=== PATIENT | female | born 1950 | race Caucasian/White ===

== ENCOUNTER 2020-12-05 13:55 | Emergency (ER) | payer OTHER, SELFPAY ==
[2020-12-05 13:57] VITALS: BP 182/101; PULSE 78; RESP 18; TEMP 36.9; O2SAT 98; BMI 28.3
[2020-12-05 15:01] VITALS: BP 141/66; PULSE 82; O2SAT 96
--- NOTE | 2020-12-05 15:17 | XR_ITS ---
PROCEDURE: XR CHEST PORTABLE CLINICAL HISTORY: SOB COMPARISON: No exams were available for comparison FINDINGS: The cardiomediastinal silhouette and pulmonary vascularity are within normal limits. The lungs are clear without infiltrates, suspicious nodules, or pleural effusions. No acute bony abnormalities. IMPRESSION: No acute findings. Dictated by: Umang Cates MD 12/05/2020 15:46 Umang Cates MD in [place] 12/05/2020 15:46
[2020-12-05 15:30] VITALS: BP 165/95; PULSE 81; O2SAT 98
[2020-12-05 16:00] VITALS: BP 170/84; PULSE 81; O2SAT 98
[2020-12-05 16:30] VITALS: BP 155/81; PULSE 75; O2SAT 97
[2020-12-05 17:05] VITALS: BP 155/81; PULSE 75; RESP 20; TEMP 36.9; O2SAT 98
--- NOTE | 2020-12-05 17:07 | PC.NURSE ---
Pt needs to leave due to her ride leaving her, requesting that she get the paper work to sign out. MD epstein
--- NOTE | 2020-12-05 17:10 | HMH.EDGENADL ---
ED Disposition Clinical Impression: Shortness of breath Disposition: Left Against Medical Advice Condition on Discharge: Good Referrals: Provider,Referral, [Primary Care Provider] - - Critical Care Critical Care Time: No Attestation: On 12/05/20, the high probability of a clinically significant, sudden or life threatening deterioration of the following system(s) required my full and direct attention, intervention and personal management. The time I documented below is in addition to time spent performing reported procedures but includes the following listed in this critical care notation. Medical Decision Making - Medical Records Medical records reviewed: Yes: I reviewed the patient's medical records. - Roque Inquiry Pt receiving controlled substance: No Vital Signs: 12/05/20 13:57 12/05/20 15:01 12/05/20 15:30 Temperature 98.5 F Temperature Source Oral Pulse Rate 82 81 Pulse Rate [Left Radial] 78 Respiratory Rate 18 Blood Pressure 141/66 H 165/95 H Blood Pressure [Right Arm] 182/101 H Blood Pressure Mean 105 118 Blood Pressure Mean [Right Arm] 128 Blood Pressure Source [Right Arm] Automatic Cuff Blood Pressure Position [Right Arm] Sitting 02 Sat by Pulse Oximetry 98 96 98 Oxygen Delivery Method Room Air 12/05/20 16:00 12/05/20 16:30 12/05/20 17:05 Temperature 98.5 F Temperature Source Oral Pulse Rate 81 75 75 Pulse Rate [Left Radial] Respiratory Rate 20 Blood Pressure 170/84 H 155/81 H 155/81 H Blood Pressure [Right Arm] Blood Pressure Mean 112 110 Blood Pressure Mean [Right Arm] Blood Pressure Source [Right Arm] Blood Pressure Position [Right Arm] 02 Sat by Pulse Oximetry 98 97 Oxygen Delivery Method Room Air - Lab Data Lab Results 12/05/20 17:05: WBC 10.5, RBC 4.39, Hgb 13.3, Hct 40.9, MCV 93.3, MCH 30.4, MCHC 32.5, RDW 13.5, Plt Count 247, MPV 8.9, Neut % (Auto) 67.5, Lymph % (Auto) 23.4, [place] % (Auto) 6.9, Eos % (Auto) 1.5, Baso % (Auto) 0.7, Neut # (Auto) 7.1, Lymph # (Auto) 2.5, [place] # (Auto) 0.7, Eos # (Auto) 0.2, Baso # (Auto) 0.1 12/05/20 17:05: Sodium 140, Potassium 4.3, Chloride 102, Carbon Dioxide 26, Anion Gap 16.3 H, BUN 16, Creatinine 1.10 H, Estimated Creat Clear 58, Estimated GFR 49 L, Est GFR ( Amer) 59, Glucose 100, Calcium 9.9, Total Bilirubin 0.3, AST 34, ALT 29, Alkaline Phosphatase 74, Troponin I < 0.01, NT-Pro-B Natriuret Pep 215 H, Total Protein 7.5, Albumin 4.4, Globulin 3.1, Albumin/Globulin Ratio 1.4 12/05/20 17:05: D-Dimer 0.61 H Result diagrams: 12/05/20 17:05 12/05/20 17:05 Orders (Tests/Meds): ORDERS Category Date Time Status ECG Request by /Bina Stat Y 12/05/20 15:18 Ordered Medical Decision Narrative: Pt to the ED as a 70 year old female who comes in for chronic shortness of breath and wanting a cardiac stress test. DDx includes ACS, PE, PTX, or pneumonia. Pt will have CBC, CMP, troponin, CXr and D-Dimer for this. CXR with no evidence of pleural effusion, prior to getting labs back pt stated that her ride was here and that she needed to go, pt was informed that I am unable to intervene on her symptoms or diagnose these without more workup and she has stated that she understands this and she will come back if her symptoms get worse. I discussed that pt could be having a life threatening problem that we could miss and she is able to verbalise these risks and understands them. After pt left I did view her labs which did not show an initial elevated troponin, no anemia, or significant BNP elevation. D dimer elevated at 0.6 but would be below her cutoff for age adjusted score and the years criteria. Pt was encouraged prior to leaving to followup with her PCP for possible cardiology followup evaluation. General Adult HPI - General Chief complaint: Shortness of Breath/Dyspnea Stated complaint: soa, congestion, cough Time Seen by Provider: 12/05/20 14:00 Mode of Arrival: Wheelchair Limitati
[2020-12-05 17:29] LABS: Chloride 102 mmol/L (98-107); Potassium 4.3 mmoL/L (3.5-5.1); Sodium 140 mmol/L (136-145)
[2020-12-05 17:32] LABS: Alanine Aminotransferase 29 U/L (12-78); Albumin Level 4.4 g/dl (3.5-5.0); Albumin/Globulin Ratio 1.4 (1.1-1.8); Alkaline Phosphatase 74 U/L (38-126); Anion Gap 16.3 mEq/L (5-15); Aspartate Amino Transferase 34 U/L (14-36); Bilirubin,Total 0.3 mg/dl (0.2-1.3); Blood Urea Nitrogen 16 mg/dl (7-17); Carbon Dioxide 26 mmol/L (22.0-30.0); Creatinine Clearance Estimated 58 mL/min (50-200); Estimated Glomerular Filt Rate 49 ml/min (>60); GFR (African American) 59 ML/MIN (>60); Globulin 3.1 g/dL (1.3-3.2); Total Protein,Serum 7.5 g/dl (6.3-8.2)
[2020-12-05 17:33] LABS: Calcium 9.9 mg/dl (8.4-10.2); Glucose 100 mg/dl (74-100)
[2020-12-05 17:38] LABS: Basophils # 0.1 K/mm3 (0-0.2); Basophils % 0.7 % (0.1-2.0); Eosinophils # 0.2 K/mm3 (0.0-0.4); Eosinophils % 1.5 % (0.1-12.0); Hematocrit 40.9 % (37.0-47.0); Hemoglobin 13.3 g/dL (12.2-16.2); Lymphocytes # 2.5 K/mm3 (0.7-4.5); Lymphocytes % 23.4 % (10-50); Mean Corpuscular HGB Conc 32.5 g/dL (31.8-35.4); Mean Corpuscular Hemoglobin 30.4 pg (27.0-31.2); Mean Corpuscular Volume 93.3 fl (81-99); Mean Platelet Volume 8.9 fl (7.4-10.4); Monocytes # 0.7 K/mm3 (0.1-1.0); Monocytes % 6.9 % (1.7-9.3); Neutrophils # 7.1 K/mm3 (1.8-7.8); Neutrophils % 67.5 % (37.0-80.0); Platelet Count 247 K/mm3 (142-424); Red Blood Count 4.39 M/mm3 (4.20-5.40); Red Cell Distribution Width 13.5 % (11.5-17.5); White Blood Count 10.5 K/mm3 (4.8-10.8)
[2020-12-05 17:42] LABS: NT Pro Brain Natriuretic Pep. 215 pg/mL (0-125)
[2020-12-05 17:47] LABS: Troponin I < 0.01 ng/ml (0.00-0.034)
[2020-12-05 18:54] LABS: D-Dimer 0.61 ug/mL (0.0-0.5)
== END 2020-12-05 17:06 | disposition left against medical advice (07) ==
PROVIDERS: Emergency Provider Student in an Organized Health Care Education/Training Program
DX: R06.02 Shortness of breath (principal); R20.0 Anesthesia of skin; R05 Cough
CPT/HCPCS: 36415; 71045; 80053; 83880; 84484; 85025; 85378; 99282

== ENCOUNTER → 2023-01-05 15:40 | Outpatient (CLI) | payer OTHER, SELFPAY ==
[2023-01-05 17:07] LABS: Chloride 103 mmol/L (98-107); Potassium 5.4 mmoL/L (3.5-5.1); Sodium 138 mmol/L (136-145)
[2023-01-05 17:09] LABS: Alanine Aminotransferase 23 U/L (12-78); Alkaline Phosphatase 103 U/L (38-126); Anion Gap 14.4 mEq/L (5-15); Aspartate Amino Transferase 22 U/L (14-36); Bilirubin,Direct 0.3 mg/dl (0.0-0.4); Bilirubin,Indirect 0.2 mg/dL (0.0-0.9); Bilirubin,Total 0.5 mg/dl (0.2-1.3); Bilirubin,Unconjugated 0.2 mg/dL (0.0-1.1); Blood Urea Nitrogen 28 mg/dl (7-17); Calcium 9.2 mg/dl (8.4-10.2); Carbon Dioxide 26 mmol/L (22.0-30.0); Cholesterol 191 mg/dl (140-200); Estimated Glomerular Filt Rate 44 ml/min (>60); GFR (African American) 53 ML/MIN (>60); Glucose 99 mg/dl (74-100); Iron 78 ug/dL (37-170); Triglycerides 261 mg/dl (30-150); VLDL Cholesterol 52 mg/dL (0-40)
[2023-01-05 17:10] LABS: Albumin Level 4.1 g/dl (3.5-5.0); Chol/HDL Ratio 5.2 (1-3.5); HDL Cholesterol 37 mg/dl (40-60); Total Protein,Serum 7.1 g/dl (6.3-8.2)
[2023-01-05 17:19] LABS: Total Iron Binding Capacity 331 ug/dL (265-497)
[2023-01-05 17:21] LABS: Direct LDL Cholesterol 83.36 mg/dL (100-129)
[2023-01-05 17:26] LABS: Free T4 (Free Thyroxine) 1.16 ng/dl (0.78-2.19)
[2023-01-05 17:27] LABS: 25-OH Vitamin D, Total 72.4 ng/mL (30-100)
[2023-01-05 17:41] LABS: Thyroid Stimulating Hormone 1.27 uIU/mL (0.465-4.68)
[2023-01-05 17:52] LABS: Magnesium 1.6 mg/dl (1.6-2.3)
[2023-01-05 18:22] LABS: Basophils # 0.1 K/mm3 (0-0.2); Basophils % 0.4 % (0.1-2.0); Eosinophils # 0.3 K/mm3 (0.0-0.4); Eosinophils % 2.8 % (0.1-12.0); Hematocrit 38.6 % (37.0-47.0); Hemoglobin 12.7 g/dL (12.2-16.2); Lymphocytes # 2.8 K/mm3 (0.7-4.5); Lymphocytes % 25.7 % (10-50); Mean Corpuscular HGB Conc 32.8 g/dL (31.8-35.4); Mean Corpuscular Hemoglobin 30.6 pg (27.0-31.2); Mean Corpuscular Volume 93.5 fl (81-99); Mean Platelet Volume 9.9 fl (7.4-10.4); Monocytes # 0.7 K/mm3 (0.1-1.0); Monocytes % 6.4 % (1.7-9.3); Neutrophils % 64.7 % (37.0-80.0); Platelet Count 241 K/mm3 (142-424); Red Blood Count 4.13 M/mm3 (4.20-5.40); Red Cell Distribution Width 14.7 % (11.5-17.5); White Blood Count 10.9 K/mm3 (4.8-10.8)
== END ==
PROVIDERS: PCP Nurse Practitioner Family; Visit Provider Internal Medicine
DX: R06.00 Dyspnea, unspecified (principal); R00.2 Palpitations; R53.83 Other fatigue; R60.0 Localized edema; R94.30 Abnormal result of cardiovascular function study, unspecified; R94.31 Abnormal electrocardiogram [ECG] [EKG]; E66.9 Obesity, unspecified; Z68.39 Body mass index [BMI] 39.0-39.9, adult
CPT/HCPCS: 36415; 80048; 80061; 80076; 82306; 83540; 83550; 83735; 84439; 84443; 85025

== ENCOUNTER → 2023-01-15 14:07 | Outpatient (CLI) | payer OTHER, SELFPAY ==
[2023-01-15 15:49] LABS: Anion Gap 15.8 mEq/L (5-15); Blood Urea Nitrogen 24 mg/dl (7-17); Calcium 9.4 mg/dl (8.4-10.2); Carbon Dioxide 25 mmol/L (22.0-30.0); Chloride 102 mmol/L (98-107); Estimated Glomerular Filt Rate 49 ml/min (>60); GFR (African American) 59 ML/MIN (>60); Glucose 106 mg/dl (74-100); Potassium 4.8 mmoL/L (3.5-5.1); Sodium 138 mmol/L (136-145)
== END ==
PROVIDERS: Nurse Practitioner; PCP Nurse Practitioner Family; Visit Provider Internal Medicine
DX: R06.09 Other forms of dyspnea (principal); R94.30 Abnormal result of cardiovascular function study, unspecified; R94.31 Abnormal electrocardiogram [ECG] [EKG]
CPT/HCPCS: 36415; 80048

== ENCOUNTER 2023-01-22 07:27 | Day surgery (SDC) | payer MEDICARE, SELFPAY ==
[2023-01-22] VITALS (11 sets, daily range): BP systolic 109–168; BP diastolic 50–81; PULSE 69–93; RESP 17–20; O2SAT 95–100; BMI 39.4
--- NOTE | 2023-01-22 07:08 | IR_ITS ---
APPROVED REPORT Patient Location: [facility]: YAMILKA Mirza RT (R) PROCEDURES Right heart catheterization Left heart catheterization Left ventriculogram Selective coronary angiogram INDICATION Pulmonary hypertension, Angina pectoris, Abnormal Myoview Informed consent was obtained prior to the procedure. COMPLICATIONS None Estimated Blood Loss: Less than 10 ml TECHNIQUE One percent lidocaine used to anesthetize the right anterior aspect of the wrist. The right radial artery was accessed via the Seldinger technique. A 6 Polish sheath was placed in the right radial artery. 2.5 mg of Verapamil, 800 mcg of nitroglycerin, 1mg Lidocaine and 5000 U Heparin were given through the arterial sheath. The papa catheter was also used to perform left heart catheterization, left ventriculogram and selective coronary angiogram. At the end of the procedure the sheath was removed good hemostasis was achieved using Traclet band, patient was transferred to the postop holding area in stable condition. One percent lidocaine was used to anesthetize the right anterior aspect of the neck. A scaffold setter needle was used to identify the right internal jugular vein. Following this a larger cannulation needle was used to cannulate the right internal jugular vein and a wire was passed into the vein. Prior to the 7 Polish sheath being inserted the wire was confirmed under fluoroscopic guidance to be in the inferior vena cava. A 7 Polish sheath was introduced and a Henriette-Shireen catheter was floated using hemodynamic waveforms in the pulmonary artery, right ventricle , and right atrium. Saturations were obtained in the pulmonary artery and the right atrium. At the end of the procedure the patient was transferred to the postop holding area in stable condition for sheath removal. ANGIOGRAPHIC RESULTS The left main artery Normal The left anterior descending artery Mild diffuse 10% luminal irregularities The circumflex artery Dominant mild diffuse 10% luminal irregularities The right coronary artery Nondominant mild diffuse 10% luminal irregularities The GARCIA ventriculogram reveals Normal 65% The left ventricular end-diastolic pressure 20 mmHg Right atrial pressure 15 mmHg Pulmonary pressure 35/20 mmHg Pulmonary artery occlusion pressure 18 mmHg Right atrial saturation and pulmonary artery saturation both 74% Hemoglobin 12.4 Aortic saturation 99% Cardiac output 6.5 L/min Cardiac index 3.0 IMPRESSION Mild nonflow limiting coronary artery disease Normal ejection fraction Mild pulmonary hypertension Evidence of diastolic dysfunction PLAN 1. Medical management Electronically signed by : Ulysses Durham MD 01/22/2023 10:28:26
--- NOTE | 2023-01-22 08:02 | CA_ITS ---
APPROVED REPORT EXAM: Comprehensive 2D, Doppler, and color-flow Echocardiogram Belly Packer: Jackelin Krishnamurthy, CHAI, RVS Ht: 5 ft 5 in Wt: 237lbs BSA: 2.13 BP: 145/68 mmHg Indications: Pre cardiac Cath, HTN, Fatigue, Palpitations, PHTN, Asthma Echo Enhancing Agent Comments: Large body habitus 2D Dimensions IVSd 0.97 cm LVEF (Visual) 61.70 % PWd 0.99 cm LA Volume 37.50 mL LVDd 5.04 cm LA Volume Index 17.20 mL/m2 (M/F) 16-34 LVDs 3.36 cm Aortic Root 2.97 cm Left Atrium 3.32 cm LVOT 2.07 cm (M/F) 1.5-2.5 M-Mode Dimensions LA Diam 4.47 cm (1.9-4.0) LVDd 5.88 cm (3.5-5.7) Ao Diam 3.37 cm (2.0-3.7) LVDs 4.05 cm (3.5-5.7) EF (Teich) 58.10% EPSs 0.64 cm FS 31.10% EDV (Teich) 171.90 mL TAPSE 2.78 (<1.7) ESV (Teich) 72.10 mL LV Diastology E Decel Time 193.00 (160-240 msec) E/A Ratio 0.74 MED E' 4.10 (< 7 cm/sec) MED A' 10.00 cm/s E'/MED E' Ratio 17.76 (>14) LAT E' 7.30 (<10 cm/sec) LAT A' 11.00 cm/s E/LAT E' Ratio 9.97 (>14) Aortic Valve LVOT Max 130.00 (70-110 cm/s) LVOT VTI 25.59 cm AoV Peak Tyree. 185.00 (50-130 cm/s) AO Peak GR. 13.70 mmHg AO Mean GR. 6.80 (<5 mmHg) AO VTI 34.95 (18-25 cm) MARGUERITE (VTI) 2.46 (2.5-4.5 cm2) Mitral Valve MV A Velocity 98.00 (40-130 cm/s) E/A Ratio 0.74 MV Decel. Time 193.00 (160-240 ms) Pulmonary Valve PV Peak Velocity 102.00 (50-150 cm/s) Left Ventricle The left ventricle is normal size. The left ventricular systolic function is normal. The left ventricular ejection fraction is within the normal range. There is increased LV wall thickness. There is normal LV segmental wall motion. Transmitral Doppler flow pattern suggests impaired LV relaxation. LVEF is 55%. Right Ventricle The right ventricle is normal size. The right ventricular systolic function is normal. There is increased RV wall thickness. Atria The left atrium size is mildly dilated. The right atrium size is normal. The interatrial septum is not well visualized. Aortic Valve The aortic valve opens well. There is no aortic valvular stenosis. No aortic regurgitation is present. Mitral Valve The mitral valve is normal in structure. No evidence of mitral valve stenosis. Trace mitral regurgitation. Tricuspid Valve The tricuspid valve leaflets are thin and pliable. Trace tricuspid regurgitation. RVSP is normal. Pulmonic Valve The pulmonary valve is normal in structure. Trace pulmonic regurgitation. Great Vessels The aortic root is normal in size. The ascending aorta is normal in size. IVC is normal in size and collapses >50% with inspiration. Pericardium Trivial pericardial effusion is present. Other Information Study Quality: Fair Conclusion Normal biventricular systolic function. Mild RV dilatation. Trivial pericardial effusion. Electronically signed by : Saundra Kaiser MD 01/24/2023 21:45:08
[2023-01-22 08:49] LABS: Basophils # 0.1 K/mm3 (0-0.2); Basophils % 0.4 % (0.1-2.0); Eosinophils # 0.3 K/mm3 (0.0-0.4); Eosinophils % 2.2 % (0.1-12.0); Hematocrit 36.4 % (37.0-47.0); Hemoglobin 12.4 g/dL (12.2-16.2); Lymphocytes # 2.7 K/mm3 (0.7-4.5); Lymphocytes % 21.6 % (10-50); Mean Corpuscular HGB Conc 34.1 g/dL (31.8-35.4); Mean Corpuscular Hemoglobin 32.2 pg (27.0-31.2); Mean Corpuscular Volume 94.3 fl (81-99); Mean Platelet Volume 8.6 fl (7.4-10.4); Monocytes # 0.9 K/mm3 (0.1-1.0); Monocytes % 6.9 % (1.7-9.3); Neutrophils # 8.7 K/mm3 (1.8-7.8); Neutrophils % 68.9 % (37.0-80.0); Platelet Count 247 K/mm3 (142-424); Red Blood Count 3.86 M/mm3 (4.20-5.40); Red Cell Distribution Width 14.6 % (11.5-17.5); White Blood Count 12.5 K/mm3 (4.8-10.8)
[2023-01-22 08:52] LABS: Chloride 105 mmol/L (98-107); Potassium 4.8 mmoL/L (3.5-5.1); Sodium 137 mmol/L (136-145)
[2023-01-22 08:55] LABS: Anion Gap 13.8 mEq/L (5-15); Blood Urea Nitrogen 29 mg/dl (7-17); Calcium 9.2 mg/dl (8.4-10.2); Carbon Dioxide 23 mmol/L (22.0-30.0); Creatinine Clearance Estimated 66 mL/min (50-200); Estimated Glomerular Filt Rate 40 ml/min (>60); GFR (African American) 49 ML/MIN (>60); Glucose 106 mg/dl (74-100)
[2023-01-22 11:01] LABS: CATHL Arterial O2 SAT 74.6 % (90-100); CATHL Venous O2 SAT 74.6 % (75-80)
== END 2023-01-22 13:13 | disposition home or self-care (01) ==
PROVIDERS: PCP Nurse Practitioner Family; Visit Provider Internal Medicine
DX: R00.2 Palpitations (principal); R06.00 Dyspnea, unspecified; R53.83 Other fatigue; R60.0 Localized edema; R94.30 Abnormal result of cardiovascular function study, unspecified; R94.31 Abnormal electrocardiogram [ECG] [EKG]; I27.20 Pulmonary hypertension, unspecified; Z79.899 Other long term (current) drug therapy
CPT/HCPCS: 80048; 82810; 85025; 93306; 93460; 99152; C1760; C1769; C1894; J1644; Q9967

== ENCOUNTER → 2023-02-10 13:32 | Outpatient (CLI) | payer MEDICARE, SELFPAY ==
[2023-02-10 14:09] LABS: Chloride 102 mmol/L (98-107); Potassium 5.7 mmoL/L (3.5-5.1); Sodium 134 mmol/L (136-145)
[2023-02-10 14:12] LABS: Anion Gap 14.7 mEq/L (5-15); Blood Urea Nitrogen 41 mg/dl (7-17); Calcium 9.2 mg/dl (8.4-10.2); Carbon Dioxide 23 mmol/L (22.0-30.0); Estimated Glomerular Filt Rate 32 ml/min (>60); GFR (African American) 38 ML/MIN (>60); Glucose 104 mg/dl (74-100)
== END ==
PROVIDERS: PCP Nurse Practitioner Family; Visit Provider Internal Medicine
DX: I27.20 Pulmonary hypertension, unspecified (principal); I51.89 Other ill-defined heart diseases; R06.00 Dyspnea, unspecified; R60.0 Localized edema; R94.31 Abnormal electrocardiogram [ECG] [EKG]
CPT/HCPCS: 36415; 80048

== ENCOUNTER → 2023-03-05 13:53 | Outpatient (CLI) | payer MEDICARE, SELFPAY ==
[2023-03-05 15:13] LABS: Anion Gap 18.6 mEq/L (5-15); Blood Urea Nitrogen 25 mg/dl (7-17); Carbon Dioxide 19 mmol/L (22.0-30.0); Chloride 100 mmol/L (98-107); Estimated Glomerular Filt Rate 40 ml/min (>60); GFR (African American) 49 ML/MIN (>60); Glucose 146 mg/dl (74-100); Potassium 4.6 mmoL/L (3.5-5.1); Sodium 133 mmol/L (136-145)
== END ==
PROVIDERS: PCP Nurse Practitioner Family; Visit Provider Internal Medicine
DX: I25.10 Atherosclerotic heart disease of native coronary artery without angina pectoris (principal); I27.20 Pulmonary hypertension, unspecified; I51.89 Other ill-defined heart diseases; R00.2 Palpitations; R06.00 Dyspnea, unspecified; R53.83 Other fatigue; R60.0 Localized edema; R94.30 Abnormal result of cardiovascular function study, unspecified; R94.31 Abnormal electrocardiogram [ECG] [EKG]; Z87.891 Personal history of nicotine dependence
CPT/HCPCS: 36415; 80048

== ENCOUNTER 2023-04-28 14:22 | Outpatient (CLI) | payer MEDICARE, SELFPAY ==
[2023-04-28 15:08] LABS: Basophils # 0.1 K/mm3 (0-0.2); Basophils % 0.7 % (0.1-2.0); Eosinophils # 0.4 K/mm3 (0.0-0.4); Eosinophils % 3.6 % (0.1-12.0); Hematocrit 39.1 % (37.0-47.0); Hemoglobin 12.9 g/dL (12.2-16.2); Lymphocytes # 2.8 K/mm3 (0.7-4.5); Lymphocytes % 27.4 % (10-50); Mean Corpuscular HGB Conc 32.9 g/dL (31.8-35.4); Mean Corpuscular Hemoglobin 30.5 pg (27.0-31.2); Mean Corpuscular Volume 92.8 fl (81-99); Mean Platelet Volume 8.5 fl (7.4-10.4); Monocytes # 0.7 K/mm3 (0.1-1.0); Monocytes % 6.5 % (1.7-9.3); Neutrophils # 6.3 K/mm3 (1.8-7.8); Neutrophils % 61.8 % (37.0-80.0); Platelet Count 258 K/mm3 (142-424); Red Blood Count 4.21 M/mm3 (4.20-5.40); White Blood Count 10.2 K/mm3 (4.8-10.8)
[2023-04-28 15:29] LABS: Chloride 104 mmol/L (98-107)
[2023-04-28 15:30] LABS: Potassium 5.5 mmoL/L (3.5-5.1); Sodium 138 mmol/L (136-145)
[2023-04-28 15:32] LABS: Alanine Aminotransferase 22 U/L (12-78); Alkaline Phosphatase 104 U/L (38-126); Anion Gap 13.5 mEq/L (5-15); Aspartate Amino Transferase 24 U/L (14-36); Bilirubin,Direct 0.4 mg/dl (0.0-0.4); Bilirubin,Total 0.4 mg/dl (0.2-1.3); Blood Urea Nitrogen 28 mg/dl (7-17); Calcium 9.3 mg/dl (8.4-10.2); Carbon Dioxide 26 mmol/L (22.0-30.0); Cholesterol 193 mg/dl (140-200); Estimated Glomerular Filt Rate 34 ml/min (>60); GFR (African American) 41 ML/MIN (>60); Glucose 84 mg/dl (74-100)
[2023-04-28 15:33] LABS: Triglycerides 418 mg/dl (30-150)
[2023-04-28 15:42] LABS: NT Pro Brain Natriuretic Pep. 195 pg/mL (0-125)
[2023-04-28 15:52] LABS: Direct LDL Cholesterol 87.94 mg/dL (100-129)
[2023-04-28 15:54] LABS: Free T4 (Free Thyroxine) 1.12 ng/dl (0.78-2.19)
[2023-04-28 16:28] LABS: Albumin Level 4.1 g/dl (3.5-5.0); Chol/HDL Ratio 5.8 (1-3.5); HDL Cholesterol 33 mg/dl (40-60); Magnesium 1.7 mg/dl (1.6-2.3)
== END 2023-04-28 23:59 ==
LOC: LAB 14:24
PROVIDERS: PCP Nurse Practitioner Family; Visit Provider Physician Assistant
DX: I25.10 Atherosclerotic heart disease of native coronary artery without angina pectoris (principal); I27.20 Pulmonary hypertension, unspecified; R06.00 Dyspnea, unspecified; R53.83 Other fatigue; R60.0 Localized edema; R94.31 Abnormal electrocardiogram [ECG] [EKG]; I50.30 Unspecified diastolic (congestive) heart failure
CPT/HCPCS: 36415; 80048; 80061; 80076; 83735; 83880; 84439; 84443; 85025

== ENCOUNTER 2023-07-30 12:52 | Outpatient (CLI) | payer MEDICARE, SELFPAY ==
[2023-07-30 13:35] LABS: Chloride 108 mmol/L (98-107)
[2023-07-30 13:36] LABS: Sodium 141 mmol/L (136-145)
[2023-07-30 13:38] LABS: Blood Urea Nitrogen 36 mg/dl (7-17); Estimated Glomerular Filt Rate 30 ml/min (>60); GFR (African American) 36 ML/MIN (>60)
[2023-07-30 13:39] LABS: Calcium 9.3 mg/dl (8.4-10.2); Carbon Dioxide 25 mmol/L (22.0-30.0); Glucose 115 mg/dl (74-100)
[2023-07-30 13:48] LABS: NT Pro Brain Natriuretic Pep. 62.5 pg/mL (0-125)
== END 2023-07-30 23:59 | disposition home or self-care (01) ==
LOC: LAB 12:53
PROVIDERS: PCP Nurse Practitioner Family; Visit Provider Physician Assistant
DX: I25.10 Atherosclerotic heart disease of native coronary artery without angina pectoris (principal); R06.02 Shortness of breath; Z79.899 Other long term (current) drug therapy
CPT/HCPCS: 36415; 80048; 83880

== ENCOUNTER 2023-08-13 12:56 | Outpatient (CLI) | payer MEDICARE, SELFPAY ==
[2023-08-13 14:50] LABS: Anion Gap 14.9 mEq/L (5-15); Blood Urea Nitrogen 24 mg/dl (7-17); Calcium 9.6 mg/dl (8.4-10.2); Carbon Dioxide 27 mmol/L (22.0-30.0); Chloride 99 mmol/L (98-107); Estimated Glomerular Filt Rate 40 ml/min (>60); GFR (African American) 49 ML/MIN (>60); Glucose 103 mg/dl (74-100); Potassium 4.9 mmoL/L (3.5-5.1); Sodium 136 mmol/L (136-145)
[2023-08-13 14:57] LABS: NT Pro Brain Natriuretic Pep. 152 pg/mL (0-125)
== END 2023-08-13 23:59 | disposition home or self-care (01) ==
PROVIDERS: PCP Nurse Practitioner Family; Visit Provider Physician Assistant
DX: R06.09 Other forms of dyspnea (principal); N18.4 Chronic kidney disease, stage 4 (severe); R60.0 Localized edema
CPT/HCPCS: 36415; 80048; 83880

== ENCOUNTER 2023-10-15 13:11 | Outpatient (CLI) | payer MEDICARE, SELFPAY ==
[2023-10-15 13:59] LABS: Basophils # 0.1 K/mm3 (0-0.2); Basophils % 0.8 % (0.1-2.0); Eosinophils # 0.2 K/mm3 (0.0-0.4); Eosinophils % 2.2 % (0.1-12.0); Hematocrit 39.4 % (37.0-47.0); Hemoglobin 13.1 g/dL (12.2-16.2); Lymphocytes # 3.1 K/mm3 (0.7-4.5); Lymphocytes % 28.1 % (10-50); Mean Corpuscular HGB Conc 33.3 g/dL (31.8-35.4); Mean Corpuscular Volume 93.3 fl (81-99); Mean Platelet Volume 9.1 fl (7.4-10.4); Monocytes # 0.6 K/mm3 (0.1-1.0); Monocytes % 5.4 % (1.7-9.3); Neutrophils % 63.5 % (37.0-80.0); Platelet Count 209 K/mm3 (142-424); Red Blood Count 4.23 M/mm3 (4.20-5.40)
[2023-10-15 14:04] LABS: Alanine Aminotransferase 21 U/L (12-78); Albumin Level 4.2 g/dl (3.5-5.0); Alkaline Phosphatase 69 U/L (38-126); Anion Gap 11.9 mEq/L (5-15); Aspartate Amino Transferase 23 U/L (14-36); Bilirubin,Indirect 0.5 mg/dL (0.0-0.9); Bilirubin,Total 0.5 mg/dl (0.2-1.3); Bilirubin,Unconjugated 0.6 mg/dL (0.0-1.1); Blood Urea Nitrogen 31 mg/dl (7-17); Calcium 9.7 mg/dl (8.4-10.2); Carbon Dioxide 25 mmol/L (22.0-30.0); Chloride 102 mmol/L (98-107); Chol/HDL Ratio 3.6 (1-3.5); Cholesterol 142 mg/dl (140-200); Estimated Glomerular Filt Rate 29 ml/min (>60); GFR (African American) 36 ML/MIN (>60); Glucose 95 mg/dl (74-100); HDL Cholesterol 40 mg/dl (40-60); Magnesium 1.7 mg/dl (1.6-2.3); Potassium 4.9 mmoL/L (3.5-5.1); Sodium 134 mmol/L (136-145); Total Protein,Serum 6.8 g/dl (6.3-8.2); Triglycerides 209 mg/dl (30-150); VLDL Cholesterol 42 mg/dL (0-40)
[2023-10-15 14:15] LABS: Direct LDL Cholesterol 63.18 mg/dL (100-129)
== END 2023-10-15 23:59 | disposition home or self-care (01) ==
LOC: LAB 13:12
PROVIDERS: PCP Nurse Practitioner Family; Visit Provider Physician Assistant
DX: I25.10 Atherosclerotic heart disease of native coronary artery without angina pectoris (principal); I51.89 Other ill-defined heart diseases; I27.20 Pulmonary hypertension, unspecified; R94.31 Abnormal electrocardiogram [ECG] [EKG]; R00.2 Palpitations; R53.83 Other fatigue; R60.0 Localized edema; R06.09 Other forms of dyspnea; N18.4 Chronic kidney disease, stage 4 (severe); E66.9 Obesity, unspecified; Z87.891 Personal history of nicotine dependence
CPT/HCPCS: 36415; 80048; 80061; 80076; 83735; 85025

== ENCOUNTER 2023-12-23 14:33 | Outpatient (CLI) | payer MEDICARE, SELFPAY | END 2023-12-23 23:59 | disposition home or self-care (01) | LOC: LAB 14:35 | PROVIDERS: PCP Nurse Practitioner Family; Visit Provider Physician Assistant | DX: R00.2 Palpitations (principal); I27.20 Pulmonary hypertension, unspecified | CPT/HCPCS: 93225; 93227 ==

== ENCOUNTER 2023-12-25 14:57 | Outpatient (CLI) | payer MEDICARE, SELFPAY | END 2023-12-25 23:59 | disposition home or self-care (01) | LOC: RT 14:59 | PROVIDERS: PCP Nurse Practitioner Family; Visit Provider Physician Assistant | DX: R00.2 Palpitations (principal) | CPT/HCPCS: 93270 ==

== ENCOUNTER 2024-01-25 13:34 | Outpatient (CLI) | payer MEDICARE, SELFPAY ==
[2024-01-25 14:24] LABS: Basophils # 0.1 K/mm3 (0-0.2); Basophils % 0.9 % (0.1-2.0); Eosinophils # 0.2 K/mm3 (0.0-0.4); Eosinophils % 1.7 % (0.1-12.0); Hematocrit 40.6 % (37.0-47.0); Hemoglobin 13.3 g/dL (12.2-16.2); Lymphocytes # 2.7 K/mm3 (0.7-4.5); Lymphocytes % 25.5 % (10-50); Mean Corpuscular HGB Conc 32.8 g/dL (31.8-35.4); Mean Corpuscular Hemoglobin 29.8 pg (27.0-31.2); Mean Corpuscular Volume 90.9 fl (81-99); Mean Platelet Volume 8.4 fl (7.4-10.4); Monocytes # 0.6 K/mm3 (0.1-1.0); Monocytes % 5.3 % (1.7-9.3); Neutrophils # 7.2 K/mm3 (1.8-7.8); Neutrophils % 66.6 % (37.0-80.0); Platelet Count 228 K/mm3 (142-424); Red Blood Count 4.47 M/mm3 (4.20-5.40); White Blood Count 10.7 K/mm3 (4.8-10.8)
[2024-01-25 14:32] LABS: Alanine Aminotransferase 19 U/L (12-78); Albumin Level 3.9 g/dl (3.5-5.0); Alkaline Phosphatase 63 U/L (38-126); Aspartate Amino Transferase 22 U/L (14-36); Bilirubin,Direct 0.4 mg/dl (0.0-0.4); Bilirubin,Indirect 0.2 mg/dL (0.0-0.9); Bilirubin,Total 0.6 mg/dl (0.2-1.3); Bilirubin,Unconjugated 0.2 mg/dL (0.0-1.1); Blood Urea Nitrogen 24 mg/dl (7-17); Calcium 9.3 mg/dl (8.4-10.2); Carbon Dioxide 23 mmol/L (22.0-30.0); Chloride 106 mmol/L (98-107); Cholesterol 162 mg/dl (140-200); Estimated Glomerular Filt Rate 44 ml/min (>60); GFR (African American) 53 ML/MIN (>60); Glucose 89 mg/dl (74-100); HDL Cholesterol 41 mg/dl (40-60); Sodium 135 mmol/L (136-145); Total Protein,Serum 6.5 g/dl (6.3-8.2); Triglycerides 162 mg/dl (30-150); VLDL Cholesterol 32 mg/dL (0-40)
[2024-01-25 14:42] LABS: Direct LDL Cholesterol 73.08 mg/dL (100-129)
[2024-01-25 14:47] LABS: Free T4 (Free Thyroxine) 1.24 ng/dl (0.78-2.19)
[2024-01-25 15:02] LABS: Thyroid Stimulating Hormone 1.01 uIU/mL (0.465-4.68)
[2024-01-25 19:30] LABS: Anion Gap 10.5 mEq/L (5-15); Potassium 4.5 mmoL/L (3.5-5.1)
== END 2024-01-25 23:59 | disposition home or self-care (01) ==
LOC: LAB 13:36
PROVIDERS: PCP Nurse Practitioner Family; Visit Provider Physician Assistant
DX: E66.9 Obesity, unspecified (principal); N18.4 Chronic kidney disease, stage 4 (severe); I25.10 Atherosclerotic heart disease of native coronary artery without angina pectoris; I27.20 Pulmonary hypertension, unspecified; R94.31 Abnormal electrocardiogram [ECG] [EKG]; R00.2 Palpitations; I11.9 Hypertensive heart disease without heart failure; R06.00 Dyspnea, unspecified
CPT/HCPCS: 36415; 80048; 80061; 80076; 84439; 84443; 85025

== ENCOUNTER 2024-10-27 13:42 | Outpatient (CLI) | payer MEDICARE, SELFPAY ==
--- OUTSIDE RECORDS SUMMARY | 2024-10-27 13:48 | XMS_ITS | Clinical Summary ---
Author Organization [facility] Address [address] [place] [address] Care Team Providers Care Director Of Enterprise Strategy Name Role Phone Anna Kaur SHAVONNE Primary Care Provider Medications furosemide (LASIX) 20 MG tablet Take 1 tablet by mouth Daily. Active potassium chloride (K-DUR,KLOR-CON) 20 MEQ CR tablet Take 1 tablet by mouth Daily. Active Social History Tobacco Use Types Packs/Day Years Used Date Smoking Tobacco: Never Assessed Abuse Screen Answer Date Recorded Unsafe at Home or Work/School Not on file Feels Threatened by Someone? Not on file 12/2022 Does Anyone Keep You from Co ntacting Others or Doint Things Outside the Home? Not on file 01/12/2023 Physical Sign of Abuse Present Not on file 1 Housing Stability Answer Date Recorded Current Living Arrangements Not on file 12/2022 Potentially Unsafe Housing Conditions Not on yeni e 01/12/2023 Family and Community Support Answer Jase e Recorded Help with Day-to-Day Activities Not on file 01/12/2023 Lonely or Isolated Not on file 01/12/2023 Employment Answer Date Recorded Do you want help finding or keeping work or a kiley b? Not on file 01/12/2023 Disabilities Answer Date Recorded Concentrating, Remembering, or Making Decisions Difficulty Not on file 01/12/2023 Doing Errands Independently Difficulty Not on fi le 01/12/2023 Education Answer Date Recorded Help with school or training? Not on file Preferred Language Not on file 01/12/2023 Comments Unknown Sex and Gender Information Value Date Recorded Sex Assigned at Not on file Legal Sex Female 1:25 PM EDT Gender Identity Not on file Sexual Orientation Not on file Plan of Treatment Health Maintenance Due Date Last Done Comments DXA SCAN 1950 TDAP/TD VACCINES (1 - Tdap) 1969 MAMMOGRAM 1990 COLOGUARD 09/27/1995 COLON CANCER SCREENING 5 YEAR SIGMOIDOSCOPY 09/27/1995 COLONOSCOPY 09/27/1995 COLORECTAL CANCER SCREENING 09/27/1995 CT COLONOGRAPHY 09/27/1995 FECAL OCCULT BLOOD TEST 09/27/1995 FIT Testing (1 year) 09/27/1995 Pneumococcal Vaccine 50+ (1 of 1 - PCV) 2000 ZOSTER VACCINE (1 of 2) 2000 ANNUAL PHYSICAL 12/19/2022 HEPATITIS C SCREENING 12/19/2022 COVID-19 Vaccine ( - 2023- season) 2023 INFLUENZA VACCINE 01/04/2025 Care Teams Director Of Enterprise Strategy Relationship Specialty Start Date End Date Anna Kaur APRN PCP - General Nurse Practitioner 01/02/23
--- OUTSIDE RECORDS SUMMARY | 2024-10-27 13:48 | XMS_ITS | Data Portability ---
Author Organization [facility] AL KahnS JENNER CLOSED Address [address] [place] [address] Care Team Providers Care Certified Bench Jeweler Technician Name Role Phone BEN MCNULTY Home School Liaison Officer OZZY JOLLY Primary Care Provider Assessment No assessment recorded. Plan of Treatment Reminders Order Date Submit Date Provider Last Modified By Organization Details Last Modified Time Details Appointments None record ed. Lab None record ed. Referral None record ed. Procedures None record ed. Surgeries None record ed. Imaging None record ed. Medication Orders None record ed. Patient TargetsNo targets recorded. Patient InstructionsNo instructions recorded. Reason for Referral None Reported. Results Created Date Observation Date Name Description Value Unit Range Abnormal Flag Note LastModifiedBy Organization Detail LastModifiedTime 02/02/20 24 02/01/2024 intra ocula r lens biome try No observ ation record ed. [email or web address] Not Available 2023 14:06:46 06/11/19 25 06/10/2024 optic al coher ence tomog bob, retin a No observ ation record ed. [email or web address] Not Available 2024 14:07:44 Result Notes None recorded. Problems Name Problem SNOMED Code Status Onset Date Resolution Date Notes Provider Name and Address Organization Details Recorded Time Hypertens yoni disorder 39721804 Active 2014 From Automated Load;Prov ider: Camelia Marques tatus: Active Not Available [facility] 6 04:41:44 Chronic obstructi ve pulmonary disease 78992635 Active 2014 From Automated Load;Prov ider: Bobbi Marques;S tatus: Active Not Available [facility] 6 04:41:44 Clinical finding Active 2014 From Automated Load;Prov ider: Abhijeet Marqueschenjerod;S tatus: Active Not Available [facility] 6 04:41:44 Dyspnea 502224126 Active 2014 From Automated Load;Prov ider: Abhijeet Marqueschenjerod;S tatus: Active Not Available [facility] 6 04:41:44 Eczema 30323315 Active 2014 From Automated Load;Prov ider: Abhijeet Marqueschenjerod;S tatus: Active Not Available [facility] 6 04:41:44 Hyperlipi demia 45846006 Active 2014 From Automated Load;Prov ider: Bobbi Marques;S tatus: Active Not Available [facility] 6 04:41:44 Excess skin of eyelid 734825349 Active 2015 From Automated Load;Prov ider: Elise Gtz;Stat us: Active Not Available [facility] 6 04:41:44 Age-relat ed nuclear cataract of right eye 61754259587 9109 Active 2015 From Automated Load;Prov ider: Elise Gtz;Stat us: Active Not Available [facility] 6 04:41:44 Asthma 913725196 Active 2015 From Automated Load;Prov ider: Bobbi Marques;S tatus: Active Not Available [facility] 04:41:44 Problem Notes None recorded. Procedures Surgical History Date Name Laterality Status Provider Name and Address Organization Details Recorded Time 04/20/19 25 Cataract Extraction, Complex - Regis completed BEN MCNULTY MD [address] [place] [address], [phone], [facility] 04/20/2024 11:44:01 04/20/19 25 Cataract (right) removal with iol completed Edna Beltran [facility] 04/21/2024 09:52:00 02/01/20 24 Axial Length, IOL Master completed BEN MCNULTY MD [address] [place] [address], [phone], [facility] 02/01/2024 15:37:39 03/09/20 23 Spirometry completed GILMER WHITMAN PA-C [address] [place] [address], [address] [place] [address], [facility] 03/18/2023 16:50:58 12/14/19 21 Stress Test - Nuclear Lexiscan completed TEJAL OLVERA MD [address] [place] [address], [address] [place] [address], [facility] 12/13/2020 16:03:58 12/10/19 17 Spirometry completed GILMER WHITMAN PA-C [address] [place] [address], [address] [place] [address], [facility] 12/09/2016 17:31:54 07/31/19 17 Spirometry completed GILMER WHITMAN PA-C [address] [place] [address], [address] [place] [address], [facility] 07/30/2016 13:46:23 Appendectomy completed Aminah Ortega [facility] 07/30/2016 10:57:32 cataract surgery completed RANDY DIALLO MD [address] [place] [address], [address] [place] [address], [facility] 07/13/2020 14:51:24 cardiac catheterization completed Kathe Henry [facility] 03/09/2023 09:59:01 Imaging Results None recorded. Procedure Notes None recorded. Medical Equipment None Reported. Allergies Allergen ID Allergen Name Allergen Category Reaction Reaction Severity Criticality Documentation Date Start Date Code Code System Note Provider Name and Address Organization Details Recorded Time 502298 tetracycl ine hydrochlo ride medicatio n rash moderate Not available 02/29/20162014 85529 6 RxNorm React ion: RASH; Sever ity: Moder ate; Comme nt: Creat ed By: Gaviota garcia Date: 2014 10:11 :37 AM; Not Available [facility] 6 09:56:45 125983 albuterol medicatio n rash Not available Not available 11/30/2017 435 [facility] 15:12:44 551542 allopurin ol medicatio n rash moderate Not available 11/30/2017 519 RxNorm Alice ReyesRaulito waldrop [facility] 8 15:13:07 Medications Name Sig Start Date Stop Date Status Note LastModified by Organization Details LastModified Time atorvasta tin 40 mg tablet Take 1 tablet every day by oral route. active Not Available Not Available No t Available Augmentin 875 mg-125 mg tablet Take 1 tablet every 12 hours by oral route for 10 days. 10/16 completed Not Available Not Available Not Available prednison e 10 mg tablet Take 4 tablets every day by oral route for 5 days. 08/12 completed Not Available Not Available Not Available torsemide 20 mg tablet Take 1 tablet every day by oral route. active Not Available Not Available No t Available albuterol sulfate 2.5 mg/3 mL (0.083 %) solution for nebulizat ion Inhale 3 mL 4 times a day by nebuliza tion route as needed for 30 days. 03/09 completed Not Available Not Available Not Available lisinopri l 20 mg tablet TAKE ONE TABLET BY MOUTH DAILY 11/27 completed Not Available Not Available Not Available prednison e 20 mg tablet Take 2 tablets every day by oral route for 5 days. 09/22 completed Not Available Not Available Not Available Zithromax Z-Bar 250 mg tablet TAKE 2 TABLETS (500 MG) BY ORAL ROUTE ONCE DAILY FOR 1 DAY THEN 1 TABLET (250 MG) BY ORAL ROUTE ONCE DAILY FOR 4 DAYS 08/12 completed Not Available Not Available Not Available Advair Diskus 100 mcg-50 mcg/dose powder for inhalatio n Two times a day 07/30 completed Instruct ions: USE 1 PUFF BY MOUTH TWICE A DAY;Freq uency: bid;Medi cation Descript ion: fluticas one-salm eterol; Dosage:a s directed ; Route:in halation ; refills: 3; Quantity :1 powder Not Available Not Available Not Available potassium chloride ER 10 mEq tablet,ex tended release TAKE 1 TABLET BY MOUTH EVERY DAY 2020 active Not Available Not Available Not Avai lable amlodipin e 5 mg tablet Take 1 tablet every day by oral route. active Not Available Not Available No t Available allopurin ol 100 mg tablet Take 1 tablet every day by oral route. 11/30 completed Not Available Not Available Not Available Depo-Medr ol 80 mg/mL suspensio n for injection Take 1 mL by injectio n route. 10/16 completed Not Available Not Available Not Available pramipexo le 0.5 mg tablet TAKE 1 TABLET BY MOUTH EVERY NIGHT AT BEDTIME 2020 active Not Available Not Available Not Avai lable prednisol one acetate 1 % eye drops,ashanti pension INSTILL 1 DROP INTO RIGHT EYE BY OPHTHALM IC ROUTE 4 TIMES PER DAY FOR 1 WEEK THEN FOLLOW INSTRUCT ION SHEET PROVIDED 2024 active Not Available Not Available Not Avai lable simvastat in 20 mg tablet TAKE ONE TABLET BY MOUTH EVERY NIGHT AT BEDTIME 03/09 completed Not Available Not Available Not Available lisinopri l 10 mg tablet TAKE 1 TABLET BY MOUTH EVERY DAY 07/24 completed Not Available Not Available Not Available Aldara 5 % topical cream packet Three times a week 10/16 completed Instruct ions: Quantity 15g;Freq uency: 3x /week;Me dication Descript ion: imiquimo d topical; Dosage:a s directed ; Route:to pical; refills: 2; Quantity :1 cream Not Available Not Available Not Available Calcium-6 00 600 mg (as calcium carbonate 1,500 mg) tablet Two times a day active Duration : 30 days;David quency: bid;Medi cation Descript ion: calcium carbonat e; Dosage:1 ; Route:or al; refills: 0; Quantity :60 tablet Not Available Not Available Not Available lansopraz ole 15 mg capsule,d elayed release Take by oral route. active Not Available Not Available No t Available hydrochlo rothiazid e 25 mg tablet TAKE ONE TABLET BY MOUTH DAILY 11/27 completed Not Available Not Available Not Available furosemid e 20 mg tablet TAKE 1 TABLET BY MOUTH EVERY DAY 03/09 completed Not Available Not Available Not Available Cheratuss in AC 10 mg-100 mg/5 mL oral liquid Take 5 mL 3 times a day by oral route as needed for 7 days. 10/16 completed Not Available Not Available Not Available colchicin e 0.6 mg tablet Take 1 tablet every day by oral route. 07/24 completed PRN Not Available Not Available Not Available lisinopri l 40 mg tablet TAKE ONE TABLET BY MOUTH DAILY - MUST KEEP 10/24/21 APPT FOR FURTHER REFILLS! ! 2021 active Not Available Not Available Not Avai lable cefdinir 300 mg capsule Take 1 capsule twice a day by oral route for 10 days. 03/23 completed Not Available Not Available Not Available Ventolin HFA 90 mcg/actua tion aerosol inhaler Inhale 2 puff(s) every 4 hours as needed by inhalati on route. 2020 active Not Available Not Available Not Avai lable Mucinex 600 mg tablet, extended release Take 1 tablet every 12 hours by oral route. 03/23 completed Not Available Not Available Not Available moxifloxa delmar 0.5 % eye drops INSTILL 1 DROP INTO RIGHT EYE BY OPHTHALM IC ROUTE 4 TIMES PER DAY FOR 1 WEEK THEN FOLLOW INSTRUCT ION SHEET PROVIDED 2024 active Not Available Not Available Not Avai lable simvastat in 07/30 completed Medicati on Descript ion: simvasta tin; Route:or al; refills: 0 Not Available Not Available Not Available allopurin ol active Not Available Not Available Not Available Vitamin D3 Daily 03/09 completed Frequenc y: daily;Me dication Descript ion: cholecal ciferol; Dosage:1 ; Route:or al; refills: 0 Not Available Not Available Not Available Zyrtec active Not Available Not Availa ble Not Available Symbicort 160 mcg-4.5 mcg/actua tion HFA aerosol inhaler Two times a day 07/30 completed Duration : 30 days;David quency: bid;Medi cation Descript ion: budesoni de-formo terol; Dosage:2 puffs; Route:in halation ; refills: 3; Quantity :1 aerosol Not Available Not Available Not Available diflupred edda 0.05 % eye drops Instill by ophthalm ic route for 25 days. active Not Available Not Available No t Available Colcrys 03/09 completed Not Available Not Available Not Available Zyrtec 10 mg capsule Take by oral route. 07/24 completed Not Available Not Available Not Available Osteo Bi-Flex 07/30 completed Medicati on Descript ion: miscella neous; refills: 0 Not Available Not Available Not Available Farxiga 10 mg tablet Take 1 tablet every day by oral route. active Not Available Not Available No t Available Incruse Ellipta 62.5 mcg/actua tion powder for inhalatio n 1 puff Daily 11/27 completed Duration : 30 days;David quency: daily;Me dication Descript ion: umeclidi nium; Dosage:1 puff; Route:in halation ; refills: 6; Quantity :1 powder Not Available Not Available Not Available Breo Ellipta 200 mcg-25 mcg/dose powder for inhalatio n INHALE ONE DOSE BY MOUTH DAILY 04/07 completed Not Available Not Available Not Available metoprolo l succinate ER 25 mg capsule sprinkle, ext. release 24 hr Take 1 capsule every day by oral route. active Not Available Not Available No t Available Trelegy Ellipta 200 mcg-62.5 mcg-25 mcg powder for inhalatio n INHALE 1 PUFF BY MOUTH DAILY 2023 active Not Available Not Available Not Avai lable Wegovy 1 mg/0.5 mL subcutane ous pen injector Inject by subcutan eous route. active Not Available Not Available No t Available Vitals Date Recorded Body height Provider Name an d Address Organization Details Last Updated DateTime 04/25/2024 160.02 cm Brenda Patel [facility] 0 04/25/2024 08:43:46 Date Recorded Body height Provider Name an d Address Organization Details Last Updated DateTime 06/10/2024 160.02 cm Ayse Hao [facility] 15:32:28 Date Recorded Body height Provider Name an d Address Organization Details Last Updated DateTime 02/01/2024 160.02 cm Cristofer Webber [facility] 02/01/2024 14:26:26 Social History Question Answer Notes LastModified by Organizat ion Details LastModified Time Tobacco Smoking Status [facility]/17[facility]2016 10:46:26 Do You Have An Advance Directive? No [email or web address] Information not available 11/03/2019 What Is Your Level Of Caffeine Consumption? Moderate Information not available 04/17/2016 How Much Tobacco Do You Chew? None Information not available 04/17/2016 What Type Of Diet Are You Following? REGULAR Information not available 04/17/2016 Which Illicit Or Recreational Drugs Have You Used? No [email or web address] Information not available 11/03/2019 Education 4 Year College Information not available 04/17/2016 Are There Any Guns Present In Your Home? No Information not available 07/24/2020 Hard Of Hearing Or Deaf In One Or Both Ears? No Information not available 07/24/2020 Legally Blind In One Or Both Eyes? No Information no t available 07/24/2020 Live Alone Or With Others? With Others Information not available 04/17/2016 Marital Status Informati on not available 04/17/2016 What Was The Date Of Your Most Recent Tobacco Screening? 11/27/2020 [email or web address] Information not available 11/27/2020 How Many Children Do You Have? 0 Information not available 04/17/2016 Performs Monthly Self-breast Exam? Yes Information no t available 07/24/2020 Seat Belts Used Routinely Yes [email or web address] Information not available 11/03/2019 Are You Sexually Active? Yes Information not available 07/24/2020 Smoke Alarm In Home Yes [email or web address] Information not available 11/03/2019 How Much Tobacco Do You Smoke? 1 PPD Information not available 07/24/2020 General Stress Level Low Information not available 07/24/2020 Do You Use Sunscreen Routinely? Yes Information not available 07/24/2020 On What Date Was Tobacco Cessation Counseling Provided? 07/24/2020 Information not available 07/24/2020 How Many Years Have You Smoked Tobacco? 30 Information not available 07/24/2020 Sex: Female Functional Status Question Answer Note LastModified by Organizat ion Details LastModified Time What is your level of alcohol consumption? None Information not available 04/17/2016 Do you or have you ever used smokeless tobacco? Never used smokeless tobacco [email or web address] Information not available 11/03/2019 Are you currently employed? No Information not available 07/24/2020 Are you able to care for yourself? Yes Information not available 04/17/2016 What is your occupation? Retired Information not available 04/17/2016 Do you or have you ever used e-cigarettes or vape? Never used electronic cigarettes [email or web address] Information not available 11/03/2019 What is your exercise level? None Information not available 07/24/2020 Mental Status None recorded. Family History Relationship Description Onset Age of this Age Resolved Age Notes LastModified by Organization Details LastModified Time Father Allergic rhinitis [email or web address] Not available 07/06 10:56:21 Mother Allergic rhinitis [email or web address] Not available 07/06 10:56:21 Mother Asthma [email or web address] Not availabl e 07/30/2016 10:56:27 Mother Chronic obstructive pulmonary disease [email or web address] Not available 07/06 10:56:33 Maternal Grandmother Heart disease [email or web address] Not available 07/06 10:56:46 Maternal Grandmother Family history of malignant neoplasm liver [email or web address] Not available 07/06 10:57:02 Unspecified Relation Cataract [email or web address] Not available 06/10 14:49:23 Medical History Condition Response Allergies/Hayfever Y Chronic Obstructive Pulmonary Disease Y Glaucoma N Pneumonia Y Diabetic Eye Disease N Sinusitis Y Lazy Eye Y Diabetes N Arthritis Y Eye Trauma N Age-related Macular Degeneration N Double Vision N RD/retinal tear N Ocular trauma N Cataract Y GERD/Reflux Y High Cholesterol Y Hypertension Y Glasses/Contacts Y Gynecological HistoryNo gynecological history recorded. Obstetrics History GPAL:G 0 P 0 0 0 0 Immunizations Vaccine Type Date Status Note Provider Nam e and Address Organization Details Recorded Time pneumococcal polysaccharide PPV23 8 completed Not Available [facility] 04/23/2019 02:46:51 Influenza, high-dose, trivalent, PF 8 completed Not Available [facility] 04/23/2019 02:51:08 Influenza, high-dose, trivalent, PF 9 completed Not Available [facility] 04/23/2019 02:52:20 Pneumococcal conjugate PCV 13 8 completed Not Available [facility] 05/07/2019 02:19:04 Influenza, high-dose, trivalent, PF 7 completed Not Available [facility] 04/23/2019 02:44:54 Influenza, high-dose, quadrivalent, PF 1 completed Nasim Phelps [facility] 01/21/2021 15:14:53 Past Encounters Encounter ID Performer Location Encounter Start Date Encounter Closed Date Diagnosis/Indication Diagnosis SNOMED-CT Code Diagnosis ICD10 Code Diagnosis Note [id number] BOBBI MARQUES DO [address] [place] [address] 04/17/2016 10:08:22 04/17/2016 11:54:42 Routine gynecologic examination done 4220792465 9101 Z01.419 Adult heal th examination 134243387 Z00.00 Essential hypertension 80672204 I10 Screening for malignant neoplasm of breast 948610650 Z12.31 Asthma 119685640 J45.90 9 Acute bronchitis 9743978 2 J20.9 Physical examination 588 0005 Z04.9 [id number] GILMER WHITMAN PA-C PULMONARY [address] [place] [address] 07/30/2016 10:09:52 08/01/2016 07:26:37 Chronic obstructive pulmonary disease 51651188 J44.9 patient has had an increase in wheezing and shortness of breath. Wheezing noted on exam. I will prescribe her Zithromax and 5 days of prednisone . I gave her a prescripti on for albuterol neb refills. To use 3 times a day while she is sick. prescripti on of Robitussin with codeine prescribed . Possible side effects and addictive properties discussed. Do not drive while taking this medication . ROBIN reviewed and on on chart. [id number] BOBBI MARQUES DO FAMILY [address] [place] [address] 08/12/2016 10:46:06 08/12/2016 12:16:12 Chronic obstructive pulmonary disease 30593670 J44.9 Acute sinusitis 46391114 J01.90 Acute bronchitis 6410295 2 J20.9 Cough 31489984 R05 [id number] BOBBI MARQUES DO [address] [place] [address] 10/16/2016 10:08:53 10/16/2016 11:10:19 Chronic obstructive pulmonary disease 75555941 J44.9 Asthma 756179772 J45.90 9 Hyperlipidemia 72397117 E78.5 Essential hypertension 27188209 I10 Restless legs 65418528 G 25.81 Allergic rhinitis 280696 04 J30.9 Gastroesop hageal reflux disease without esophagitis 173889215 K21.9 [id number] GILMER WHITMAN PA-C PULMONARY [address] [address] 11/24/2016 13:14:23 11/24/2016 17:12:58 Moderate persistent asthma 463169978 J45.40 I recommend that she discontinu e Incruse. Her symptoms appear to be more consistent with asthma. Start Breo Ellipta 200 at one inhalation daily. Patient instructed on proper use. I have also prescribed her a prednisone taper as follows. 40 milligrams by mouth daily times 2 days, 30 milligrams for 2 days, 20 milligrams for 2 days, 10 milligrams for 2 days, and 5 milligrams for 2 days. Asthmatic bronchitis 405 756920 J45.909 I have sent a sputum culture to see if she needs further antibiotic s. She has no fever or chills. [id number] GILMER WHITMAN PA-C PULMONARY [address] [facility], [address] [address] 12/09/2016 14:27:18 12/10/2016 08:29:10 Chronic obstructive pulmonary disease 43062045 J44.9 influenza vaccine administer ed today. I do recommend that patient receive Prevnar and Pneumovax. Spirometry is normal. Patient's symptoms are much improved on combinatio n inhaler. She will continue this at one inhalation daily. Continue albuterol as needed. Administra tion of influenza vaccine 05759447 Z23 [id number] GILMER WHITMAN PA-C PULMONARY [address] [facility], [address] [place], [place] [address] 12/09/2016 15:09:37 01/05/2017 19:54:03 [id number] GILMER WHITMAN PA-C PULMONARY [address] [facility], [place] [id number] 03/23/2017 15:01:12 03/24/2017 13:54:13 Asthma 768025499 J45.909 Asthma symptoms are currently well controlled . I recommend patient continue current medication regimen. No signs of acute infection. patient will need a Prevnar 13 and Pneumovax. She did receive an influenza vaccine this season. [id number] ELISE GTZ MD OPHTHALMO LOGY [address] ,[address] [place] [address] 05/04/2017 14:44:04 05/04/2017 15:56:20 Combined form of senile cataract 22782502 H25.819 Pseudophakia 52294161 Z9 6.1 Ptosis of eyebrow 353847 002 H02.409 bilateral Excess skin of eyelid 24 0731084 H02.839 bilatewral Myopic astigmatism 90372 4005 H52.209 bilateral Presbyopia 88955582 H52. 4 [id number] BOBBI MARQUES, [facility] [address] [place] [address] 05/05/2017 13:16:27 05/05/2017 14:08:48 Hyperlipidemia 80714229 E78.5 Essential hypertension 25920847 I10 Chronic ob structive pulmonary disease 88620343 J44.9 Gastroesop hageal reflux disease without esophagitis 792998102 K21.9 Restless legs 00259342 G 25.81 Gout 09001524 M10.9 Osteoarthritis 136744118 M19.90 Allergic rhinitis 067135 04 J30.9 [id number] GILMER WHITMAN PA-C PULMONARY [address] [facility], [place] [phone] 09/22/2017 14:14:08 09/22/2017 16:26:48 Asthma 815705815 J45.909 Asthma symptoms are currently well controlled . I recommend patient continue current medication regimen. No signs of acute infection. Prevnar 13 given today. She will need Pneumovax in 1 year. [id number] BOBBI MARQUES DO [address] [place] [address] 11/30/2017 14:59:37 11/30/2017 15:35:54 Essential hypertension 00356641 I10 Asthma 600422324 J45.90 9 Chronic ob structive pulmonary disease 46041198 J44.9 Hyperlipidemia 04048560 E78.5 Edema of l ower extremity 309273429 R60.0 Gout 71706322 M10.9 Osteoarthritis 900868482 M19.90 [id number] GILMER WHITMAN PA-C PULMONARY [address] [facility], [address] [place] [address] 02/23/2018 15:00:57 02/24/2018 15:51:50 Active or passive immunization 910641003 Z23 Asthma 430532185 J45.90 9 Asthma symptoms are currently well controlled . I recommend patient continue current medication regimen. No signs of acute infection. patient is now up-to-date on immunizati ons. [id number] BOBBI MARQUES DO [address] [place] [address] 06/22/2018 14:16:30 06/22/2018 15:29:57 Essential hypertension 09718600 I10 Chronic ob structive pulmonary disease 74320939 J44.9 Hyperlipidemia 49298165 E78.5 Asthma 425815793 J45.90 9 Gastroesop hageal reflux disease without esophagitis 896151061 K21.9 Restless legs 31920844 G 25.81 Gout 56615453 M10.9 Osteoarthritis 401242175 M19.90 Edema of foot 596354992 R60.0 [id number] BOBBI MARQUES [address] [place] [address] 01/24/2019 14:29:28 01/24/2019 15:42:55 Gout 05469620 M10.9 Essential hypertension 25583995 I10 Edema of l ower extremity 675241334 R60.0 Hyperlipidemia 84847087 E78.5 Restless legs 24708300 G 25.81 Active or passive immunization 425119013 Z23 Chronic ob structive pulmonary disease 52117159 J44.9 Asthma 729738412 J45.90 9 Screening for malignant neoplasm of breast 739766876 Z12.31 Obesity 354889762 E66.9 Screening for malignant neoplasm of colon 111427365 Z12.11 [id number] MAKSIM FAROOQ PA-C [facility] [address] [place] [address] 11/03/2019 15:16:14 11/04/2019 08:55:45 Adult health examination 422468319 Z00.00 diet and exercise discussed Screening for malignant neoplasm of breast 303928560 Z12.39 patient will call MEGHAN and schedule appointmen t Hepatitis C screening 41 1140215 Z11.59 we will send a letter with results Nicotine dependence 5629 4008 Z87.891 patient has stopped smoking Asthma 417491093 J45.90 9 stable Essential hypertension 25435444 I10 reduced sodium diet. Increase lisinopril . Monitor and keep a log of blood pressure. If her blood pressure does not remain below 120/80 on average she will call office Edema of l ower extremity 127749067 R60.0 stable. Restless legs 80248585 G 25.81 stable Acid reflux 950884144 K2 1.9 stable Mixed hyperlipidemia 267 308148 E78.2 low-fat diet Obese 774688347 E66.9 Screening colonoscopy 44 0360071 Z12.11 [id number] INESSA BERRY NP [facility] [address] [place] [address] 07/24/2020 12:34:49 07/24/2020 14:01:03 Asthma 649590151 J45.909 Acid reflux 105332850 K2 1.9 Stable Restless legs 29065864 G 25.81 Stable Essential hypertension 01648223 I10 At goal at home Hyperlipidemia 58547365 E78.5 LDL was 71 on 11/03/19 Edema of l ower extremity 842041503 R60.0 Does not feel like lasix is helping Check BMP today Rec cardiology workup as it is accompanie d by SOB Gout 21339460 M10.9 Off colcrys- raised BP No recent flareups Hyperglycemia 81192320 R 73.9 FBS was 106 on 11/03/19 Serum crea tinine above reference range 387316638 R79.89 Cr was 1.29 on 11/03/19 Morbid obesity 644789150 E66.01 Does very little exercise Declines dietary consult Screening for malignant neoplasm of colon 472088723 Z12.11 Due; declines for now Ex-smoker 7148398 Z87.89 1 quit 2013 Smoked 1 PPD X 30 years Declines LDCT Dyspnea on exertion 6084 5006 R06.09 Rec cardiology workup; if negative may need to repeat PFT [id number] TIMI SALGADO PA-C [facility] [address] [place] [address] ,[address] [place] [address] 08/01/2020 13:19:03 08/01/2020 15:57:45 Dyspnea on exertion 15207316 R06.09 symptoms of dyspnea on exertion with multiple potential causes including obesity, deconditio john, underlying COPD and asthma. She does have risk factors for coronary artery disease including hypertensi on and hyperlipid emia. We'll arrange for a Lexiscan Myoview to investigat e symptoms and evaluate for possible underlying ischemia. [id number] INESSA BERRY NP [facility] [address] [place] [address] 11/27/2020 14:22:42 11/27/2020 15:11:02 Edema of lower extremity 608674673 R60.0 Lower leg swelling-> > WorseningN ormal BNP on 08/01/20Con tinues to take lasix daily->> Cr remains around 1.4-1.5; declined to inc outpatient She cx her stress test rec by cardiology She feels that overall her symptoms are worsening and has limited mobility due to severe edema and progressiv e SOB->>Rec she be evaluated through the ER; she states understand ing and is in agreement Acid reflux 006008380 K2 1.9 Stable Restless legs 33539750 G 25.81 Stable Asthma 628408546 J45.90 9 Former smoker Essential hypertension 87728054 I10 At goal at homeStop HCTZ due to elevated Cr and gout; inc lisinopril to 40mg Hyperlipidemia 07382401 E78.5 LDL was 71 on 11/03/19 Serum crea tinine above reference range 036519350 R79.89 Cr was 1.48; Gout 54072090 M10.9 Off colcrys- raised BP per ptUric acid->>11. 7 Rec rheum consult for uncontroll ed gout Dyspnea on exertion 6084 5006 R06.09 Rec cardiology workup; if negative may need to repeat PFT through pulm [id number] TEJAL OLVERA MD [facility] [address] ,[address] [place] [address] 12/13/2020 12:19:47 12/13/2020 16:29:44 [id number] JESSIE RENE MD PULMON[facility] [address] [place] [address] 01/21/2021 14:00:25 01/24/2021 13:00:26 Dyspnea 620265394 R06.00 CTA-PE and Echo with bubble study. Asthma 249725484 J45.90 9 Gout 70988947 M10.9 per patient request Administra tion of influenza vaccine 17498148 Z23 [id number] GILMER WHITMAN PA-C PULMONARY [address] [place] [address] 03/09/2023 09:42:28 03/09/2023 15:31:44 Cough 00291437 R05.9 Due to worsening cough, ordered a CT chest without contrast. Asthma 059581658 J45.90 9 Asthma symptoms are currently well controlled . I recommend patient continue current medication regimen. No signs of acute infection. patient is now up-to-date on immunizati ons. [id number] BEN MCNULTY MD [facility] [address] [place] [address],[address] [place] [address] 02/01/2024 14:04:02 02/01/2024 15:49:15 Nuclear sclerotic cataract 294580662 H25.11 odDiscusse d cataracts and cataract surgery. I discussed that the decision to have cataract surgery should be determined by how bad the vision affects the patient in their daily lives. I discussed the option of updating the patients glasses and observatio n. I discussed the procedure and post op requiremen ts and expectatio ns. I discussed the risks including retinal detachment , infection in the eye, vision loss, loss of eye or blindness, swelling, inflammati on, bleeding, glaucoma, need for glasses following the procedure. I told them that this is not every possible risk of the procedure. I answered all of the patients questions. The patient voiced understand ing to me. The patient signed a consent today and i gave them a copy. I asked the patient to call if any problems/q uestions/i ssues were to arise prior to their surgery.mo d dilation - may need ringdistan ce vision discussed - rec monofocal lens - will need bifocals afterwardr ec [id number] has 3 piece clear [id number] BEN MCNULTY MD SURGERY SCHEDULE [address] [place] [address] 04/20/2024 09:56:51 04/20/2024 09:57:28 Nuclear sclerotic cataract 471838637 H25.11 [id number] BEN MCNULTY MD [facility] [address] [place],[address] [place] [address] 5 04/21/2024 09:33:20 04/21/2024 10:21:42 Pseudophakia 22442429 Z96.1 Post op Day one - excellent less swelling than expectedSt art prednisolo ne taper QID x 1 week, TID x 1 week, BID x 1 week, Qday x 1 week.Start moxifloxac in Qid x 1 weekDrop info sheet and activity precaution sheet given.No bending/li fting, strenuous activities , water in eye, eye rubbing x 1 week.Shiel d x 1 week.Call for problems. Specifical ly changes in vision, pain, floaters.C all for any questions. 1 week po ar/d od [id number] BEN MCNULTY MD [facility] [address] [place] [address] 5 04/25/2024 08:35:00 04/25/2024 09:35:46 Pseudophakia 23916767 Z96.1 goodcontin ue taper pred/moxi1 mo po mr ou oct mac od if <20/40 [id number] BEN MCNULTY MD [facility] [address] [place],[address] [place] [address] 5 06/10/2024 14:48:40 06/10/2024 16:28:43 Pseudophakia 36398637 Z96.1 excellentm r todayoct mac normal ou1 year Health Concerns Section Related Observation LastModified by Organization Detai ls LastModified Time None Recorded Concern Status LastModified by Organization Details LastModified Time None Recorded Advance Directives Directive N: Payers Insurance Date Sequence Insurance Name Policy Number Policy Reid Covered Member ID Reid Member ID Guarantor Name 06/14/2024 1 [employer] (MEDICARE REPLACEMENT/ ADVANTAGE - PPO) Emma Randall [id number] Emma Randall Notes Date Note Type Note Provider Name and Address Organization Details Recorded Time 02/01/2024 text/html ROS as noted in the HPI BEN MCNULTY MD [address] [place] [address], [phone], [facility] 02/01/2024 15:38:24 06/10/2024 text/html ROS as noted in the HPI BEN MCNULTY MD [address] [place] [address], [phone], [facility] 06/10/2024 16:28:13 OBGyn Episode No OBEpisode recorded.
--- OUTSIDE RECORDS SUMMARY | 2024-10-27 13:48 | XMS_ITS | Data Portability ---
Author Organization [facility] Address [address] [place] [id number] Care Team Providers Care Sustainability Officer Name Role Phone OZZY JOLLY Primary Care Provider [phone] Assessment Encounter Date Assessment Date Assessment LastModified by Organization Details LastModified Time 07/14/2023 07/14/2023 PERSONALIZED HEALTH PLAN (COPY PROVIDED TO PATIENT) 1) Vaccines: (a) Pneumococcal Vaccine - Type: Last Service: Plan: (b) Influenza vaccine - Last Service: Plan: (c) Hepatitis B vaccine - Last Service: Plan: (d) Shingrix Vaccine - Last Service: Plan: Administered: (e) COVID - Last Service: Plan: (f) COVID vaccine booster - Last Service: Plan: (g) Tetanus Vaccine - Last Service: Plan: Administered: 2) Colorectal Cancer Screening for aged 45 75 years: Last service: Finding: cologuard 2022 Plan: 3) Bone Mass Measurements: Last Service: Recommendation: Every 2 years Many older people benefit from taking calcium and vitamin D supplements. Talk to your doctor about supplements. 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: 5) Cardiovascular Disease Screening Tests (Lipid Panel): Last service: followed by cardiology Plan: Cholesterol, serum, total: HDL: Triglycerides: LDL: 6) Lung Screening & Counseling w/low dose CT Last service: Recommendation: Aged 50-80 years, who have a 20 pack-year smoking history and currently smoke or have quit within the past 15 years Plan: 7) Pre-diabetes screening: Recommendation: Last service: Finding: Plan: 8) Diabetes self-management training (diagnosed with diabetes) Last service: Recommendation: Plan: FEMALE ONLY 9) Breast cancer screening Last service: Recommendation: Aged 50 74, once every two years Plan: FEMALE ONLY 10) Screening Pap Tests Last service: Recommendation: Aged 30 65 years, once every five years with pap smear and hrHPV testing in combination with cytology (contesting) Plan: FEMALE ONLY 11) Screening Pelvic Exam (include clinical breast exam Last service: Recommendation: Plan: 12) Medical Nutritional therapy Diet recommendations may include: -Lots of vegetables and fruits -Fewer simple carbohydrates, fats and cholesterol -A moderate amount of protein and dairy Avoid: Artificial sweeteners, Soda, & Processed food. 13) Exercise counseling You should do 30 minutes of aerobic exercise for at least 5 days per week. Regular exercise can help: -Lower heart disease risk -Delay the onset of diabetes -Improve blood pressure, functional status and performance -Reduce the risk of falls and osteoporosis -Enhance mental health and cognitive function 14) Abdominal Aortic Aneurysm screening: . MALE ONLY 15) Prostate Cancer Screening Last service: Recommendation: Plan: 16) Hepatitis C Screening Last service: Recommendation: Plan: 17) Advance Directive discussed with patient. Patient verbalizes understanding and questions answered Plan: : All recommendations have been discussed thoroughly with the patient. Next Medicare Annual Wellness Visit will be due in 1 year. marshall Not available 07/17/2023 08:14:44 05/31/2024 05/31/2024 Reviewed cardiology note from April that showed mild coronary artery disease diagnosed January 2023, mild pulmonary hypertension 01/23/2023 with diastolic dysfunction that is stable, echo was normal marshall Not available 05/31/2024 17:23:15 Plan of Treatment Reminders Order Date Submit Date Provider Last Modified By Organization Details Last Modified Time Details Appointments FOLLOW UP 30 2024 03:00P Omar JOLLY NP Not available Not available Not available Lab lipid panel, serum 2024 025 [facility] (Laboratory), [address] [place], [address], 07/15/2024 17:47:32 uric acid, serum or plasma 2024 025 [facility] (Laboratory), [address] [place], [address], 07/15/2024 17:47:29 iron + TIBC + ferritin, serum [address] (Laboratory), [address] [place], [address], 09/22/2024 14:38:11 vitamin B12 + folate, serum or blood [address] (Laboratory), [address] [place], [address], 09/22/2024 14:38:30 hemoglobi n A1c + average glucose, QN, blood [id number] (Laboratory), [address] [place], [address], 07/22/2024 08:20:57 vitamin D, 25-hydrox y, total, serum [address] (Laboratory), [address] [place], [address], 09/22/2024 14:38:01 culture, urine 2024 025 [facility] (Laboratory), [address] [place], [address], 07/16/2024 07:18:14 urinalysi s, dipstick 2024 025 [facility], [address] [place], [address], 07/15/2024 16:14:59 CMP, serum or plasma 2024 025 [facility] (Laboratory), [address] [place], [address], 07/15/2024 17:47:26 CBC w/ auto diff 2024 025 [facility] (Laboratory), [address] [place], [address], 07/15/2024 16:54:44 TSH, serum or plasma 2024 025 [facility] (Laboratory), [address] [place], [address], 07/15/2024 17:47:27 CMP, serum or plasma 2024 025 [facility] (Laboratory), [address] [place], [address], 05/31/2024 17:13:51 magnesium , serum or plasma 2024 025 [facility] (Laboratory), [address] [place], [address], 05/31/2024 17:13:52 uric acid, serum or plasma 2024 025 [facility] (Laboratory), [address] [place], [address], 05/31/2024 17:14:56 culture, urine 2024 025 [facility] (Laboratory), [address] [place], [address], 06/01/2024 07:10:04 TSH, serum or plasma 2024 025 [facility] (Laboratory), [address] [place], [address], 05/31/2024 17:13:53 vitamin B12 + folate, serum or blood [id number] (Laboratory), [address] [place], [address], 06/07/2024 07:54:17 iron + TIBC + ferritin, serum [id number] (Laboratory), [address] [place], [address], 06/07/2024 07:54:17 CBC w/ auto diff 2024 025 [facility] (Laboratory), [address] [place], [address], 05/31/2024 16:48:59 urinalysi s, dipstick 2024 025 , [address] [place], [address], 05/20/2024 16:20:32 culture, urine 2024 025 [facility] (Laboratory), [address] [place], [address], 05/21/2024 06:05:52 influenza virus A + B + SARS-CoV- 2 (COVID19) Ag panel, rapid IA, upper respirato ry specimen 2024 025 , [address] [place], [address], 05/20/2024 16:20:32 lipid panel, serum 2023 024 [facility] (Laboratory), [address] [place], [address], 07/14/2023 18:08:52 iron + TIBC + ferritin, serum [address] (Laboratory), [address] [place], [address], 07/22/2023 07:59:53 vitamin B12 + folate, serum or blood [address] (Laboratory), [address] [place], [address], 07/22/2023 08:00:23 hemoglobi n A1c + average glucose, QN, blood [address] (Laboratory), [address] [place], [address], 07/22/2023 08:00:07 vitamin D, 25-hydrox y, total, serum [address] (Laboratory), [address] [place], [address], 07/22/2023 07:59:38 urinalysi s, dipstick 2023 024 [facility], [address] [place], [address], 07/14/2023 16:26:30 CMP, serum or plasma 2023 024 [facility] (Laboratory), [address] [place], [address], 07/14/2023 18:08:51 CBC w/ auto diff 2023 024 [facility] (Laboratory), [address] [place], [address], 07/14/2023 17:16:28 TSH, serum or plasma 2023 024 [facility] (Laboratory), [address] [place], [address], 07/14/2023 18:08:48 uric acid, serum or plasma 2022 023 [facility] (Laboratory), [address] [place], [address], 02/03/2023 16:29:22 iron + TIBC + ferritin, serum 2022 023 [email or web address] (Laboratory), [address] [place], [address], 02/10/2023 08:09:31 vitamin B12 + folate, serum or blood [address] (Laboratory), [address] [place], [address], 02/10/2023 08:09:31 vitamin D, 25-hydrox y, total, serum [address] (Laboratory), [address] [place], [address], 02/10/2023 08:09:32 CMP, serum or plasma 2022 023 [facility] (Laboratory), [address] [place], [address], 02/03/2023 16:29:19 CBC w/ auto diff 2022 023 [facility] (Laboratory), [address] [place], [address], 02/03/2023 14:42:16 magnesium , serum or plasma 2022 023 [facility] (Laboratory), [address] [place], [address], 02/03/2023 16:29:20 Referral None recorded. Procedures None recorded. Surgeries None recorded. Imaging MAMMO, screening , digital, bilateral 2024 025 [facility] Centralized Scheduling, [address] [place], [address], 07/26/2024 15:01:22 LDCT, chest, for lung cancer screening 2024 025 [facility] Sched[facility], [address] [place], [address], 07/27/2024 11:53:31 DEXA 2023 024 [facility] Centralized Scheduling, [address] [place], [address], 08/18/2023 09:04:12 MAMMO, screening , digital, bilateral 2023 024 [facility] Sched[facility], [address] [place], [address], 07/29/2023 15:53:03 LDCT, chest, for lung cancer screening 2023 024 [facility] Sched[facility], [address] [place], [address], 07/29/2023 15:32:00 Medication Orders pramipexo le 0.5 mg tablet 2024 025 [facility] [id number], [address] [place] [address], [address], [address], 05/23/2024 07:45:43 Medrol (Bar) 4 mg tablets in a dose pack 2024 025 [facility] [id number], [address] [place] [address], [address], [place], [address], 05/31/2024 15:56:25 cefuroxim e axetil 250 mg tablet 2024 025 [facility] [id number], [address] [place] [address], [address], [place], [address], 05/31/2024 15:56:16 Mucinex DM 60 mg-1,200 mg tablet,ex tended release 12 hr 2023 025 [facility] [id number], [address] [place] [address], [address], [place], [address], 05/31/2024 15:56:[address] 10 mg tablet [email or web address] [place] [address] Pharmacy [id number], [address] [place] [address], [address], [place], [address], 07/15/2024 14:29:42 Patient TargetsNo targets recorded. Patient Instructions Encounter Date Encounter Id Patient Instructions Last Modified By Organization Details Last Modified Time 07/14/2023 [id number] Health Maintenance Recommendations: (5-10 year screening/prevent ion plan) andres Not available 07/14/2023 14:45:24 07/15/2024 [id number] Health Maintenance Recommendations: (5-10 year screening/prevent ion plan) marshall Not available 07/15/2024 14:18:23 Reason for Referral None Reported. Results Created Date Observation Date Name Description Value Unit Range Abnormal Flag Note LastModifiedBy Organization Detail LastModifiedTime 02/04/2002/03/2023 CBC AUTO W DIFF WBC 11.9 10 4.5-11 .5 high Not Available [facility] (Lab Registration) [address] [place], [address], 02/03/2023 14:42:16 02/04/2002/03/2023 CBC AUTO W DIFF RBC 4.00 10 4.25-5 .57 low Not Available [facility] (Lab Registration) [address] [place], [address], 02/03/2023 14:42:16 02/04/2002/03/2023 CBC AUTO W DIFF HGB 12.3 g/dL 12.0-1 5.7 Not Available [facility] (Lab Registration) [address] [place], [address], 02/03/2023 14:42:16 02/04/2002/03/2023 CBC AUTO W DIFF HCT 37.0 % 36.0-4 7.0 Not Available [facility] (Lab Registration) [address] [place], [address], 02/03/2023 14:42:16 02/04/2002/03/2023 CBC AUTO W DIFF MCV 92.5 fL 80-95 Not Available [facility] (Lab Registration) [address] [place], [address], 02/03/2023 14:42:16 02/04/2002/03/2023 CBC AUTO W DIFF MCH 30.8 pg 27.0-3 4.0 Not Available [facility] (Lab Registration) [address] [place], [address], 02/03/2023 14:42:16 02/04/2002/03/2023 CBC AUTO W DIFF MCHC 33.2 g/dL 32.0-3 6.0 Not Available [facility] (Lab Registration) [address] [place], [address], 02/03/2023 14:42:16 02/04/2002/03/2023 CBC AUTO W DIFF platelet count 277 10 150-45 0 Not Available [facility] (Lab Registration) [address] [place], [address], 02/03/2023 14:42:16 02/04/2002/03/2023 CBC AUTO W DIFF RDW 13.8 % 12.3-1 5.1 Not Available [facility] (Lab Registration) [address] [place], [address], 02/03/2023 14:42:16 02/04/2002/03/2023 CBC AUTO W DIFF MPV 11.1 fL 7.4-10 .4 high Not Available [facility] (Lab Registration) [address] [place], [address], 02/03/2023 14:42:16 02/04/2002/03/2023 CBC AUTO W DIFF granulocyte% 71.1 % 40-75 Not Available [facility] (Lab Registration) [address] [place], [address], 02/03/2023 14:42:16 02/04/2002/03/2023 CBC AUTO W DIFF lymphocyte% 19.4 % 15-57 Not Available [facility] (Lab Registration) [address] [place], [address], 02/03/2023 14:42:16 02/04/2002/03/2023 CBC AUTO W DIFF monocyte% 6.9 % 4.0-12 .0 Not Available [facility] (Lab Registration) [address] [place], [address], 02/03/2023 14:42:16 02/04/2002/03/2023 CBC AUTO W DIFF eosinophil% 1.7 % 0.0-4. 0 Not Available [facility] (Lab Registration) [address], [place], [address], 02/03/2023 14:42:16 02/04/2002/03/2023 CBC AUTO W DIFF basophil% 0.6 % 0.0-1. 0 Not Available [facility] (Lab Registration) [address] [place], [address], 02/03/2023 14:42:16 02/04/2002/03/2023 CBC AUTO W DIFF immature granulocytes % 0.3 % 0.0-0. 8 Not Available [facility] (Lab Registration) [address] [place], [address], 02/03/2023 14:42:16 02/04/2002/03/2023 CBC AUTO W DIFF granulocyte# 8.49 10 Not Available [facility] (Lab Registration) [address] [place], [address], 02/03/2023 14:42:16 02/04/2002/03/2023 CBC AUTO W DIFF lymphocyte# 2.32 10 Not Available [facility] (Lab Registration) [address] [place], [address], 02/03/2023 14:42:16 02/04/2002/03/2023 CBC AUTO W DIFF monocyte# 0.82 10 Not Available [facility] (Lab Registration) [address] [place], [address], 02/03/2023 14:42:16 02/04/2002/03/2023 CBC AUTO W DIFF eosinophil# 0.20 10 Not Available [facility] (Lab Registration) [address], [place], [address], 02/03/2023 14:42:16 02/04/2002/03/2023 CBC AUTO W DIFF basophil# 0.07 10 Not Available [facility] (Lab Registration) [address] [place], [address], 02/03/2023 14:42:16 02/04/2002/03/2023 CBC AUTO W DIFF immature granulocytes # 0.03 10 Not Available [facility] (Lab Registration) [address] [place], [address], 02/03/2023 14:42:16 02/04/2002/03/2023 CBC AUTO W DIFF manual differential NO Not Available [facility] (Lab Registration) [address] [place], [address], 02/03/2023 14:42:16 02/04/2002/03/2023 CBC AUTO W DIFF note Unles s other catherine noted testi ng perfo rmed at: [facility] [address] [place] [address] [phone] Vinicio lerner MD CLIA: [id number] Not Available [facility] (Lab Registration) [address] [place], [address], 02/03/2023 14:42:16 02/04/2002/03/2023 IRON/ TIBC/ %SAT (IRON STUDI ES) iron 43 ug/dL 35-150 Not Available [facility] (Lab Registration) [address] [place], [address], 02/03/2023 15:15:28 02/04/2002/03/2023 IRON/ TIBC/ %SAT (IRON STUDI ES) total iron bind cap (TIBC) 308 ug/dL 250-45 0 Not Available [facility] (Lab Registration) [address] [place], [address], 02/03/2023 15:15:28 02/04/20 23 02/03/2023 IRON/ TIBC/ %SAT (IRON STUDI ES) % saturation 14 % 15-55 low Not Available [facility] (Lab Registration) [address], [place], [address], 02/03/2023 15:15:28 02/04/20 23 02/03/2023 IRON/ TIBC/ %SAT (IRON STUDI ES) note Unles s other cathreine noted testi ng perfo rmed at: [facility] [address] [place] [address] [phone] Vinicio lerner MD CLIA: [id number] Not Available [facility] (Lab Registration) [address] [place], [address], 02/03/2023 15:15:28 02/04/20 23 02/03/2023 COMP METAB OLIC PANEL sodium 138 mmol/ L 136-14 5 Not Available [facility] (Lab Registration) [address], [place], [address], 02/03/2023 16:29:18 02/04/20 23 02/03/2023 COMP METAB OLIC PANEL potassium 4.5 mmol/ L 3.5-5. 1 Not Available [facility] (Lab Registration) [address] [place], [address], 02/03/2023 16:29:18 02/04/20 23 02/03/2023 COMP METAB OLIC PANEL chloride 103 mmol/ L 98-107 Not Available [facility] (Lab Registration) [address] [place], [address], 02/03/2023 16:29:18 02/04/20 23 02/03/2023 COMP METAB OLIC PANEL carbon dioxide 25 mmol/ L 21-32 Not Available [facility] (Lab Registration) [address], [place], [address], 02/03/2023 16:29:18 02/04/2002/03/2023 COMP METAB OLIC PANEL anion gap 10.0 Not Available [facility] (Lab Registration) [address] [place], [address], 02/03/2023 16:29:18 02/04/2002/03/2023 COMP METAB OLIC PANEL glucose 119 mg/dL 70-110 high Not Available [facility] (Lab Registration) [address] [place], [address], 02/03/2023 16:29:18 02/04/20 23 02/03/2023 COMP METAB OLIC PANEL blood urea nitrogen 24 mg/dL 7-18 high Not Available [facility] (Lab Registration) [address] [place], [address], 02/03/2023 16:29:18 02/04/20 23 02/03/2023 COMP METAB OLIC PANEL creatinine 1.8 mg/dL 0.6-1. 0 high Not Available [facility] (Lab Registration) [address] [place], [address], 02/03/2023 16:29:18 02/04/20 23 02/03/2023 COMP METAB OLIC PANEL BUN/creatini ne ratio 13.3 ratio 9-21 Not Available [facility] (Lab Registration) [address] [place], [address], 02/03/2023 16:29:18 02/04/2002/03/2023 COMP METAB OLIC PANEL estimated glom filtration rate 29 mL/mi n >60- low Not Available [facility] (Lab Registration) [address] [place], [address], 02/03/2023 16:29:18 02/04/20 23 02/03/2023 COMP METAB OLIC PANEL total protein 7.6 g/dL 6.4-8. 2 Not Available [facility] (Lab Registration) [address] [place], [address], 02/03/2023 16:29:18 02/04/20 23 02/03/2023 COMP METAB OLIC PANEL albumin 3.9 g/dL 3.4-5. 0 Not Available [facility] (Lab Registration) [address] [place], [address], 02/03/2023 16:29:18 02/04/20 23 02/03/2023 COMP METAB OLIC PANEL calcium 9.8 mg/dL 8.5-10 .1 Not Available [facility] (Lab Registration) [address] [place], [address], 02/03/2023 16:29:18 02/04/20 23 02/03/2023 COMP METAB OLIC PANEL corrected calcium 9.9 mg/dL 8.5-10 .1 Not Available [facility] (Lab Registration) [address] [place], [address], 02/03/2023 16:29:18 02/04/20 23 02/03/2023 COMP METAB OLIC PANEL bilirubin total 0.3 mg/dL 0.4-1. 5 low Not Available [facility] (Lab Registration) [address] [place], [address], 02/03/2023 16:29:18 02/04/2002/03/2023 COMP METAB OLIC PANEL AST (SGOT) 15 U/L 15-37 Not Available [facility] (Lab Registration) [address] [place], [address], 02/03/2023 16:29:18 02/04/2002/03/2023 COMP METAB OLIC PANEL ALT (SGPT) 27 U/L 12-78 Not Available [facility] (Lab Registration) [address] [place], [address], 02/03/2023 16:29:18 02/04/20 02/03/2023 COMP METAB OLIC PANEL alk phosphatase 110 U/L 53-141 Not Available [facility] (Lab Registration) [address], [place], [address], 02/03/2023 16:29:18 02/04/20 23 02/03/2023 COMP METAB OLIC PANEL note Unles s other catherine noted testi ng perfo rmed at: [facility] [address] [place] [address] [phone] Vinicio lerner MD CLIA: [id number] Not Available [facility] (Lab Registration) [address], [place], [address], 02/03/2023 16:29:18 02/04/20 23 02/03/2023 MAGNE SIUM magnesium 2.0 mg/dL 1.8-2. 4 Not Available [facility] (Lab Registration) [address], [place], [address], 02/03/2023 16:29:20 02/04/2002/03/2023 MAGNE SIUM note Nisa s other catherine noted testi ng perfo rmed at: [facility] [address] [place] [address] [phone] Vinicio lerner MD CLIA: [id number] Not Available [facility] (Lab Registration) [address], [place], [address], 02/03/2023 16:29:20 02/04/20 23 02/03/2023 URIC ACID uric acid 6.8 mg/dL 2.2-7. 7 Not Available [facility] (Lab Registration) [address], [place], [address], 02/03/2023 16:29:22 02/04/20 23 02/03/2023 URIC ACID note Unles s other catherine noted testi ng perfo rmed at: [facility] [address] [place] [address] [phone] Vinicio lerner MD CLIA: [id number] Not Available [facility] (Lab Registration) [address], [place], [address], 02/03/2023 16:29:22 02/04/20 23 02/03/2023 NATHALY TIN ferritin 166 NG/mL 8-388 Not Available [facility] (Lab Registration) [address], [place], [address], 02/03/2023 16:29:24 02/04/20 23 02/03/2023 NATHALY TIN note Unles s other catherine noted testi ng perfo rmed at: [facility] [address] [place] [address] [phone] Vinicio lerner MD CLIA: [id number] Not Available [facility] (Lab Registration) [address], [place], [address], 02/03/2023 16:29:24 02/04/20 23 02/03/2023 VITAM IN B12 vitamin B12 694 pg/mL 193-98 6 Not Available [facility] (Lab Registration) [address] [place], [address], 02/03/2023 16:29:25 02/04/20 23 02/03/2023 VITAM IN B12 folate (folic acid), serum 32.3 NG/mL 8.6-58 .9 Not Available [facility] (Lab Registration) [address] [place], [address], 02/03/2023 16:29:25 02/04/20 23 02/03/2023 VITAM IN B12 note Unles s other catherine noted testi ng perfo rmed at: [facility] [address] [place] [address] [phone] Vinicio lerner MD CLIA: [id number] Not Available [facility] (Lab Registration) [address] [place], [address], 02/03/2023 16:29:25 02/04/20 23 02/03/2023 VITAM IN D TOTAL (D2+D 3) vitamin D25 (D2+D3) 75.6 NG/mL 30-100 Not Available [facility] (Lab Registration) [address] [place], [address], 02/03/2023 16:29:25 02/04/20 23 02/03/2023 VITAM IN D TOTAL (D2+D 3) note Unles s other catherine noted testi ng perfo rmed at: [facility] [address] [facility] [place] [address] [phone] Vinicio lerner MD CLIA: [id number] Not Available [facility] (Lab Registration) [address], [place], [address], 02/03/2023 16:29:25 07/14/19 24 07/14/2023 CBC AUTO W DIFF WBC 11.4 10 4.5-11 .5 Not Available [facility] (Lab Registration) [address] [place], [address], 07/14/2023 17:16:28 07/14/19 24 07/14/2023 CBC AUTO W DIFF RBC 4.29 10 4.25-5 .57 Not Available [facility] (Lab Registration) [address] [place], [address], 07/14/2023 17:16:28 07/14/19 24 07/14/2023 CBC AUTO W DIFF HGB 12.6 g/dL 12.0-1 5.7 Not Available [facility] (Lab Registration) [address] [place], [address], 07/14/2023 17:16:28 07/14/19 24 07/14/2023 CBC AUTO W DIFF HCT 37.9 % 36.0-4 7.0 Not Available [facility] (Lab Registration) [address] [place], [address], 07/14/2023 17:16:28 07/14/19 24 07/14/2023 CBC AUTO W DIFF MCV 88.3 fL 80-95 Not Available [facility] (Lab Registration) [address] [place], [address], 07/14/2023 17:16:28 07/14/19 24 07/14/2023 CBC AUTO W DIFF MCH 29.4 pg 27.0-3 4.0 Not Available [facility] (Lab Registration) [address] [place], [address], 07/14/2023 17:16:28 07/14/19 24 07/14/2023 CBC AUTO W DIFF MCHC 33.2 g/dL 32.0-3 6.0 Not Available [facility] (Lab Registration) [address] [place], [address], 07/14/2023 17:16:28 07/14/19 24 07/14/2023 CBC AUTO W DIFF platelet count 233 10 150-45 0 Not Available [facility] (Lab Registration) [address] [place], [address], 07/14/2023 17:16:28 07/14/19 24 07/14/2023 CBC AUTO W DIFF RDW 14.6 % 12.3-1 5.1 Not Available [facility] (Lab Registration) [address] [place], [address], 07/14/2023 17:16:28 07/14/19 24 07/14/2023 CBC AUTO W DIFF MPV 11.8 fL 7.4-10 .4 high Not Available [facility] (Lab Registration) [address] [place], [address], 07/14/2023 17:16:28 07/14/19 24 07/14/2023 CBC AUTO W DIFF granulocyte% 65.8 % 40-75 Not Available [facility] (Lab Registration) [address] [place], [address], 07/14/2023 17:16:28 07/14/19 24 07/14/2023 CBC AUTO W DIFF lymphocyte% 22.7 % 15-57 Not Available [facility] (Lab Registration) [address] [place], [address], 07/14/2023 17:16:28 07/14/19 24 07/14/2023 CBC AUTO W DIFF monocyte% 8.8 % 4.0-12 .0 Not Available [facility] (Lab Registration) [address] [place], [address], 07/14/2023 17:16:28 07/14/19 24 07/14/2023 CBC AUTO W DIFF eosinophil% 2.0 % 0.0-4. 0 Not Available [facility] (Lab Registration) [address] [place], [address], 07/14/2023 17:16:28 07/14/19 24 07/14/2023 CBC AUTO W DIFF basophil% 0.4 % 0.0-1. 0 Not Available [facility] (Lab Registration) [address] [place], [address], 07/14/2023 17:16:28 07/14/19 24 07/14/2023 CBC AUTO W DIFF immature granulocytes % 0.3 % 0.0-0. 8 Not Available [facility] (Lab Registration) [address] [place], [address], 07/14/2023 17:16:28 07/14/19 24 07/14/2023 CBC AUTO W DIFF granulocyte# 7.47 10 Not Available [facility] (Lab Registration) [address] [place], [address], 07/14/2023 17:16:28 07/14/19 24 07/14/2023 CBC AUTO W DIFF lymphocyte# 2.58 10 Not Available [facility] (Lab Registration) [address] [place], [address], 07/14/2023 17:16:28 07/14/19 24 07/14/2023 CBC AUTO W DIFF monocyte# 1.00 10 Not Available [facility] (Lab Registration) [address] [place], [address], 07/14/2023 17:16:28 07/14/19 24 07/14/2023 CBC AUTO W DIFF eosinophil# 0.23 10 Not Available [facility] (Lab Registration) [address] [place], [address], 07/14/2023 17:16:28 07/14/19 24 07/14/2023 CBC AUTO W DIFF basophil# 0.04 10 Not Available [facility] (Lab Registration) [address] [place], [address], 07/14/2023 17:16:28 07/14/19 24 07/14/2023 CBC AUTO W DIFF immature granulocytes # 0.03 10 Not Available [facility] (Lab Registration) [address] [place], [address], 07/14/2023 17:16:28 07/14/19 24 07/14/2023 CBC AUTO W DIFF manual differential NO Not Available [facility] (Lab Registration) [address] [place], [address], 07/14/2023 17:16:28 07/14/19 24 07/14/2023 CBC AUTO W DIFF note Unles s other catherine noted testi ng perfo rmed at: [facility] [address] [place] [address] [phone] Vinicio lerner MD CLIA: [id number] Not Available [facility] (Lab Registration) [address] [place], [address], 07/14/2023 17:16:28 07/14/19 24 07/14/2023 HEMOG LOBIN A1C glycosylated hemoglobin A1C 5.7 % 4.5-6. 2 Not Available [facility] (Lab Registration) [address], [place], [address], 07/14/2023 17:48:23 07/14/19 24 07/14/2023 HEMOG LOBIN A1C estimated average glucose 117 mg/dL 82-131 Not Available [facility] (Lab Registration) [address], [address], 07/14/2023 17:48:23 07/14/19 24 07/14/2023 HEMOG LOBIN A1C note Nisa lerner other catherine noted testi ng perfo rmed at: [facility] [address] [place] [address] [phone] Vinicio lerner MD CLIA: [id number] Not Available [facility] (Lab Registration) [address] [place], [address], 07/14/2023 17:48:23 07/14/19 24 07/14/2023 THYRO ID STIMU LATIN G HORMO NE thyroid stimulating hormone 1.26 mIU/m L 0.34-4 .80 Not Available [facility] (Lab Registration) [address] [place], [address], 07/14/2023 18:08:48 07/14/19 24 07/14/2023 THYRO ID STIMU LATIN G HORMO NE note Nisa lerner other catherine noted testi ng perfo rmed at: [facility] [address] [place] [address] [phone] Vinicio lerner MD CLIA: [id number] Not Available [facility] (Lab Registration) [address] [place], [address], 07/14/2023 18:08:48 07/14/19 24 07/14/2023 VITAM IN D TOTAL (D2+D 3) vitamin D25 (D2+D3) 79.8 NG/mL 30-100 Not Available [facility] (Lab Registration) [address] [place], [address], 07/14/2023 18:08:50 07/14/19 24 07/14/2023 VITAM IN D TOTAL (D2+D 3) note Unles s other catherine noted testi ng perfo rmed at: [facility] [place] [address] [phone] Vinicio lerner MD CLIA: [id number] Not Available [facility] (Lab Registration) [address] [place], [address], 07/14/2023 18:08:50 07/14/19 24 07/14/2023 COMP METAB OLIC PANEL sodium 138 mmol/ L 136-14 5 Not Available [facility] (Lab Registration) [address] [place], [address], 07/14/2023 18:08:51 07/14/19 24 07/14/2023 COMP METAB OLIC PANEL potassium 5.5 mmol/ L 3.5-5. 1 high Not Available [facility] (Lab Registration) [address] [place], [address], 07/14/2023 18:08:51 07/14/19 24 07/14/2023 COMP METAB OLIC PANEL chloride 99 mmol/ L 98-107 Not Available [facility] (Lab Registration) [address] [place], [address], 07/14/2023 18:08:51 07/14/19 24 07/14/2023 COMP METAB OLIC PANEL carbon dioxide 28 mmol/ L 21-32 Not Available [facility] (Lab Registration) [address] [place], [address], 07/14/2023 18:08:51 07/14/19 24 07/14/2023 COMP METAB OLIC PANEL anion gap 11.0 Not Available [facility] (Lab Registration) [address] [place], [address], 07/14/2023 18:08:51 07/14/19 24 07/14/2023 COMP METAB OLIC PANEL glucose 104 mg/dL 70-110 Not Available [facility] (Lab Registration) [address] [place], [address], 07/14/2023 18:08:51 07/14/19 24 07/14/2023 COMP METAB OLIC PANEL blood urea nitrogen 31 mg/dL 7-18 high Not Available [facility] (Lab Registration) [address] [place], [address], 07/14/2023 18:08:51 07/14/19 24 07/14/2023 COMP METAB OLIC PANEL creatinine 1.9 mg/dL 0.6-1. 0 high Not Available [facility] (Lab Registration) [address] [place], [address], 07/14/2023 18:08:51 07/14/19 24 07/14/2023 COMP METAB OLIC PANEL BUN/creatini ne ratio 16.3 ratio 9-21 Not Available [facility] (Lab Registration) [address] [place], [address], 07/14/2023 18:08:51 07/14/19 24 07/14/2023 COMP METAB OLIC PANEL estimated glom filtration rate 28 mL/mi n >60- low Not Available [facility] (Lab Registration) [address] [place], [address], 07/14/2023 18:08:51 07/14/19 24 07/14/2023 COMP METAB OLIC PANEL total protein 7.8 g/dL 6.4-8. 2 Not Available [facility] (Lab Registration) [address] [place], [address], 07/14/2023 18:08:51 07/14/19 24 07/14/2023 COMP METAB OLIC PANEL albumin 4.1 g/dL 3.4-5. 0 Not Available [facility] (Lab Registration) [address] [place], [address], 07/14/2023 18:08:51 07/14/19 24 07/14/2023 COMP METAB OLIC PANEL calcium 9.9 mg/dL 8.5-10 .1 Not Available [facility] (Lab Registration) [address] [place], [address], 07/14/2023 18:08:51 07/14/19 24 07/14/2023 COMP METAB OLIC PANEL corrected calcium 9.8 mg/dL 8.5-10 .1 Not Available [facility] (Lab Registration) [address] [place], [address], 07/14/2023 18:08:51 07/14/19 24 07/14/2023 COMP METAB OLIC PANEL bilirubin total 0.5 mg/dL 0.4-1. 5 Not Available [facility] (Lab Registration) [address] [place], [address], 07/14/2023 18:08:51 07/14/19 24 07/14/2023 COMP METAB OLIC PANEL AST (SGOT) 16 U/L 15-37 Not Available [facility] (Lab Registration) [address] [place], [address], 07/14/2023 18:08:51 07/14/19 24 07/14/2023 COMP METAB OLIC PANEL ALT (SGPT) 22 U/L 12-78 Not Available [facility] (Lab Registration) [address] [place], [address], 07/14/2023 18:08:51 07/14/19 24 07/14/2023 COMP METAB OLIC PANEL alk phosphatase 103 U/L 53-141 Not Available [facility] (Lab Registration) [address] [place], [address], 07/14/2023 18:08:51 07/14/19 24 07/14/2023 COMP METAB OLIC PANEL note Unles s other catherine noted testi ng perfo rmed at: [facility] [address] [place] [address] [phone] Vinicio lerner MD CLIA: [id number] Not Available [facility] (Lab Registration) [address], [place], [address], 07/14/2023 18:08:51 07/14/19 24 07/14/2023 LIPID PANEL triglyceride 310 mg/dL 20-200 high The [employer]io n[employer] (NCEP ) has set the follo wing guide lines for Fasti ng Trigl yceri jena: BRUCE L: <150 mg/dL BORDE RLINE HIGH: 150 - 199 mg/dL HIGH: 200 - 499 mg/dL VERY HIGH: > or =500 mg/dL Not Available [facility] (Lab Registration) [address], [place], [address], 07/14/2023 18:08:52 07/14/19 24 07/14/2023 LIPID PANEL cholesterol 197 mg/dL 0-200 The [employer]io n[employer] (NCEP ) has set the follo wing guide lines for Fasti ng Michela stero l: KHRIS ABLE: <200 mg/dL BORDE RLINE HIGH: 200 - 239 mg/dL HIGH: > or =240 mg/dL Not Available [facility] (Lab Registration) [address], [place], [address], 07/14/2023 18:08:52 07/14/19 24 07/14/2023 LIPID PANEL HDL cholesterol 43 mg/dL 60- low The [employer] n[employer] (NCEP ) has set the follo wing guide lines for Fasti ng HDL Michela stero l: LOW HDL: <40 mg/dL BRUCE L: 40 - 60 mg/dL KHRIS ABLE: >60 mg/dL Not Available [facility] (Lab Registration) [address], [place], [address], 07/14/2023 18:08:52 07/14/19 24 07/14/2023 LIPID PANEL LDL calculated 92 mg/dL 100- low The [employer] (NCEP ) has set the follo wing guide lines for Fasti ng LDL Michela stero l: OPTIM AL: < 100 mg/dL LOW RISK: 100 - 129 mg/dL BORDE RLINE HIGH: 130 - 159 mg/dL HIGH: 160 - 189 mg/dL VERY HIGH: > or = 190 mg/dL Not Available [facility] (Lab Registration) [address], [place], [address], 07/14/2023 18:08:52 07/14/19 24 07/14/2023 LIPID PANEL chol/HDL ratio 5 ratio -5 Not Available [facility] (Lab Registration) [address] [place], [address], 07/14/2023 18:08:52 07/14/19 24 07/14/2023 LIPID PANEL note Nisa s other catherine noted testi ng perfo rmed at: [facility] [address] [place] [address] [phone] Vinicio lerner MD CLIA: [id number] Not Available [facility] (Lab Registration) [address] [place], [address], 07/14/2023 18:08:52 07/14/19 24 07/14/2023 NATHALY TIN ferritin 169 NG/mL 8-388 Not Available [facility] (Lab Registration) [address] [place], [address], 07/14/2023 18:08:54 07/14/19 24 07/14/2023 NATHALY TIN note Nisa s other catherine noted testi ng perfo rmed at: [facility] [address] [place] [address] [phone] Vinicio lerner MD CLIA: [id number] Not Available [facility] (Lab Registration) [address] [place], [address], 07/14/2023 18:08:54 07/14/19 24 07/14/2023 VITAM IN B12 vitamin B12 847 pg/mL 193-98 6 Not Available [facility] (Lab Registration) [address] [place], [address], 07/14/2023 18:08:56 07/14/19 24 07/14/2023 VITAM IN B12 folate (folic acid), serum 62.1 NG/mL 8.6-58 .9 high Not Available [facility] (Lab Registration) [address] [place], [address], 07/14/2023 18:08:56 07/14/19 24 07/14/2023 VITAM IN B12 note Unles s other catherine noted testi ng perfo rmed at: [facility] [address] [place] [address] [phone] Vinicio lerner MD CLIA: [id number] Not Available [facility] (Lab Registration) [address] [place], [address], 07/14/2023 18:08:56 07/14/19 24 07/14/2023 IRON/ TIBC/ %SAT (IRON STUDI ES) iron 65 ug/dL 35-150 Not Available [facility] (Lab Registration) [address] [place], [address], 07/14/2023 18:08:56 07/14/19 24 07/14/2023 IRON/ TIBC/ %SAT (IRON STUDI ES) total iron bind cap (TIBC) 317 ug/dL 250-45 0 Not Available [facility] (Lab Registration) [address] [place], [address], 07/14/2023 18:08:56 07/14/19 24 07/14/2023 IRON/ TIBC/ %SAT (IRON STUDI ES) % saturation 21 % 15-55 Not Available [facility] (Lab Registration) [address] [place], [address], 07/14/2023 18:08:56 07/14/19 24 07/14/2023 IRON/ TIBC/ %SAT (IRON STUDI ES) note Unles s other catherine noted testi ng perfo [facility]med at: [facility] [address] [place] [address] [phone] Vinicio lerner MD CLIA: [id number] Not Available [facility] (Lab Registration) [address] [place], [address], 07/14/2023 18:08:56 07/14/19 24 07/14/2023 urina lysis , dipst ick Leukocytes (reference range) negati ve Not Available [address] [place], [address], 07/14/2023 14:56:06 07/14/19 24 07/14/2023 urina lysis , dipst ick Nitrite (reference range:) negati ve Not Available [address] [place], [address], 07/14/2023 14:56:06 07/14/19 24 07/14/2023 urina lysis , dipst ick Urobilinogen (reference range) 0.2 Not Available [address] [place], [address], 07/14/2023 14:56:06 07/14/19 24 07/14/2023 urina lysis , dipst ick Protein (reference range) negati ve Not Available [facility] [address] [place], [address], 07/14/2023 14:56:06 07/14/19 24 07/14/2023 urina lysis , dipst ick pH (reference range 5-8.5) 7.0 Not Available [address] [place], [address], 07/14/2023 14:56:06 07/14/19 24 07/14/2023 urina lysis , dipst ick Blood (reference range:) negati ve Not Available [address] [place], [address], 07/14/2023 14:56:06 07/14/19 24 07/14/2023 urina lysis , dipst ick Specific [place] (reference range) 1.010 Not Available [address] [place], [address], 07/14/2023 14:56:06 07/14/19 24 07/14/2023 urina lysis , dipst ick Ketone (reference range) negati ve Not Available [address] [place], [address], 07/14/2023 14:56:06 07/14/19 24 07/14/2023 urina lysis , dipst ick Bilirubin (reference range) negati ve Not Available [address] [place], [address], 07/14/2023 14:56:06 07/14/19 24 07/14/2023 urina lysis , dipst ick Glucose (reference range) negati ve Not Available [address] [place], [address], 07/14/2023 14:56:06 07/14/19 24 07/14/2023 urina lysis , dipst ick Color (reference range: yellow-brown ) Yellow Not Available [address] [place] [place], [address], 07/14/2023 14:56:06 05/20/19 25 05/20/2024 CULTU RE URINE results [facility] 05-21 602 >100, 000 COL/M L Gram Negat yoni Rods Not Available [facility] (Lab Registration) [address], [place], [address], 05/21/2024 06:05:52 05/20/19 25 05/20/2024 CULTU RE URINE note Unles s other catherine noted testi ng perfo rmed at: [facility] [address] [place] [address] [phone] Vinicio lerner MD CLIA: [id number] Not Available [facility] (Lab Registration) [address], [place], [address], 05/21/2024 06:05:52 05/20/19 25 05/20/2024 CULTU RE URINE culccur ===== ===== ===== ===== ===== ===== ===== ===== ===== ===== ===== ===== ===== ===== ===== ===== ===== ===== ===== ===== ===== ===== ===== ===== Speci men NO.: [id number] Exam Statu s: Final Proce dure: CULTU RE URINE ===== ===== ===== ===== ===== ===== ===== ===== ===== ===== ===== ===== ===== ===== ===== ===== ===== ===== ===== ===== ===== ===== ===== ===== Iso/R esult : 01 Esche fili a coli Antim icrob ic/Do se KALANI Syste kalani Urine __ ___ ___ Aztre onam <2 S Cipro floxa delmar <0.25 S ESBL NEG N Levof loxac in <=0.5 S Merop enem <0.5 S Tetra cycli ne <=2 S Amika delmar <=8 S Ampic illin <4 S Amp/S ulbac madden 2/1 S Cefep lillie <=1 S Cefta zidim e <2 S Ceftr iaxon e <=1 S Ertap enem <0.25 S Genta micin <2 S Nitro furan toin <=16 S Piper acill in/Ta zo <2/4 S Tobra mycin <2 S Trime th/Rosas lfa <=0.5 A Sensi tivit y Requi red? YES [facility] 05-21 602 >100, 000 COL/M L Gram Negat yoni Rods Not Available [facility] (Lab Registration) [address] [place], [address], 05/23/2024 06:34:13 05/20/19 25 05/20/2024 CULTU RE URINE note Unles s other catherine noted testi ng perfo rmed at: [facility] [address] [place] [address] [phone] Vinicio lerner MD CLIA: [id number] Not Available [facility] (Lab Registration) [address] [place], [address], 05/23/2024 06:34:13 05/20/19 25 05/20/2024 urina lysis , dipst ick Leukocytes (reference range) modera te Not Available [facility] [address] [place], [address], 05/20/2024 14:39:07 05/20/19 25 05/20/2024 urina lysis , dipst ick Nitrite (reference range:) negati ve Not Available [address] [place], [address], 05/20/2024 14:39:07 05/20/19 25 05/20/2024 urina lysis , dipst ick Urobilinogen (reference range) 0.2 Not Available [address] [place], [address], 05/20/2024 14:39:07 05/20/19 25 05/20/2024 urina lysis , dipst ick Protein (reference range) negati ve Not Available [address] [place], [address], 05/20/2024 14:39:07 05/20/19 25 05/20/2024 urina lysis , dipst ick pH (reference range 5-8.5) 5.5 Not Available [address] [place], [address], 05/20/2024 14:39:07 05/20/19 25 05/20/2024 urina lysis , dipst ick Blood (reference range:) non-He molyze d: Trace Not Available [address] [place], [address], 05/20/2024 14:39:07 05/20/19 25 05/20/2024 urina lysis , dipst ick Specific [place] (reference range) 1.005 Not Available [address] [place], [address], 05/20/2024 14:39:07 05/20/19 25 05/20/2024 urina lysis , dipst ick Ketone (reference range) negati ve Not Available [address] [place], [address], 05/20/2024 14:39:07 05/20/19 25 05/20/2024 urina lysis , dipst ick Bilirubin (reference range) negati ve Not Available [address] [place], [address], 05/20/2024 14:39:07 05/20/19 25 05/20/2024 urina lysis , dipst ick Glucose (reference range) 500 Not Available [address] [place], [address], 05/20/2024 14:39:07 05/20/19 25 05/20/2024 urina lysis , dipst ick Color (reference range: yellow-brown ) Dark Yellow Not Available [address] [place], [address], 05/20/2024 14:39:07 05/20/19 25 05/20/2024 influ fili virus A + B + SARS- CoV-2 (COVI D19) Ag panel , rapid IA, upper respi rator y speci men FLU A negati ve Not Available [address] [place], [address], 05/20/2024 14:37:15 05/20/19 25 05/20/2024 influ fili virus A + B + SARS- CoV-2 (COVI D19) Ag panel , rapid IA, upper respi rator y speci men FLU B negati ve Not Available [address] [place], [address], 05/20/2024 14:37:15 05/20/19 25 05/20/2024 influ fili virus A + B + SARS- CoV-2 (COVI D19) Ag panel , rapid IA, upper respi rator y speci men SARS COV + SARS OV 2 negati ve Not Available [address] [place], [address], 05/20/2024 14:37:15 05/31/19 25 05/31/2024 CBC AUTO W DIFF WBC 12.5 10 4.5-11 .5 high Not Available [facility] (Lab Registration) [address] [place], [address], 05/31/2024 16:34:55 05/31/19 25 05/31/2024 CBC AUTO W DIFF RBC 4.59 10 4.25-5 .57 Not Available [facility] (Lab Registration) [address] [place], [address], 05/31/2024 16:34:55 05/31/19 25 05/31/2024 CBC AUTO W DIFF HGB 13.7 g/dL 12.0-1 5.7 Not Available [facility] (Lab Registration) [address] [place], [address], 05/31/2024 16:34:55 05/31/19 25 05/31/2024 CBC AUTO W DIFF HCT 41.4 % 36.0-4 7.0 Not Available [facility] (Lab Registration) [address] [place], [address], 05/31/2024 16:34:55 05/31/19 25 05/31/2024 CBC AUTO W DIFF MCV 90.2 fL 80-95 Not Available [facility] (Lab Registration) [address] [place], [address], 05/31/2024 16:34:55 05/31/19 25 05/31/2024 CBC AUTO W DIFF MCH 29.8 pg 27.0-3 4.0 Not Available [facility] (Lab Registration) [address] [place], [address], 05/31/2024 16:34:55 05/31/19 25 05/31/2024 CBC AUTO W DIFF MCHC 33.1 g/dL 32.0-3 6.0 Not Available [facility] (Lab Registration) [address] [place], [address], 05/31/2024 16:34:55 05/31/19 25 05/31/2024 CBC AUTO W DIFF platelet count 252 10 150-45 0 Not Available [facility] (Lab Registration) [address] [place], [address], 05/31/2024 16:34:55 05/31/19 25 05/31/2024 CBC AUTO W DIFF RDW 14.5 % 12.3-1 5.1 Not Available [facility] (Lab Registration) [address] [place], [address], 05/31/2024 16:34:55 05/31/19 25 05/31/2024 CBC AUTO W DIFF MPV 9.5 fL 7.4-10 .4 Not Available [facility] (Lab Registration) [address] [place], [address], 05/31/2024 16:34:55 05/31/19 25 05/31/2024 CBC AUTO W DIFF granulocyte% 65.5 % 40-75 Not Available [facility] (Lab Registration) [address] [place], [address], 05/31/2024 16:34:55 05/31/19 25 05/31/2024 CBC AUTO W DIFF lymphocyte% 24.1 % 15-57 Not Available [facility] (Lab Registration) [address] [place], [address], 05/31/2024 16:34:55 05/31/19 25 05/31/2024 CBC AUTO W DIFF monocyte% 8.7 % 4.0-12 .0 Not Available [facility] (Lab Registration) [address] [place], [address], 05/31/2024 16:34:55 05/31/19 25 05/31/2024 CBC AUTO W DIFF eosinophil% 1.2 % 0.0-4. 0 Not Available [facility] (Lab Registration) [address] [place], [address], 05/31/2024 16:34:55 05/31/19 25 05/31/2024 CBC AUTO W DIFF basophil% 0.2 % 0.0-1. 0 Not Available [facility] (Lab Registration) [address] [place], [address], 05/31/2024 16:34:55 05/31/19 25 05/31/2024 CBC AUTO W DIFF immature granulocytes % 0.3 % 0.0-0. 8 Not Available [facility] (Lab Registration) [address] [place], [address], 05/31/2024 16:34:55 05/31/19 25 05/31/2024 CBC AUTO W DIFF granulocyte# 8.15 10 Not Available [facility] (Lab Registration) [address] [place], [address], 05/31/2024 16:34:55 05/31/19 25 05/31/2024 CBC AUTO W DIFF lymphocyte# 3.01 10 Not Available [facility] (Lab Registration) [address] [place], [address], 05/31/2024 16:34:55 05/31/19 25 05/31/2024 CBC AUTO W DIFF monocyte# 1.09 10 Not Available [facility] (Lab Registration) [address] [place], [address], 05/31/2024 16:34:55 05/31/19 25 05/31/2024 CBC AUTO W DIFF eosinophil# 0.15 10 Not Available [facility] (Lab Registration) [address] [place], [address], 05/31/2024 16:34:55 05/31/19 25 05/31/2024 CBC AUTO W DIFF basophil# 0.03 10 Not Available [facility] (Lab Registration) [address] [place], [address], 05/31/2024 16:34:55 05/31/19 25 05/31/2024 CBC AUTO W DIFF immature granulocytes # 0.04 10 Not Available [facility] (Lab Registration) [address] [place], [address], 05/31/2024 16:34:55 05/31/19 25 05/31/2024 CBC AUTO W DIFF manual differential NO Not Available [facility] (Lab Registration) [address] [place], [address], 05/31/2024 16:34:55 05/31/19 25 05/31/2024 CBC AUTO W DIFF note Unles s other catherine noted testi ng perfo rmed at: [facility] [address] [place] [address] [phone] Vinicio lerner MD CLIA: [id number] Not Available [facility] (Lab Registration) [address] [place], [address], 05/31/2024 16:34:55 05/31/19 25 05/31/2024 IRON/ TIBC/ %SAT (IRON STUDI ES) iron 91 ug/dL 35-150 Not Available [facility] (Lab Registration) [address] [place], [address], 05/31/2024 16:54:33 05/31/19 25 05/31/2024 IRON/ TIBC/ %SAT (IRON STUDI ES) total iron bind cap (TIBC) 295 ug/dL 250-45 0 Not Available [facility] (Lab Registration) [address] [place], [address], 05/31/2024 16:54:33 05/31/19 25 05/31/2024 IRON/ TIBC/ %SAT (IRON STUDI ES) % saturation 31 % 15-55 Not Available [facility] (Lab Registration) [address] [place], [address], 05/31/2024 16:54:33 05/31/19 25 05/31/2024 IRON/ TIBC/ %SAT (IRON STUDI ES) note Unles s other catherine noted testi ng perfo rmed at: [facility] [address] [place] [address] [phone] Vinicio lerner MD CLIA: [id number] Not Available [facility] (Lab Registration) [address], [place], [address], 05/31/2024 16:54:33 05/31/19 25 05/31/2024 VITAM IN B12 vitamin B12 543 pg/mL 193-98 6 Not Available [facility] (Lab Registration) [address], [address], 05/31/2024 17:13:50 05/31/19 25 05/31/2024 VITAM IN B12 folate (folic acid), serum 13.9 NG/mL 8.6-58 .9 Not Available [facility] (Lab Registration) [address] [place], [address], 05/31/2024 17:13:50 05/31/19 25 05/31/2024 VITAM IN B12 note Unles s other catherine noted testi ng perfo rmed at: [facility] [address] [place] [address] [phone] Vinicio lerner MD CLIA: [id number] Not Available [facility] (Lab Registration) [address] [place], [address], 05/31/2024 17:13:50 05/31/19 25 05/31/2024 COMP METAB OLIC PANEL sodium 132 mmol/ L 136-14 5 low Not Available [facility] (Lab Registration) [address] [place], [address], 05/31/2024 17:13:50 05/31/19 25 05/31/2024 COMP METAB OLIC PANEL potassium 4.6 mmol/ L 3.5-5. 1 Not Available [facility] (Lab Registration) [address] [place], [address], 05/31/2024 17:13:50 05/31/19 25 05/31/2024 COMP METAB OLIC PANEL chloride 99 mmol/ L 98-107 Not Available [facility] (Lab Registration) [address] [place], [address], 05/31/2024 17:13:50 05/31/19 25 05/31/2024 COMP METAB OLIC PANEL carbon dioxide 25 mmol/ L 21-32 Not Available [facility] (Lab Registration) [address] [place], [address], 05/31/2024 17:13:50 05/31/19 25 05/31/2024 COMP METAB OLIC PANEL anion gap 8.0 Not Available [facility] (Lab Registration) [address] [place], [address], 05/31/2024 17:13:50 05/31/19 25 05/31/2024 COMP METAB OLIC PANEL glucose 90 mg/dL 70-110 Not Available [facility] (Lab Registration) [address] [place], [address], 05/31/2024 17:13:50 05/31/19 25 05/31/2024 COMP METAB OLIC PANEL blood urea nitrogen 27 mg/dL 7-18 high Not Available [facility] (Lab Registration) [address] [place], [address], 05/31/2024 17:13:50 05/31/19 25 05/31/2024 COMP METAB OLIC PANEL creatinine 1.6 mg/dL 0.6-1. 0 high Not Available [facility] (Lab Registration) [address] [place], [address], 05/31/2024 17:13:50 05/31/19 25 05/31/2024 COMP METAB OLIC PANEL BUN/creatini ne ratio 16.9 9-21 Not Available [facility] (Lab Registration) [address], [place], [address], 05/31/2024 17:13:50 05/31/19 25 05/31/2024 COMP METAB OLIC PANEL estimated glom filtration rate 34 mL/mi n >60- low GFR LIMIT ATION : The eGFR equat ion CKD-E PI 2020 is not appli cable for pedia tric patie nts or great er than 90 years of age. The follo wing condi tions may alter the GFR resul t: extre mes in body size, malnu triti on or obesi ty, skele gordon muscl e disea se, parap legia or quadr ipleg ia, veget lacho diet or rapid ly jamison ing kiney funct ion. Not Available [facility] (Lab Registration) [address], [place], [address], 05/31/2024 17:13:50 05/31/19 25 05/31/2024 COMP METAB OLIC PANEL total protein 7.0 g/dL 6.4-8. 2 Not Available [facility] (Lab Registration) [address] [place], [address], 05/31/2024 17:13:50 05/31/19 25 05/31/2024 COMP METAB OLIC PANEL albumin 3.7 g/dL 3.4-5. 0 Not Available [facility] (Lab Registration) [address] [place], [address], 05/31/2024 17:13:50 05/31/19 25 05/31/2024 COMP METAB OLIC PANEL calcium 9.7 mg/dL 8.5-10 .1 Not Available [facility] (Lab Registration) [address] [place], [address], 05/31/2024 17:13:50 05/31/19 25 05/31/2024 COMP METAB OLIC PANEL corrected calcium 9.9 mg/dL 8.5-10 .1 Not Available [facility] (Lab Registration) [address] [place], [address], 05/31/2024 17:13:50 05/31/19 25 05/31/2024 COMP METAB OLIC PANEL bilirubin total 1.0 mg/dL 0.4-1. 5 Not Available [facility] (Lab Registration) [address] [place], [address], 05/31/2024 17:13:50 05/31/19 25 05/31/2024 COMP METAB OLIC PANEL AST (SGOT) 16 U/L 15-37 Not Available [facility] (Lab Registration) [address] [place], [address], 05/31/2024 17:13:50 05/31/19 25 05/31/2024 COMP METAB OLIC PANEL ALT (SGPT) 23 U/L 12-78 Not Available [facility] (Lab Registration) [address] [place], [address], 05/31/2024 17:13:50 05/31/19 25 05/31/2024 COMP METAB OLIC PANEL alk phosphatase 78 U/L 53-141 Not Available [facility] (Lab Registration) [address] [place], [address], 05/31/2024 17:13:50 05/31/19 25 05/31/2024 COMP METAB OLIC PANEL note Unles s other catherine noted testi ng perfo rmed at: [facility] [address] [place] [address] [phone] Vinicio lerner MD CLIA: [id number] Not Available [facility] (Lab Registration) [address] [place], [address], 05/31/2024 17:13:50 05/31/19 25 05/31/2024 MAGNE SIUM magnesium 1.9 mg/dL 1.8-2. 4 Not Available [facility] (Lab Registration) [address], [place], [address], 05/31/2024 17:13:52 05/31/1905/31/2024 MAGNE SIUM note Unles s other catherine noted testi ng perfo rmed at: [facility] [address] [place] [address] [phone] Vinicio lerner MD CLIA: [id number] Not Available [facility] (Lab Registration) [address], [place], [address], 05/31/2024 17:13:52 05/31/1905/31/2024 THYRO ID STIMU LATIN G HORMO NE thyroid stimulating hormone 1.31 mIU/m L 0.34-4 .80 Not Available [facility] (Lab Registration) [address], [place], [address], 05/31/2024 17:13:53 05/31/19 25 05/31/2024 THYRO ID STIMU LATIN G HORMO NE note Nisa s other catherine noted testi ng perfo rmed at: [facility] [address] [place] [address] [phone] Vinicio lerner MD CLIA: [id number] Not Available [facility] (Lab Registration) [address] [place], [address], 05/31/2024 17:13:53 05/31/1905/31/2024 URIC ACID uric acid 4.6 mg/dL 2.2-7. 7 Not Available [facility] (Lab Registration) [address] [place], [address], 05/31/2024 17:14:56 05/31/19 25 05/31/2024 URIC ACID note Minervaes s other catherine noted testi ng perfo rmed at: [facility] [address] [place] [address] [phone] Vinicio lerner MD CLIA: [id number] Not Available [facility] (Lab Registration) [address] [place], [address], 05/31/2024 17:14:56 05/31/19 25 05/31/2024 NATHALY TIN ferritin 315 NG/mL 8-388 Not Available [facility] (Lab Registration) [address], [address], 05/31/2024 17:14:58 05/31/19 25 05/31/2024 NATHALY TIN note Unles s other catherine noted testi ng perfo rmed at: [facility] [address] [place] [address] [phone] Vinicio lerner MD CLIA: [id number] Not Available [facility] (Lab Registration) [address], [address], 05/31/2024 17:14:58 05/31/19 25 05/31/2024 CULTU RE URINE results MRB 06-01 708 No Growt h at Day 1 MRB 06-02 722 No Signi fican t Growt h at Day 2 Not Available [facility] (Lab Registration) [address], [address], 06/02/2024 07:24:26 05/31/19 25 05/31/2024 CULTU RE URINE note Unles s other catherine noted testi ng perfo rmed at: [facility] [address] [place] [address] [phone] Vinicio lerner MD CLIA: [id number] Not Available [facility] (Lab Registration) [address] [place], [address], 06/02/2024 07:24:26 05/31/19 25 05/31/2024 LIPID PANEL note Unles s other catherine noted testi ng perfo rmed at[facility] [address] [place] [address] [phone] Vinicio lerner MD CLIA: [id number] Not Available [facility] (Lab Registration) [address] [place], [address], 06/02/2024 10:20:16 05/31/19 25 06/02/2024 LIPID PANEL triglyceride 167 mg/dL 20-200 The Natio nal Michela stero l Educa tion Progr am (NCEP ) has set the follo wing guide lines for Fasti ng Trigl yceri jena: BRUCE L: <150 mg/dL BORDE RLINE HIGH: 150 - 199 mg/dL HIGH: 200 - 499 mg/dL VERY HIGH: > or =500 mg/dL Not Available [facility] (Lab Registration) [address] [place], [address], 06/02/2024 10:20:16 05/31/19 25 06/02/2024 LIPID PANEL cholesterol 210 mg/dL 0-200 high The Natio nal Michela stero l Educa tion Progr am (NCEP ) has set the follo wing guide lines for Fasti ng Michela stero l: KHRIS ABLE: <200 mg/dL BORDE RLINE HIGH: 200 - 239 mg/dL HIGH: > or =240 mg/dL Not Available [facility] (Lab Registration) [address], [place], [address], 06/02/2024 10:20:16 05/31/19 25 06/02/2024 LIPID PANEL HDL cholesterol 56 mg/dL 60- low The Natio nal Michela stero l Educa tion Progr am (NCEP ) has set the follo wing guide lines for Fasti ng HDL Michela stero l: LOW HDL: <40 mg/dL BRUCE L: 40 - 60 mg/dL KHRIS ABLE: >60 mg/dL Not Available [facility] (Lab Registration) [address] [place], [address], 06/02/2024 10:20:16 05/31/19 25 06/02/2024 LIPID PANEL LDL calculated 121 mg/dL 100- The Natio nal Michela stero l Educa tion Progr am (NCEP ) has set the follo wing guide lines for Fasti ng LDL Michela stero l: OPTIM AL: < 100 mg/dL LOW RISK: 100 - 129 mg/dL BORDE RLINE HIGH: 130 - 159 mg/dL HIGH: 160 - 189 mg/dL VERY HIGH: > or = 190 mg/dL Not Available [facility] (Lab Registration) [address], [place], [address], 06/02/2024 10:20:16 05/31/19 25 06/02/2024 LIPID PANEL chol/HDL ratio 4 -5 Not Available [facility] (Lab Registration) [address], [place], [address], 06/02/2024 10:20:16 06/09/19 25 06/08/2024 CULTU RE URINE results LT 06-09 516 No Signi figan t Growt h at Day 1 LT 06-10 512 No Signi fican t Growt h at Day 2 Not Available [facility] (Lab Registration) [address], [place], [address], 06/10/2024 05:14:18 06/09/19 25 06/08/2024 CULTU RE URINE note Unles s other catherine noted testi ng perfo rmed at: [facility] [address] [employer] [place] [address] [phone] Vinicio lerner MD CLIA: [id number] Not Available [facility] (Lab Registration) [address], [place], [address], 06/10/2024 05:14:18 07/16/19 25 07/15/2024 CBC AUTO W DIFF WBC 10.5 10 4.5-11 .5 Not Available [facility] (Lab Registration) [address] [place], [address], 07/15/2024 16:54:44 07/16/19 25 07/15/2024 CBC AUTO W DIFF RBC 4.51 10 4.25-5 .57 Not Available [facility] (Lab Registration) [address] [place], [address], 07/15/2024 16:54:44 07/16/19 25 07/15/2024 CBC AUTO W DIFF HGB 13.7 g/dL 12.0-1 5.7 Not Available [facility] (Lab Registration) [address] [place], [address], 07/15/2024 16:54:44 07/16/19 25 07/15/2024 CBC AUTO W DIFF HCT 41.2 % 36.0-4 7.0 Not Available [facility] (Lab Registration) [address] [place], [address], 07/15/2024 16:54:44 07/16/19 25 07/15/2024 CBC AUTO W DIFF MCV 91.4 fL 80-95 Not Available [facility] (Lab Registration) [address] [place], [address], 07/15/2024 16:54:44 07/16/19 25 07/15/2024 CBC AUTO W DIFF MCH 30.4 pg 27.0-3 4.0 Not Available [facility] (Lab Registration) [address] [place], [address], 07/15/2024 16:54:44 07/16/19 25 07/15/2024 CBC AUTO W DIFF MCHC 33.3 g/dL 32.0-3 6.0 Not Available [facility] (Lab Registration) [address] [place], [address], 07/15/2024 16:54:44 07/16/19 25 07/15/2024 CBC AUTO W DIFF platelet count 238 10 150-45 0 Not Available [facility] (Lab Registration) [address] [place], [address], 07/15/2024 16:54:44 07/16/19 25 07/15/2024 CBC AUTO W DIFF RDW 14.1 % 12.3-1 5.1 Not Available [facility] (Lab Registration) [address] [place], [address], 07/15/2024 16:54:44 07/16/19 25 07/15/2024 CBC AUTO W DIFF MPV 10.7 fL 7.4-10 .4 high Not Available [facility] (Lab Registration) [address] [place], [address], 07/15/2024 16:54:44 07/16/19 25 07/15/2024 CBC AUTO W DIFF granulocyte% 63.7 % 40-75 Not Available [facility] (Lab Registration) [address] [place], [address], 07/15/2024 16:54:44 07/16/19 25 07/15/2024 CBC AUTO W DIFF lymphocyte% 25.8 % 15-57 Not Available [facility] (Lab Registration) [address] [place], [address], 07/15/2024 16:54:44 07/16/19 25 07/15/2024 CBC AUTO W DIFF monocyte% 8.2 % 4.0-12 .0 Not Available [facility] (Lab Registration) [address] [place], [address], 07/15/2024 16:54:44 07/16/19 25 07/15/2024 CBC AUTO W DIFF eosinophil% 1.6 % 0.0-4. 0 Not Available [facility] (Lab Registration) [address] [place], [address], 07/15/2024 16:54:44 07/16/19 25 07/15/2024 CBC AUTO W DIFF basophil% 0.6 % 0.0-1. 0 Not Available [facility] (Lab Registration) [address] [place], [address], 07/15/2024 16:54:44 07/16/19 25 07/15/2024 CBC AUTO W DIFF immature granulocytes % 0.1 % 0.0-0. 8 Not Available [facility] (Lab Registration) [address] [place], [address], 07/15/2024 16:54:44 07/16/19 25 07/15/2024 CBC AUTO W DIFF granulocyte# 6.68 10 Not Available [facility] (Lab Registration) [address] [place], [address], 07/15/2024 16:54:44 07/16/19 25 07/15/2024 CBC AUTO W DIFF lymphocyte# 2.71 10 Not Available [facility] (Lab Registration) [address] [place], [address], 07/15/2024 16:54:44 07/16/19 25 07/15/2024 CBC AUTO W DIFF monocyte# 0.86 10 Not Available [facility] (Lab Registration) [address] [place], [address], 07/15/2024 16:54:44 07/16/19 25 07/15/2024 CBC AUTO W DIFF eosinophil# 0.17 10 Not Available [facility] (Lab Registration) [address] [place], [address], 07/15/2024 16:54:44 07/16/19 25 07/15/2024 CBC AUTO W DIFF basophil# 0.06 10 Not Available [facility] (Lab Registration) [address] [place], [address], 07/15/2024 16:54:44 07/16/19 25 07/15/2024 CBC AUTO W DIFF immature granulocytes # 0.01 10 Not Available [facility] (Lab Registration) [address] [place], [address], 07/15/2024 16:54:44 07/16/19 25 07/15/2024 CBC AUTO W DIFF manual differential NO Not Available [facility] (Lab Registration) [address], [place], [address], 07/15/2024 16:54:44 07/16/19 25 07/15/2024 CBC AUTO W DIFF note Unles s other catherine noted testi ng perfo rmed at: [facility] [place] [address] [phone] Vinicio lerner MD CLIA: [id number] Not Available [facility] (Lab Registration) [address], [place], [address], 07/15/2024 16:54:44 07/16/19 25 07/15/2024 IRON/ TIBC/ %SAT (IRON STUDI ES) iron 59 ug/dL 35-150 Not Available [facility] (Lab Registration) [address] [place], [address], 07/15/2024 16:57:22 07/16/19 25 07/15/2024 IRON/ TIBC/ %SAT (IRON STUDI ES) total iron bind cap (TIBC) 302 ug/dL 250-45 0 Not Available [facility] (Lab Registration) [address] [place], [address], 07/15/2024 16:57:22 07/16/19 25 07/15/2024 IRON/ TIBC/ %SAT (IRON STUDI ES) % saturation 20 % 15-55 Not Available [facility] (Lab Registration) [address] [place], [address], 07/15/2024 16:57:22 07/16/19 25 07/15/2024 IRON/ TIBC/ %SAT (IRON STUDI ES) note Unles s other catherine noted testi ng perfo rmed at: [facility] [address] [place] [address] [phone] Vinicio lerner MD CLIA: [id number] Not Available [facility] (Lab Registration) [address] [place], [address], 07/15/2024 16:57:22 07/16/19 25 07/15/2024 COMP METAB OLIC PANEL sodium 137 mmol/ L 136-14 5 Not Available [facility] (Lab Registration) [address] [place], [address], 07/15/2024 17:47:26 07/16/19 25 07/15/2024 COMP METAB OLIC PANEL potassium 4.6 mmol/ L 3.5-5. 1 Not Available [facility] (Lab Registration) [address] [place], [address], 07/15/2024 17:47:26 07/16/19 25 07/15/2024 COMP METAB OLIC PANEL chloride 100 mmol/ L 98-107 Not Available [facility] (Lab Registration) [address] [place], [address], 07/15/2024 17:47:26 07/16/19 25 07/15/2024 COMP METAB OLIC PANEL carbon dioxide 28 mmol/ L 21-32 Not Available [facility] (Lab Registration) [address] [place], [address], 07/15/2024 17:47:26 07/16/19 25 07/15/2024 COMP METAB OLIC PANEL anion gap 9.0 Not Available [facility] (Lab Registration) [address] [place], [address], 07/15/2024 17:47:26 07/16/19 25 07/15/2024 COMP METAB OLIC PANEL glucose 90 mg/dL 70-110 Not Available [facility] (Lab Registration) [address] [place], [address], 07/15/2024 17:47:26 07/16/19 25 07/15/2024 COMP METAB OLIC PANEL blood urea nitrogen 22 mg/dL 7-18 high Not Available [facility] (Lab Registration) [address], [place], [address], 07/15/2024 17:47:26 07/16/19 25 07/15/2024 COMP METAB OLIC PANEL creatinine 1.4 mg/dL 0.6-1. 0 high Not Available [facility] (Lab Registration) [address], [place], [address], 07/15/2024 17:47:26 07/16/19 25 07/15/2024 COMP METAB OLIC PANEL BUN/creatini ne ratio 15.7 9-21 Not Available [facility] (Lab Registration) [address], [place], [address], 07/15/2024 17:47:26 07/16/19 25 07/15/2024 COMP METAB OLIC PANEL estimated glom filtration rate 40 mL/mi n >60- low GFR LIMIT ATION : The eGFR equat ion CKD-E PI 2020 is not appli cable for pedia tric patie nts or great er than 90 years of age. The follo wing condi tions may alter the GFR resul t: extre mes in body size, malnu triti on or obesi ty, skele gordon muscl e disea se, parap legia or quadr ipleg ia, veget lacho diet or rapid ly jamison ing kiney funct ion. Not Available [facility] (Lab Registration) [address], [place], [address], 07/15/2024 17:47:26 07/16/19 25 07/15/2024 COMP METAB OLIC PANEL osmolality (calculated) 288 mOsm/ kg 275-30 1 OSMOL ALITY IS A CALCU LATIO N UTILI ZING THE SERUM /PLAS MA SODIU M, GLUCO SE AND UREA NITRO GEN (BUN) LEVEL S. FOR THE MOST ACCUR ATE RESUL T A MEASU RED SERUM OSMOL ALITY IS SUGGE STED. Not Available [facility] (Lab Registration) [address], [place], [address], 07/15/2024 17:47:26 07/16/19 25 07/15/2024 COMP METAB OLIC PANEL total protein 7.4 g/dL 6.4-8. 2 Not Available [facility] (Lab Registration) [address] [place], [address], 07/15/2024 17:47:26 07/16/19 25 07/15/2024 COMP METAB OLIC PANEL albumin 3.9 g/dL 3.4-5. 0 Not Available [facility] (Lab Registration) [address] [place], [address], 07/15/2024 17:47:26 07/16/19 25 07/15/2024 COMP METAB OLIC PANEL calcium 10.4 mg/dL 8.5-10 .1 high Not Available [facility] (Lab Registration) [address] [place], [address], 07/15/2024 17:47:26 07/16/19 25 07/15/2024 COMP METAB OLIC PANEL corrected calcium 10.5 mg/dL 8.5-10 .1 high Not Available [facility] (Lab Registration) [address] [place], [address], 07/15/2024 17:47:26 07/16/19 25 07/15/2024 COMP METAB OLIC PANEL bilirubin total 0.5 mg/dL 0.4-1. 5 Not Available [facility] (Lab Registration) [address] [place], [address], 07/15/2024 17:47:26 07/16/19 25 07/15/2024 COMP METAB OLIC PANEL AST (SGOT) 16 U/L 15-37 Not Available [facility] (Lab Registration) [address] [place], [address], 07/15/2024 17:47:26 07/16/19 25 07/15/2024 COMP METAB OLIC PANEL ALT (SGPT) 35 U/L 12-78 Not Available [facility] (Lab Registration) [address] [place], [address], 07/15/2024 17:47:26 07/16/19 25 07/15/2024 COMP METAB OLIC PANEL alk phosphatase 100 U/L 53-141 Not Available [facility] (Lab Registration) [address] [place], [address], 07/15/2024 17:47:26 07/16/19 25 07/15/2024 COMP METAB OLIC PANEL note Unles s other catherine noted testi ng perfo rmed at: [facility] [address] [place] [address] [phone] Vinicio lerner MD CLIA: [id number] Not Available [facility] (Lab Registration) [address] [place], [address], 07/15/2024 17:47:26 07/16/19 25 07/15/2024 THYRO ID STIMU LATIN G HORMO NE thyroid stimulating hormone 1.05 mIU/m L 0.34-4 .80 Not Available [facility] (Lab Registration) [address] [place], [address], 07/15/2024 17:47:27 07/16/19 25 07/15/2024 THYRO ID STIMU LATIN G HORMO NE note Unles s other catherine noted testi ng perfo rmed at: [facility] [address] [place] [address] [phone] Vinicio lerner MD CLIA: [id number] Not Available [facility] (Lab Registration) [address] [place], [address], 07/15/2024 17:47:27 07/16/19 25 07/15/2024 VITAM IN D TOTAL (D2+D 3) vitamin D25 (D2+D3) 72.0 NG/mL 30-100 Not Available [facility] (Lab Registration) [address] [place], [address], 07/15/2024 17:47:29 07/16/19 25 07/15/2024 VITAM IN D TOTAL (D2+D 3) note Unles s other catherine noted testi ng perfo rmed at: [facility] [address] [place] [address] [phone] Vinicio lerner MD CLIA: [id number] Not Available [facility] (Lab Registration) [address] [place], [address], 07/15/2024 17:47:29 07/16/19 25 07/15/2024 URIC ACID uric acid 5.1 mg/dL 2.2-7. 7 Not Available [facility] (Lab Registration) [address] [place], [address], 07/15/2024 17:47:29 07/16/19 25 07/15/2024 URIC ACID note Nisa s other catherine noted testi ng perfo rmed at: [facility] [address] [place], [place] [id number] [phone] Vinicio lerner MD CLIA: [id number] Not Available [facility] (Lab Registration) [address] [place], [address], 07/15/2024 17:47:29 07/16/19 25 07/15/2024 NATHALY TIN ferritin 230 NG/mL 8-388 Not Available [facility] (Lab Registration) [address] [place], [address], 07/15/2024 17:47:30 07/16/19 25 07/15/2024 NATHALY TIN note Nisa s other catherine noted testi ng perfo rmed at: [facility] [address] [place], [place] [address] [phone] Vinicio lerner MD CLIA: [id number] Not Available [facility] (Lab Registration) [address], [place], [address], 07/15/2024 17:47:30 07/16/19 25 07/15/2024 VITAM IN B12 vitamin B12 404 pg/mL 193-98 6 Not Available [facility] (Lab Registration) [address], [place], [address], 07/15/2024 17:47:31 07/16/19 25 07/15/2024 VITAM IN B12 folate (folic acid), serum 9.9 NG/mL 8.6-58 .9 Not Available [facility] (Lab Registration) [address], [place], [address], 07/15/2024 17:47:31 07/16/19 25 07/15/2024 VITAM IN B12 note Unles s other catherine noted testi ng perfo rmed at: [facility] [address] [place] [address] [phone] Vinicio lerner MD CLIA: [id number] Not Available [facility] (Lab Registration) [address] [place], [address], 07/15/2024 17:47:31 07/16/19 25 07/15/2024 LIPID PANEL triglyceride 147 mg/dL 20-200 The Natio nal Mihcela stero l Educa tion Progr am (NCEP ) has set the follo wing guide lines for Fasti ng Trigl yceri jena: BRUCE L: <150 mg/dL BORDE RLINE HIGH: 150 - 199 mg/dL HIGH: 200 - 499 mg/dL VERY HIGH: > or =500 mg/dL Not Available [facility] (Lab Registration) [address] [place], [address], 07/15/2024 17:47:32 07/16/19 25 07/15/2024 LIPID PANEL cholesterol 176 mg/dL 0-200 [facility] [employer] ([employer] ) has set the follo wing guide lines for Fasti ng Michela stero l: KHRIS ABLE: <200 mg/dL BORDE RLINE HIGH: 200 - 239 mg/dL HIGH: > or =240 mg/dL Not Available [facility] (Lab Registration) [address], [place], [address], 07/15/2024 17:47:32 07/16/19 25 07/15/2024 LIPID PANEL HDL cholesterol 53 mg/dL 60- low [facility] [employer] [employer] ([employer] ) has set the follo wing guide lines for Fasti ng HDL Michela stero l: LOW HDL: <40 mg/dL BRUCE L: 40 - 60 mg/dL KHRIS ABLE: >60 mg/dL Not Available [facility] (Lab Registration) [address], [place], [address], 07/15/2024 17:47:32 07/16/19 25 07/15/2024 LIPID PANEL LDL calculated 94 mg/dL 100- low [facility] [employer] ([facility] ) has set the follo wing guide lines for Fasti ng LDL Michela stero l: OPTIM AL: < 100 mg/dL LOW RISK: 100 - 129 mg/dL BORDE RLINE HIGH: 130 - 159 mg/dL HIGH: 160 - 189 mg/dL VERY HIGH: > or = 190 mg/dL Not Available [facility] (Lab Registration) [address], [place], [address], 07/15/2024 17:47:32 07/16/19 25 07/15/2024 LIPID PANEL chol/HDL ratio 3 -5 Not Available [facility] (Lab Registration) [address] [place], [address], 07/15/2024 17:47:32 07/16/19 25 07/15/2024 LIPID PANEL note Unles s other catherine noted testi ng perfo rmed at: [facility] [address] [place] [address] [phone] Vinicio lerner MD CLIA: [id number] Not Available [facility] (Lab Registration) [address], [place], [address], 07/15/2024 17:47:32 07/16/19 25 07/15/2024 HEMOG LOBIN A1C glycosylated hemoglobin A1C 5.3 % 4.5-6. 2 Not Available [facility] (Lab Registration) [address] [place], [address], 07/15/2024 17:47:33 07/16/19 25 07/15/2024 HEMOG LOBIN A1C estimated average glucose 105 mg/dL 82-131 Not Available [facility] (Lab Registration) [address], [address], 07/15/2024 17:47:33 07/16/19 25 07/15/2024 HEMOG LOBIN A1C note Unles s other catherine noted testi ng perfo rmed at: [facility] [address] [place] [address] [phone] Vinicio lerner MD CLIA: [id number] Not Available [facility] (Lab Registration) [address] [place], [address], 07/15/2024 17:47:33 07/16/19 25 07/15/2024 CULTU RE URINE results [facility] 07-16 716 >100, 000 COL/M L Gram Negat yoni Rods [facility] 07-16 717 IDENT IFICA TION AND SUSCE PTIBI LITY TESTI NG PERFO RMED AT [facility] [address] [place] [address] Not Available [facility] (Lab Registration) [address] [place], [address], 07/16/2024 07:18:14 07/16/19 25 07/15/2024 CULTU RE URINE note Unles s other catherine noted testi ng perfo rmed at: [facility] [address] [place] [address] [phone] Vinicio lerner MD CLIA: [id number] Not Available [facility] (Lab Registration) [address] [facility], [place], [address], 07/16/2024 07:18:14 07/16/19 25 07/15/2024 CULTU RE URINE culccur ===== ===== ===== ===== ===== ===== ===== ===== ===== ===== ===== ===== ===== ===== ===== ===== ===== ===== ===== ===== ===== ===== ===== ===== Speci men NO.: [id number] Exam Statu s: Final Proce dure: CULTU RE URINE ===== ===== ===== ===== ===== ===== ===== ===== ===== ===== ===== ===== ===== ===== ===== ===== ===== ===== ===== ===== ===== ===== ===== ===== Iso/R esult : 01 Klebs iella pneum oniae Antim icrob ic/Do se KALANI Syste kalani Urine __ ___ ___ Aztre onam <2 S Cipro floxa delmar <0.25 S ESBL NEG N Levof loxac in <=0.5 S Merop enem <0.5 S Amika delmar <=8 S Ampic illin >16 R Amp/S ulbac madden 8/4 S Cefep lillie <=1 S Cefta zidim e <2 S Ceftr iaxon e <=1 S Ertap enem <0.25 S Genta micin <2 S Piper acill in/Ta zo <=2/4 S Tetra cycli ne <2 S Tobra mycin <=2 S Trime th/Rosas lfa <=0.5 S Sensi tivit y Requi red? YES [facility] 07-16 716 >100, 000 COL/M L Gram Negat yoni Rods [facility] 07-16 717 IDENT IFICA TION AND SUSCE PTIBI LITY TESTI NG PERFO RMED AT [facility] [address] [place] [address] Not Available [facility] (Lab Registration) [address] [place], [address], 07/17/2024 08:26:21 07/16/19 25 07/15/2024 CULTU RE URINE note Unles s other catherine noted testi ng perfo rmed at: [facility] on [facility] [address] [place] [address] [phone] Vinicio lerner MD CLIA: [id number] Not Available [facility] (Lab Registration) [address] [place], [address], 07/17/2024 08:26:21 07/16/19 25 07/15/2024 urina lysis , dipst ick Leukocytes (reference range) trace Not Available [address] [place], [address], 07/15/2024 14:18:44 07/16/19 25 07/15/2024 urina lysis , dipst ick Nitrite (reference range:) positi ve Not Available [address] [place], [address], 07/15/2024 14:18:44 07/16/19 25 07/15/2024 urina lysis , dipst ick Urobilinogen (reference range) 0.2 Not Available [address] [place], [address], 07/15/2024 14:18:44 07/16/19 25 07/15/2024 urina lysis , dipst ick Protein (reference range) negati ve Not Available [address] [place], [address], 07/15/2024 14:18:44 07/16/19 25 07/15/2024 urina lysis , dipst ick pH (reference range 5-8.5) 5.5 Not Available [address] [place], [address], 07/15/2024 14:18:44 07/16/19 25 07/15/2024 urina lysis , dipst ick Blood (reference range:) negati ve Not Available [address] [place], [address], 07/15/2024 14:18:44 07/16/19 25 07/15/2024 urina lysis , dipst ick Specific [place] (reference range) 1.015 Not Available [place] [address] [place], [address], 07/15/2024 14:18:44 07/16/19 25 07/15/2024 urina lysis , dipst ick Ketone (reference range) negati ve Not Available [place] [address] [place], [address], 07/15/2024 14:18:44 07/16/19 25 07/15/2024 urina lysis , dipst ick Bilirubin (reference range) negati ve Not Available [place] [address] [place], [address], 07/15/2024 14:18:44 07/16/19 25 07/15/2024 urina lysis , dipst ick Glucose (reference range) 500 Not Available [address] [place], [address], 07/15/2024 14:18:44 07/16/19 25 07/15/2024 urina lysis , dipst ick Color (reference range: yellow-brown ) Yellow Not Available [address] [place], [address], 07/15/2024 14:18:44 01/25/20 23 01/22/2023 stres s echoc ardio gram No observ ation record ed. [email or web address] [facility] [address], [place], [address], 01/26/2023 09:41:19 07/29/19 24 07/29/2023 DEXA, axial skele ton [facility] [address] [place] [address] Phone: Fax: Name: EDITH COUCH Exam Date: 024 : 951 Age 72 years Gender : F Access ion: [id number] Physic marissa: AMBURG EY, TAFFAN Y Facili ty: [facility] Facili ty HSV: Outpat ient Exam: DE DEXA AXIAL BONE MINERA L DENSIT OMETRY , DEXA SCAN CLINIC AL HISTOR Y: Osteop orosis screen ing. Compar leoncio: None . FINDIN GS: Bone densit ometry calcul ations of the lumbar spine and femurs were obtain ed. Averag e BMD for the lumbar spine from L1-L4 is 1.163 g/sq cm. T-scor e is -0.1. Z-scor e is 0.9. Left femora l neck BMD is 0.878 g/sq cm. T-scor e is -1.2. Z score is 0.2. Right femora l neck BMD is 0.816 g/sq cm. T-scor e is -1.6. Z score is -0.2. IMPRES [place]: 1. Normal BMD of the lumbar spine. 2. Osteop enia BMD of the left femora l neck. 3. Osteop enia BMD of the right femora l neck. FRAX result s gives 10 year probab ility of a major osteop orotic fractu re as 10.6 % and a hip fractu re as 1.9 % Films review ed , interp reted and dictat ed by Dr. Fozia Lyon . Transc ribed by Ian Chirinos PA-C. Dictat ed By: Fozia olmos Transc ribed By: Fozia olmos Transc ribed On: 024 2:38 PM Electr onical ly signed by: Fozia olmos Thank you for referr ing EDITH COUCH to [facility]. Legall y authen ticate d by SANJU Wheeler MD 07-28 14:38: 45 CC'ed Logic: Orderi ng Provid er: AMBURG EY TAFFAN Y CC Provid er: AMBURG EY TAFFAN Y Attend ing Provid er: AMBURG EY TAFFAN Y Referr ing Provid er: AMBURG EY TAFFAN Y Admitt ing Provid er: AMBURG EY TAFFAN Y [id number] [place] [address] (Radiology) [address] [place], [address], 07/30/2023 14:38:28 07/29/19 24 07/29/2023 LDCT, chest , for lung devan lopez [facility] [address] [facility] [place] [address] Phone: Fax: Name: EDITH COUCH Exam Date: 024 : [birth year] Age 72 years Gender : F Access ion: [id number] Physic marissa: GHADA GONZÁLES Facili ty: [facility] Facili ty HSV: Outpat ient Exam: CT CHEST LOW DOSE CT SCAN OF THE CHEST WITHOU T CONTRA ST SCREEN ING PROTOC OL COMPAR LEONCIO: 12/11/19 22 HISTOR Y: 20 pack year smokin g histor y in a patien t quit smokin g 7 years prior. . PROCED URE: Axial images were obtain ed from the lung apex to the mid abdome n by comput ed tomogr aphy and a low-do se chest screen ing protoc ol. CTDIvo is 1.47 mGy and DLP is 48.33 mGy-cm . FINDIN GS: CHEST: There is no axilla ry adenop athy. There is no hilar or medias tinal adenop athy. Heart size is normal . There are multiv essel hyatt ry artery calcif icatio ns. There is no perica rdial or pleura l effusi on. Limite d images of the upper abdome n are unrema rkable . No suspic ious infilt rate or nodule s identi fied. There are scatte red granul omas. IMPRES [place]ENTON: Lung RADS catego ry 1: Contin ued low-do se chest CT survei llance recomm ended in 1 year. Films review ed , interp reted and dictat ed by Dr. Fozia Lyon . Transc ribed by Ian Chirinos PA-C. Dictat ed By: Fozia olmos Transc ribed By: Fozia olmos Transc ribed On: 3:28 PM Electr onical ly signed by: Fozia olmos 024 Thank you [facility] referr [facility] Legall y authen ticate d by SANJU Wheeler MD 07-28 15:28: 19 CC'ed Logic: Orderi ng Provid er: ELIECER RENDON CC Provid er: AMBURG EY TAFFAN Y Attend ing Provid er: ELIECER RENDON Referr ing Provid er: ELIECER RENDON Admitt ing Provid er: ELIECER RENDON tpardini [facility] (Radiology) [address] [place], [address], 07/30/2023 08:44:03 07/29/19 24 07/29/2023 MAMMO , scree john, digit al, bilat eral [facility] 9 [facility] [place] [address] Phone: Fax: Name: EDITH COUCH Exam Date: : [birth year] Age 72 years Gender : F Access ion: [id number] Physic marissa: AMBURG EY, TAFFAN Y Facili ty: [facility] Facili ty HSV: Outpat ient Exam: SCREEN MAMMO W CAD BILAT MAMMOG BOB SCREEN ING BILATE RAL HISTOR Y: Routin e screen ing exam COMPAR LEONCIO: None, Baseli ne exam TECHNI QUE: Standa rd digita l 2-D views with 3-D tomosy nthesi s DENSIT Y: There are scatte red areas of fibrog landul ar densit y FINDIN GS: Benign calcif icatio ns. Scatte red small bilate ral asymme tries are probab ly benign . No defini te suspic ious mass, suspic ious calcif icatio ns or laisha ectura l distor tion is presen t. IMPRES [place]: Scatte red small bilate ral asymme tries are probab ly benign . BI-RAD S 3: Probab ly benign findin g RECOMM ENDATI ON: Follow -up bilate ral diagno stic mammog bob in 6 months . CAD was utiliz ed during interp retati on. The patien t will be sent a letter from the mammog morelia depart ment with their mammog morelia result s. Dictat ed By: Fozia olmos Transc ribed By: Fozia olmos Transc ribed On: 024 3:47 PM Electr onical ly signed by: Fozia olmos 024 Thank you for referr EDITH Varghese to [facility]. Legall y authen ticate d by SANJU Wheeler MD 2023-0 07-28 15:47: 19 CC'ed Logic: Orderi ng Provid er: AMBURG EY TAFFAN Y CC Provid er: AMBURG EY TAFFAN Y Attend ing Provid er: AMBURG EY TAFFAN Y Referr ing Provid er: AMBURG EY TAFFAN Y Admitt ing Provid er: AMBURG EY TAFFAN Y [email or web address] [facility] (Radiology) [address] [place], [address], 07/30/2023 14:38:22 07/27/19 25 07/26/2024 MAMMO , agathae john, digit al, bilat eral [facility] 9 [facility] [place] [address] Phone: Fax: Name: EDITH COUCH Exam Date: 025 : [birth year] Age 73 years Gender : F Access ion: [id number] Physic marissa: AMBURG EY, TAFFAN Y Facili ty: [facility] Facili ty HSV: Outpat ient Exam: KENY SCREEN MAMMO W CAD BILAT Exam: 3-D screen ing mammog morelia includ ing tomosy nthesi s and CAD (Compu ter Assist ed Detect ion). Clinic al indica tion: Asympt omatic screen ing exam Compar leoncio: Exams to 2023 TECHNI QUE: Routin e bilate ral 2D screen ing mammog bob with CC and MLO views obtain ed. 3-D tomosy nthesi s and Comput er assist ed detect ion were utiliz ed for this exam. BREAST DENSIT Y: There are scatte red areas of fibrog landul ar densit y FINDIN GS: No suspic ious mass, laisha ectura l distor tion, or suspic ious calcif icatio ns are presen t. IMPRES [place]: No eviden ce of malign wilmer in either breast Recomm endati on: Annual screen ing mammog morelia recomm ended in one year The result s of this report will be commun icated to the patien t by letter in layman 's terms. ACR BI-RAD S: BI-RAD S assess ment catego ry 1: Negati ve mammog bob Mammog morelia does not detect approx imatel y 10-15% of breast cancer s. A normal mammog bob does not exclud e breast cancer in a patien t with palpab le mass or abnorm al findin gs on physic al examin ation. These patien ts may need biopsi es and when clinic ally indica jose a biopsy should not be postpo isabel becaus e of a normal mammog bob. If the patien t has breast surger y or biopsy , FDA/MQ [place] Regula tory Guidel sintia mandat e that this facili ty receiv e pathol ogic result s for follow -up correl ation. Electr onical ly signed by: Renato Jacobo MD 2024 02:56 PM EDT RP Workst ation: [id number] Dictat ed By: Renato Jacobo Transc ribed By: Transc ribed On: 025 2:48 PM Electr onical ly signed by: Renato Jacobo 025 Thank you for referr ing [facility] Legall y authen ticate d by NOLBERTO LUNSFORD MD 07-26 14:48: 00 CC'ed Logic: Orderi ng Provid er: AMBURG EY TAFFAN Y CC Provid er: AMBURG EY TAFFAN Y Attend ing Provid er: AMBURG EY TAFFAN Y Referr ing Provid er: AMBURG EY TAFFAN Y Admitt ing Provid er: AMBURG EY TAFFAN Y [email or web address] [facility] (Radiology) [address] [place], [address], 07/27/2024 11:32:08 07/28/19 25 07/26/2024 LDCT, chest , for lung [facility]ce r [facility] [address] [place] [address] Phone: Fax: Name: EDITH COUCH Exam Date: : [birth year] Age 73 years Gender : F Access ion: [id number] Physic marissa: AMBURG EY, TAFFAN Y Facili ty: [facility] Facili ty HSV: Outpat ient Exam: CT CHEST LOW DOSE CT CHEST WITHOU T IV CONTRA ST 025 1:50 PM CDT CLINIC AL INDICA TION: Female , 73 years old. screen ing TECHNI QUE: Low-do se screen ing lung CT was perfor med. Dose modula tion, automa jose exposu re contro l, and/or intera tive recons tructi on techni que used for dose reduct ion. COMPAR LEONCIO: CT of the chest 024 FINDIN GS: Multip le calcif ied lymph nodes reflec t benign sequel ae of old granul omatou s diseas e. The visibl e portio n of the thyroi d gland is unrema rkable . The esopha vanessa is normal . The heart is normal in size. Lipoma tous hypert rophy of the intera trial septum is eviden t. No perica rdial abnorm ality is seen. Hyatt ry artery calcif icatio ns are eviden t. The aorta shows athero sclero tic calcif icatio n withou t aneury sm. The pulmon bhupinder trunk is normal in calibe r. There are multip le benign calcif ied nodule s scatte red throug hout the lungs. No concer john solid noncal cified nodule s are identi fied. No pleura l abnorm ality is seen. Degene rative change s are seen throug hout the spine. No aggres sive skelet al lesion s are identi fied. The visibl e portio n of the upper abdome n shows left adrena l hypert rophy. IMPRES [place]ON: 1. No concer john pulmon bhupinder nodule s. 2. Hyatt ry artery athero sclero sis. Lung-R ads: Lung-R ADS 1: Negati ve. No nodule s are seen, or defini tely benign nodule s are seen (with comple te, centra l or popcor n calcif icatio ns or fat in a benign patter n). Risk of cancer less than 1%; contin ue annual low dose chest CT screen ing. MODIFI ER: None Electr onical ly signed by: Ana Brush MD 2024 11:49 AM EDT RP Workst ation: [id number] Dictat ed By: Ana Brush Transc ribed By: Transc ribed On: 025 2:50 PM Electr onical ly signed by: Ana Brush 025 Thank you for referr ing EDITH COUCH to [facility]. Legall y authen ticate d by TIRSO CID MD 07-26 14:50: 59 CC'ed Logic: Orderi ng Provid er: AMBURG EY TAFFAN Y CC Provid er: AMBURG EY TAFFAN Y Attend ing Provid er: AMBURG EY TAFFAN Y Referr ing Provid er: AMBURG EY TAFFAN Y Admitt ing Provid er: AMBURG EY TAFFAN Y [email or web address] [facility] (Radiology) [address] [place] [address] [place], [address], 07/27/2024 15:53:21 Result Notes Documentation Provider Name and Address Organization Details Recorded Time Dexa, Axial Skeleton : [address] [place] [address] Name: JAMAL RANDALL Exam Date: 07/29/2023 : 1950 Age 72 years Gender: F Physician: OZZY JOLLY Facility: [facility] Facility HSV: Outpatient Exam: DE DEXA AXIAL BONE MINERAL DENSITOMETRY, DEXA SCAN CLINICAL HISTORY: Osteoporosis screening. Comparison: None . FINDINGS: Bone densitometry calculations of the lumbar spine and femurs were obtained. Average BMD for the lumbar spine from L1-L4 is 1.163 g/sq cm. T-score is -0.1. Z-score is 0.9. Left femoral neck BMD is 0.878 g/sq cm. T-score is -1.2. Z score is 0.2. Right femoral neck BMD is 0.816 g/sq cm. T-score is -1.6. Z score is -0.2. IMPRESSION: 1. Normal BMD of the lumbar spine. 2. Osteopenia BMD of the left femoral neck. 3. Osteopenia BMD of the right femoral neck. FRAX results gives 10 year probability of a major osteoporotic fracture as 10.6 % and a hip fracture as 1.9 % Films reviewed , interpreted and dictated by Dr. Fozia Lyon. Transcribed by Ian Chirinos PA-C. Dictated By: Fozia olmos Transcribed By: Fozia olmos Transcribed On: 07/29/2023 2:38 PM Electronically signed by: Fozia olmos 07/29/2023 Thank you for referring JAMAL RANDALL to [facility]. Legally authenticated by MOIRA Wheeler MD 2023-07-29 14:38:45 CC'ed Logic: Ordering Provider: RIK PRECIADO CC Provider: RIK PRECIADO Attending Provider: RIK PRECIADO Referring Provider: RIK PRECIADO Admitting Provider: RIK [facility] 07/30/2023 14:38:28 Ldct, Chest, For Lung Cancer Screening : [address] [place] [address] Name: JAMAL RANDALL Exam Date: 07/29/2023 : 1950 Age 72 years Gender: F Physician: YAYA GONZÁLES Facility: [facility] Facility HSV: Outpatient Exam: CT CHEST LOW DOSE CT SCAN OF THE CHEST WITHOUT CONTRAST SCREENING PROTOCOL COMPARISON: 12/10/2021 HISTORY: 20 pack year smoking history in a patient quit smoking 7 years prior.. PROCEDURE: Axial images were obtained from the lung apex to the mid abdomen by computed tomography and a low-dose chest screening protocol. CTDIvo is 1.47 mGy and DLP is 48.33 mGy-cm. FINDINGS: CHEST: There is no axillary adenopathy. There is no hilar or mediastinal adenopathy. Heart size is normal. There are multivessel coronary artery calcifications. There is no pericardial or pleural effusion. Limited images of the upper abdomen are unremarkable. No suspicious infiltrate or nodules identified. There are scattered granulomas. IMPRESSION: Lung RADS category 1: Continued low-dose chest CT surveillance recommended in 1 year. Films reviewed , interpreted and dictated by Dr. Fozia Lyon. Transcribed by Ian Chirinos PA-C. Dictated By: Fozia olmos Transcribed By: Fozia olmos Transcribed On: 07/29/2023 3:28 PM Electronically signed by: Fozia olmos 07/29/2023 Thank you for referring JAMAL RANDALL to [facility]. Legally authenticated by MOIRA Wheeler MD 2023-07-29 15:28:19 CC'ed Logic: Ordering Provider: ELIECER JAVIER CC Provider: RIK PRECIADO Attending Provider: ELIECER JAVIER Referring Provider: ELIECER JAVIER Admitting Provider: ELIECER [facility] 07/30/2023 08:44:03 Mammo, Screening, Digital, Bilateral : [address] [place] [address] Name: JAMAL RANDALL Exam Date: 07/29/2023 : 1950 Age 72 years Gender: F Physician: OZZY JOLLY Facility: [facility] Facility HSV: Outpatient Exam: SCREEN MAMMO W CAD BILAT MAMMOGRAM SCREENING BILATERAL HISTORY: Routine screening exam COMPARISON: None, Baseline exam TECHNIQUE: Standard digital 2-D views with 3-D tomosynthesis DENSITY: There are scattered areas of fibroglandular density FINDINGS: Benign calcifications. Scattered small bilateral asymmetries are probably benign. No definite suspicious mass, suspicious calcifications or architectural distortion is present. IMPRESSION: Scattered small bilateral asymmetries are probably benign. BI-RADS 3: Probably benign finding RECOMMENDATION: Follow-up bilateral diagnostic mammogram in 6 months. CAD was utilized during interpretation. The patient will be sent a letter from the mammography department with their mammography results. Dictated By: Fozia olmos Transcribed By: Fozia olmos Transcribed On: 07/29/2023 3:47 PM Electronically signed by: Fozia olmos 07/29/2023 Thank you for referring JAMAL RANDALL to [facility]. Legally authenticated by MOIRA Wheeler MD 2023-07-29 15:47:19 CC'ed Logic: Ordering Provider: RIK PRECIADO CC Provider: RIK PRECIADO Attending Provider: RIK PRECIADO Referring Provider: RIK PRECIADO Admitting Provider: RIK [facility] 07/30/2023 14:38:22 Mammo, Screening, Digital, Bilateral : [address] [place] [address] Name: JAMAL RANDALL Exam Date: 07/26/2024 : 1950 Age 73 years Gender: F Physician: OZZY JOLLY Facility: [facility] Facility HSV: Outpatient Exam: KENY SCREEN MAMMO W CAD BILAT Exam: 3-D screening mammography including tomosynthesis and CAD (Computer Assisted Detection). Clinical indication: Asymptomatic screening exam Comparison: Exams to 2023 TECHNIQUE: Routine bilateral 2D screening mammogram with CC and MLO views obtained. 3-D tomosynthesis and Computer assisted detection were utilized for this exam. BREAST DENSITY: There are scattered areas of fibroglandular density FINDINGS: No suspicious mass, architectural distortion, or suspicious calcifications are present. IMPRESSION: No evidence of malignancy in either breast Recommendation: Annual screening mammography recommended in one year The results of this report will be communicated to the patient by letter in layman's terms. ACR BI-RADS: BI-RADS assessment category 1: Negative mammogram Mammography does not detect approximately 10-15% of breast cancers. A normal mammogram does not exclude breast cancer in a patient with palpable mass or abnormal findings on physical examination. These patients may need biopsies and when clinically indicated a biopsy should not be postponed because of a normal mammogram. If the patient has breast surgery or biopsy, FDA/SA Regulatory Guidelines mandate that this facility receive pathologic results for follow-up correlation. Electronically signed by: Paulie Jacobo MD 07/26/2024 02:56 PM EDT RP Dictated By: Paulie Jacobo Transcribed By: Transcribed On: 07/26/2024 2:48 PM Electronically signed by: Paulie Jacobo 07/26/2024 Thank you for referring JAMAL RANDALL to [facility]. Legally authenticated by NOLBERTO LEACH MD 2024-07-26 14:48:00 CC'ed Logic: Ordering Provider: RIK PRECIADO CC Provider: RIK PRECIADO Attending Provider: RIK PRECIADO Referring Provider: RIK PRECIADO Admitting Provider: RIK [facility] 07/27/2024 11:32:08 Ldct, Chest, For Lung Cancer Screening : [address] [place] [address] Name: JAMAL RANDALL Exam Date: 07/26/2024 : 1950 Age 73 years Gender: F Physician: OZZY JOLLY Facility: [facility] Facility HSV: Outpatient Exam: CT CHEST LOW DOSE CT CHEST WITHOUT IV CONTRAST 07/26/2024 1:50 PM CDT CLINICAL INDICATION: Female, 73 years old. screening TECHNIQUE: Low-dose screening lung CT was performed. Dose modulation, automated exposure control, and/or interative reconstruction technique used for dose reduction. COMPARISON: CT of the chest 07/29/2023 FINDINGS: Multiple calcified lymph nodes reflect benign sequelae of old granulomatous disease. The visible portion of the thyroid gland is unremarkable. The esophagus is normal. The heart is normal in size. Lipomatous hypertrophy of the interatrial septum is evident. No pericardial abnormality is seen. Coronary artery calcifications are evident. The aorta shows atherosclerotic calcification without aneurysm. The pulmonary trunk is normal in caliber. There are multiple benign calcified nodules scattered throughout the lungs. No concerning solid noncalcified nodules are identified. No pleural abnormality is seen. Degenerative changes are seen throughout the spine. No aggressive skeletal lesions are identified. The visible portion of the upper abdomen shows left adrenal hypertrophy. IMPRESSION: 1. No concerning pulmonary nodules. 2. Coronary artery atherosclerosis. Lung-Rads: Lung-RADS 1: Negative. No nodules are seen, or definitely benign nodules are seen (with complete, central or popcorn calcifications or fat in a benign pattern). Risk of cancer less than 1%; continue annual low dose chest CT screening. MODIFIER: None Electronically signed by: Prashanth Brush MD 07/27/2024 11:49 AM EDT RP Dictated By: Prashanth Brush Transcribed By: Transcribed On: 07/26/2024 2:50 PM Electronically signed by: Prashanth Brush 07/26/2024 Thank you for referring ADRIANAJAMAL SOUTH to [facility]. Legally authenticated by TIRSO CEVALLOS MD 2024-07-26 14:50:59 CC'ed Logic: Ordering Provider: RIK PRECIADO CC Provider: RIK PRECIADO Attending Provider: RIK PRECIADO Referring Provider: RIK PRECIADO Admitting Provider: RIK Tapia null, [place] [place] & [place] 07/27/2024 15:53:22 Problems Name Problem SNOMED Code Status Onset Date Resolution Date Notes Provider Name and Address Organization Details Recorded Time Essential hypertension 65837064 Active 2022 Cristofer Hutchinso n null[place] 4 14:16:20 Chronic kidney disease 884810172 Active 2023 Cristofer Hutchinso n null[place] [facility] & [place] 4 14:16:14 Hyperuricemia 29196427 Active 2023 Cristofer Hutchinso n null[place] [facility] [place] [facility] & [place] 4 14:16:29 Anemia 833334337 Active 2023 Cirstofer Hutchinso n null[place] [facility] [place] [facility] & [place] 4 14:16:38 Moderate persistent asthma 238165498 Active 2023 Cristofer Sainzso n null, [place] - [facility] & [place] 4 14:16:47 Mixed hyperlipidemia 778346582 Active 2023 Cristofer Dixiechinso n null, [place] - [facility] & [place] 4 14:17:23 Gout 99372138 Active 2023 Cristofer Sainzso n null, [place] - [facility] & [place] 4 14:18:44 Problem Notes None recorded. Procedures Surgical History Date Name Laterality Status Provider Name and Address Organization Details Recorded Time 07/16/19 25 Medicare Annual Wellness Visit Health Risk Assessment completed Prisca Barillas [facility] & [place] 07/15/2024 14:34:39 04/06/19 25 Other completed Shyanne Nice [facility] & [place] 09/22/2024 14:34:27 07/14/19 24 Medicare Annual Wellness Visit Health Risk Assessment completed Cirstofer BUSH [facility] & [place] 07/14/2023 14:49:29 11/11/19 23 Feces-based colorectal cancer DNA screening completed Kortney Cassidy [facility] & [place] 04/18/2024 15:01:25 Imaging Results None recorded. Procedure Notes None recorded. Medical Equipment None Reported. Allergies Allergen ID Allergen Name Allergen Category Reaction Reaction Severity Criticality Documentation Date Start Date Code Code System Note Provider Name and Address Organization Details Recorded Time tetracycl ine medicatio n rash Not available Not available 04/23/2022 57686 RxNorm Shyanne Colon null, [place] - NT [facility] & [place] 5 14:33:54 Medications Name Sig Start Date Stop Date Status Note LastModified by Organization Details LastModified Time amoxicillin 500 mg capsule 02/08 completed Not Available Not Available Not Available atorvastati n 40 mg tablet TAKE 1 TABLET BY MOUTH DAILY active Not Available Not Available No t Available atorvastati n 80 mg tablet TAKE 1 TABLET BY MOUTH DAILY 05/31 completed Not Available Not Available Not Available cefuroxime axetil 250 mg tablet Take 1 tablet every 12 hours by oral route for 7 days. 05/31 completed Not Available Not Available Not Available ipratropium 0.5 mg-albutero l 3 mg (2.5 mg base)/3 mL nebulizatio n soln 10/29 completed Not Available Not Available Not Available torsemide 20 mg tablet Take 1 tablet every day by oral route for 90 days. active Not Available Not Available No t Available cetirizine 10 mg tablet Take 1 tablet every day by oral route for 90 days. 2022 active Not Available Not Available Not Avai lable azithromyci n 250 mg tablet TAKE 2 TABLETS (500 MG) BY ORAL ROUTE ONCE DAILY FOR 1 DAY THEN 1 TABLET (250 MG) BY ORAL ROUTE ONCE DAILY FOR 4 DAYS 05/31 completed Not Available Not Available Not Available hydrocodone 5 mg-acetamin ophen 325 mg tablet 07/13 completed Not Available Not Available Not Available amlodipine 5 mg tablet 05/20 completed Not Available Not Available Not Available allopurinol 100 mg tablet TAKE 1 TABLET BY MOUTH DAILY 2024 active Not Available Not Available Not Avai lable ciprofloxac in 500 mg tablet Take 1 tablet every 12 hours by oral route for 5 days. 2024 active Not Available Not Available Not Avai lable tramadol 50 mg tablet Take 1 tablet every day by oral route as needed for 30 days. 05/20 completed Not Available Not Available Not Available prednisone 10 mg tablets in a dose pack Take 1 dose pk every day by oral route for 6 days. 07/16 completed Not Available Not Available Not Available pramipexole 0.5 mg tablet Take 1 tablet every day by oral route at bedtime for 90 days. active Not Available Not Available No t Available prednisolon e acetate 1 % eye drops,suspe nsion 07/15 completed Not Available Not Available Not Available simvastatin 20 mg tablet 07/16 completed Not Available Not Available Not Available lansoprazol e 30 mg capsule,del ayed release Take 1 capsule every day by oral route for 90 days. 05/31 completed Not Available Not Available Not Available pramipexole 0.25 mg tablet TAKE 1 TABLET BY MOUTH DAILY 05/23 completed Not Available Not Available Not Available montelukast 10 mg tablet Take 1 tablet every day by oral route for 90 days. 07/15 completed Not Available Not Available Not Available furosemide 20 mg tablet TAKE 1 TABLET BY MOUTH DAILY 07/13 completed Not Available Not Available Not Available metoprolol succinate ER 25 mg tablet,exte nded release 24 hr Take 1 tablet every day by oral route for 90 days. active Not Available Not Available No t Available methylpredn isolone 4 mg tablets in a dose pack per pack 05/31 completed Not Available Not Available Not Available albuterol sulfate HFA 90 mcg/actuati on aerosol inhaler Inhale 2 puffs every 4 hours by inhalatio n route as needed. active Not Available Not Available No t Available lisinopril 40 mg tablet Take 1 tablet every day by oral route for 90 days. 05/20 completed Not Available Not Available Not Available fluticasone propionate 50 mcg/actuati on nasal spray,suspe nsion 07/16 completed Not Available Not Available Not Available amoxicillin 875 mg-potassiu m clavulanate 125 mg tablet 04/23 completed Not Available Not Available Not Available moxifloxaci n 0.5 % eye drops 05/31 completed Not Available Not Available Not Available Klor-Con M20 mEq tablet,exte nded release TAKE 1 TABLET BY MOUTH DAILY 07/13 completed Not Available Not Available Not Available Mucinex DM 60 mg-1,200 mg tablet,exte nded release 12 hr Take 1 tablet twice a day by oral route for 5 days. 05/31 completed Not Available Not Available Not Available azelastine 205.5 mcg (0.15 %) nasal spray 04/23 completed Not Available Not Available Not Available dapaglifloz in propanediol 10 mg tablet Take 1 tablet every day by oral route for 30 days. 07/15 completed Not Available Not Available Not Available Breo Ellipta 200 mcg-25 mcg/dose powder for inhalation Inhale 1 puff every day by inhalatio n route for 90 days. active Not Available Not Available No t Available Entresto 24 mg-26 mg tablet Take 1 tablet every day by oral route for 90 days. active Not Available Not Available No t Available Trelegy Ellipta 200 mcg-62.5 mcg-25 mcg powder for inhalation Inhale 1 inhalatio n every day by inhalatio n route for 30 days. active Not Available Not Available No t Available Wegovy 1.7 mg/0.75 mL subcutaneou s pen injector INJECT THE CONTENTS OF 1 PEN (1.7 MG / 0.75ML) SUBCUTANE OUSLY ONCE A WEEK active Not Available Not Available No t Available Wegovy 1 mg/0.5 mL subcutaneou s pen injector INJECT 1 MG (0.5 ML) SUBCUTANE OUSLY ONCE A WEEK 05/31 completed Not Available Not Available Not Available Wegovy 0.25 mg/0.5 mL subcutaneou s pen injector 05/20 completed Not Available Not Available Not Available Wegovy 0.5 mg/0.5 mL subcutaneou s pen injector INJECT 0.5MG (0.5 ML) SUBCUTANE OUSLY ONCE A WEEK 05/20 completed Not Available Not Available Not Available Vitals Date Recorded Body height Body mass index (BMI) Body weight Body temperature Oxygen saturation Oxygen saturation in Arterial blood by Pulse oximetry Heart rate Respiratory rate Systolic And Diastolic Provider Name and Address Organization Details Last Updated DateTime 5 165.1 cm 33.4 kg/m2 87272.0 7 g 97.3 [degF] 97 % 97 % 73 /min 18 /min 113/77 mm[Hg] Matt BUSH - [facility] 5 14:37:23 Date Recorded Body height Body mass index (BMI) Body weight Body temperature Oxygen saturation Oxygen saturation in Arterial blood by Pulse oximetry Heart rate Systolic And Diastolic Provider Name and Address Organization Details Last Updated DateTime 5 165.1 cm 33.1 kg/m2 83366.8 8 g 97.5 [degF] 99 % 99 % 81 /min 106/71 mm[Hg] Matt BUSH - [facility] 5 15:55:17 Date Recorded Body height Body mass index (BMI) Body weight Body temperature Oxygen saturation Oxygen saturation in Arterial blood by Pulse oximetry Heart rate Systolic And Diastolic Provider Name and Address Organization Details Last Updated DateTime 4 165.1 cm 38.4 kg/m2 204155. 84 g 98 [degF] 99 % 99 % 78 /min 128/63 mm[Hg] Cristofer jang [facility] & [place] 4 14:45:39 Date Recorded Body height Provider Name an d Address Organization Details Last Updated DateTime 07/15/2024 165.1 cm Cristofer BUSH [facility] & [place] 07/15/2024 14:19:36 Date Recorded Body mass index (BMI) Body weight Body temperature Oxygen saturation Oxygen saturation in Arterial blood by Pulse oximetry Heart rate Systolic And Diastolic Provider Name and Address Organization Details Last Updated DateTime 5 32.8 kg/m2 00433.7 g 98.3 [degF] 98 % 98 % 80 /min 131/73 mm[Hg] Prisca Barillas [facility] & [place] 5 14:28:58 Date Recorded Body height Body mass index (BMI) Body weight Body temperature Oxygen saturation Oxygen saturation in Arterial blood by Pulse oximetry Heart rate Respiratory rate Systolic And Diastolic Provider Name and Address Organization Details Last Updated DateTime 3 165.1 cm 39.3 kg/m2 965062. 8 g 97.9 [degF] 99 % 99 % 86 /min 16 /min 153/76 mm[Hg] Abdiaziz Souza [facility] & [place] 3 11:42:08 Social History Question Answer Notes LastModified by Organizat ion Details LastModified Time Tobacco Smoking Status Former Smoker Cristofer daly, [place]ACHELLE Fong NT [facility] & [place] 07/14/2023 14:46:55 Do You Have An Advance Directive? No [email or web address] Information not available 09/22/2024 Do You Wear A Helmet When Biking? Yes [email or web address] Information not available 05/31/2024 Are You Blind Or Do You Have Difficulty Seeing? No [email or web address] Information not available 05/31/2024 What Is Your Level Of Caffeine Consumption? Occasional [email or web address] Information not available 05/31/2024 In The 14 Days Before Symptom Onset, Have You Had Close Contact With A Laboratory-confir med COVID-19 While That Case Was Ill? No [email or web address] Information not available 05/31/2024 In The 14 Days Before Symptom Onset, Have You Had Close Contact With A Person Who Is Under Investigation For COVID-19 While That Person Was Ill? No [email or web address] Information not available 05/31/2024 Have You Been To An Area Known To Be High Risk For COVID-19? No [email or web address] Information not available 05/31/2024 Are You Deaf Or Do You Have Serious Difficulty Hearing? No [email or web address] Information not available 05/31/2024 What Type Of Diet Are You Following? REGULAR [email or web address] Information not available 05/31/2024 Have You Processed Blood Or Body Fluids From An Ebola Virus Disease Patient Without Appropriate PPE? No [email or web address] Information not available 05/31/2024 Do You Reside In Or Have You Traveled To An Area Where Ebola Virus Transmission Is Active? No [email or web address] Information not available 05/31/2024 Have There Been Any Changes To Your Family Or Social Situation? No [email or web address] Information no t available 05/31/2024 What Is The Fluoride Status Of Your Home? Unknown [email or web address] Information not available 05/31/2024 When Did You Quit Smoking? 6-10yearssince darwin [email or web address] Information not available 07/14/2023 Are There Any Guns Present In Your Home? No [email or web address] Information not available 05/31/2024 Have You Recently Or Are You Planning To Travel To An Area With Zika Virus? No [email or web address] Information not available 05/31/2024 Do You Use Insect Repellent Routinely? Yes [email or web address] Information not available 05/31/2024 In General, Would You Say Your Health Is Very Good Information not available 05/31/2024 How Would You Describe The Condition Of Your Mouth And Teeth including False Teeth Or Dentures? Very Good [email or web address] Information not available 05/31/2024 In The Past 7 Days, How Many Servings Of Fruits And Vegetables Did You Typically Eat Each Day? (1 Serving = 1 Cup Of Fresh Vegetables, 1 2 Cup Of Cooked Vegetables, Or 1 Medium Piece Of Fruit. 1 Cup = Size Of A Baseball.) 3-4 Servings Per Day [email or web address] Information not available 05/31/2024 In The Past 7 Days, How Many Servings Of High Fiber Or Whole Grain Foods Did You Typically Eat Each Day? (1 Serving = 1 Slice Of 100% Whole Wheat Bread, 1 Cup Of Whole-grain Or High-fiber Ddnch-ve-oqs Cereal, 1 2 Cup Of Cooked Cereal Such As Oatmeal, Or 1 2 Cup Of Cooked Brown Rice Or Whole Wheat Pasta.) 3-4 Servings Per Day [email or web address] Information not available 05/31/2024 In The Past 7 Days, How Many Servings Of Fried Or High-fat Foods Did You Typically Eat Each Day? (Examples Include Fried Chicken, Fried Fish, [place], [place], Potato Chips, [place] Chips, Doughnuts, Creamy Salad Dressings, And Foods Made With Whole Milk, Cream, Cheese, Or Mayonnaise.) 1-2 Servings Per Day [email or web address] Information not available 05/31/2024 In The Past 7 Days, How Many Sugar-sweetened (not Diet) Beverages Did You Typically Consume Each Day 1-2 Drinks Per Day [email or web address] Information not available 05/31/2024 Each Night, How Many Hours Of Sleep Do You Usually Get? 7-8 Hours [email or web address] Information not available 05/31/2024 Do You Snore Or Has Anyone Told You That You Snore? No [email or web address] Information not available 05/31/2024 In The Past 7 Days, How Often Have You [place] Sleepy During The Daytime? Sometimes [email or web address] Information not available 05/31/2024 Do You Have Chronic Pain? No [email or web address] Information not available 05/31/2024 In The Past 7 Days, How Would You Rate Your Pain? Moderate Pain(4-6) [email or web address] Information not available 05/31/2024 Are You In A Pain Management Program? No [email or web address] Information not available 05/31/2024 Do You Take Opioids For Your Pain? No [email or web address] Information not available 05/31/2024 How Often Is Stress A Problem For You In Handling Such Things As: Your Health, Your Finances, Your Family And Social Relationships, Your Work? Never Or Rarely [email or web address] Information not available 05/31/2024 How Often Do You Get The Social And Emotional Support You Need: Always [email or web address] Information no t available 05/31/2024 In The Past 7 Days, Did You Need Help From Others To Take Care Of Things Such As Laundry And Housekeep- Ing, Banking, Shopping, Using The Telephone, Food Preparation, Transportation, Or Taking Your Own Medications? No [email or web address] Information not available 05/31/2024 Do You Live Alone? No Information not available 05/31/2024 Does Your Home Have Any Fall Risks (un-level Floors, Unfastened Rugs, Poor Lighting, Etc)? No [email or web address] Information not available 05/31/2024 Do You Feel Safe At Home? Yes [email or web address] Information not available 05/31/2024 Do You Have A Medical Power Of Yardage Control Operator Forming? No [email or web address] Information not available 05/31/2024 What Was The Date Of Your Most Recent Tobacco Screening? 07/15/2024 [email or web address] Information not available 09/22/2024 What Is Your Current Pack Years? 10packyears fpxaqtbo42 Information not available 05/31/2024 Do You Have Any Pets? No [email or web address] Information not available 05/31/2024 Do You Use Your Seat Belt Or Car Seat Routinely? Yes [email or web address] Information not available 05/31/2024 Do You Have Smoke And Carbon Monoxide Detectors In Your Home? Yes [email or web address] Information not available 05/31/2024 Are You Passively Exposed To Smoke? No [email or web address] Information no t available 05/31/2024 How Much Tobacco Do You Smoke? No Information not available 05/31/2024 Do You Use Sunscreen Routinely? Yes ydxehvsr34 Information not available 05/31/2024 Has Tobacco Cessation Counseling Been Provided? Yes [email or web address] Information not available 05/31/2024 On What Date Was Tobacco Cessation Counseling Provided? 07/15/2024 [email or web address] Information not available 07/15/2024 Do You Have Difficulty Walking Or Climbing Stairs? No [email or web address] Information not available 05/31/2024 Are You Currently In School? No [email or web address] Information not available 05/31/2024 Sex: Female Functional Status Question Answer Note LastModified by Organizat ion Details LastModified Time Do you use any illicit or recreational drugs? No Information not available 04/23/2022 Do you or have you ever used any other forms of tobacco or nicotine? No Information not available 04/23/2022 What is your level of alcohol consumption? None Information not available 04/23/2022 Are you currently employed? No prkepuvh16 Information not available 05/31/2024 Do you have transportation difficulties? No [email or web address] Information not available 05/31/2024 Are you able to walk? YESWOREST gelrgunt39 Information not available 05/31/2024 Do you have difficulty doing errands alone? No [email or web address] Information not available 05/31/2024 Are you able to care for yourself? Yes [email or web address] Information not available 05/31/2024 Do you have difficulty dressing or bathing? No hwvoxfgi30 Information not available 05/31/2024 What is your exercise level? None [email or web address] Information not available 09/22/2024 Mental Status Question Answer Note LastModified by Organizat ion Details LastModified Time Do you feel stressed (tense, restless, nervous, or anxious, or unable to sleep at night)? BS0617-7 [email or web address] Information not available 05/31/2024 Do you have difficulty concentrating, remembering or making decisions? No [email or web address] Information no t available 05/31/2024 Family History Relationship Description Onset Age of this Age Resolved Age Notes LastModified by Organization Details LastModified Time Father No current problems or disability Not available 03/2023 14:30:11 Father Allergic rhinitis [email or web address] Not available 2024 14:35:46 Mother No current problems or disability Not available 03/2023 14:30:11 Mother Allergic rhinitis [email or web address] Not available 2024 14:35:46 Mother Asthma Not available 0 09/22/2024 14:36:19 Mother Chronic obstructive pulmonary disease [email or web address] Not available 2024 14:36:31 Maternal Grandmother Heart disease [email or web address] Not available 2024 14:36:55 Maternal Grandmother Family history of malignant neoplasm [email or web address] Not available 2024 14:37:07 Unspecified Relation Cataract Not available 025 14:37:17 Medical History Condition Response Gout Y COPD Y Arthritis Y High Cholesterol Y Reflux/GERD Y Heart Disease Y Hypertension Y Gynecological History Statement/Question Response Menses Monthly N Abnormal Pap N Age at Menarche 60 Sexually Active? N Obstetrics History GPAL:G 0 P 0 0 0 0 Immunizations Vaccine Type Date Status Note Provider Nam e and Address Organization Details Recorded Time Influenza, high-dose, trivalent, PF 7 completed Maribel [place] 04/23/2022 14:36:36 Influenza, high-dose, trivalent, PF 8 completed Maribel [place] 04/23/2022 14:36:36 Influenza, high-dose, trivalent, PF 9 completed Maribel Short [place], [place] [facility] 04/23/2022 14:36:36 Influenza, high-dose, quadrivalent, PF 1 completed Maribel Short [place] [facility] 04/23/2022 14:36:36 Pneumococcal conjugate PCV 13 8 completed Maribel Short null[place] [facility] 04/23/2022 14:36:36 pneumococcal polysaccharide PPV23 8 completed Maribel Short null, [place] [facility] [place] 04/23/2022 14:36:36 Influenza, high-dose, quadrivalent, PF 3 completed OZZY JOLLY NP [address] [place], [address], [place] [facility] & [place] 02/10/2023 12:59:50 Tdap 4 completed OZZY JOLLY NP [address] [place], [address], [place] [facility] & [place] 07/17/2023 08:01:30 zoster recombinant 4 completed OZZY JOLLY NP [address] [place], [address], [place] 07/17/2023 08:01:30 zoster recombinant 5 completed OZZY JOLLY NP [address] [place] [address], [address], [facility] [place] [place] 07/18/2024 08:44:49 Past Encounters Encounter ID Performer Location Encounter Start Date Encounter Closed Date Diagnosis/Indication Diagnosis SNOMED-CT Code Diagnosis ICD10 Code Diagnosis Note [id number] Anna Kaur APRN [address] [address] 04/23/2022 14:05:47 04/23/2022 16:59:47 Seen in primary care establishment [id number] Z76.89 Essential hypertension 30097930 I10 Patients blood pressure is well controlled on present medical therapy. She is tolerating , without difficulty the current medication s. I have made no changes to our current regimen. blood drawn in the right AC, by Maribel Ramos CMA, Patient tolerated well. Gout 85870846 M10.9 updating blood work Dependent edema 95605694 4 R60.0 continue medication s as prescribed will get reports Asthma 201064925 J45.90 9 continue medication s as prescribed Restless legs 22288823 G 25.81 Dyspnea on exertion 6084 5006 R06.09 Fatigue 47603551 R53.83 [id number] Anna Kaur APRN [address] [address] 07/16/2022 13:45:56 07/16/2022 16:50:08 Mixed hyperlipidemia 892695436 E78.2 Patient advised to exercise, eat a prudent diet and lose weight as appropriat e. blood drawn in the right AC by Maribel Ramos CMA, patient tolerated well. Essential hypertension 26999242 I10 Patients blood pressure is well controlled on present medical therapy. She is tolerating , without difficulty the current medication s. I have made no changes to our current regimen. blood drawn in the right AC, by Maribel Ramos CMA, Patient tolerated well. Vitamin D deficiency 347 12066 E55.9 Gout 52007378 M10.9 updating blood work Neuropathy 439196828 G62 .9 Patient presents with signs and symptoms of neuropathy . Previous diagnostic tests: none. History, physical exam, and previous tests indicate: none, I have ordered EMG of lower extremitie s. Discussed need for further diagnostic testing with patient. Seasonal allergy 1025792 04 J30.2 Patient advised to call back if symptoms do not improve or worsen. Patient agrees with below plan. [id number] Anna Kaur APRN [address] [place] [address] 10/29/2022 14:00:41 10/29/2022 14:36:57 Screening for malignant neoplasm of colon 408756192 Z12.11 Screening mammography of bilateral breasts 8788724747 85441 Z12.31 Essential hypertension 45719774 I10 educated on goal of less than 130/90advi sed low sodium diet, healthy lifestyle including exercise as ablecontin ue current medication regimenER if any symptoms such as chest pain, shortness of breath blood drawn in the right AC by Yenny Baker CMA, patient tolerated well. Gout 13963778 M10.9 updating blood work Mixed hyperlipidemia 267 902392 E78.2 Patient advised to exercise, eat a prudent diet and lose weight as appropriat e. Seasonal allergy 6154876 04 J30.2 Patient advised to call back if symptoms do not improve or worsen. Patient agrees with below plan. Restless legs 68749063 G 25.81 Chronic ki dney disease 551028780 N18.9 Prediabetes 994157113 R7 3.03 take medication s as prescribed awaiting [id number] forced diet and lifestyle changesdai ly foot checkyearl y eye examfollow up every 3 months [id number] OZZY JOLLY NP [place] [address] [facility] [place] [id number] 02/03/2023 11:20:45 02/03/2023 12:25:50 Chronic kidney disease 620859465 N18.9 not picked up [place], new from cardiology avoid NSAIDSrech caitlin todayrefer ral was placed by previous PCP in July for nephrology Essential hypertension 51794658 I10 educated on goal of less than 130/90advi sed low sodium diet, healthy lifestyle including exercise as ablecontin ue current medication regimenER if any symptoms such as chest pain, shortness of breath Hyperuricemia 13085846 E 79.0 recheck todaycurre ntly on allopurino l therapycon trolled Anemia 092930116 D64.9 awaiting lab work Administra tion of influenza vaccine 94156966 Z23 Moderate p ersistent asthma 468225295 J45.40 discussed use of montelukas tdiscussed prevention education belowtake allergic medication as prescribed f/u if symptoms persist or worsenOUTD OOR recommenda tions-Stay indoors on dry, windy days. The best time to go outside is after a good rain, which helps clear pollen from the air.Avoid lawn mowing, weed pulling and other gardening chores that stir up allergens. Remove clothes you've worn outside and shower to rinse pollen from your skin and hair.Don't hang laundry outside pollen can stick to sheets and towels.Wea r a face mask if you do outside chores.IND OOR Recommenda tions-Use air conditioni ng in your house and car.-If you have forced air heating or air conditioni ng in your house, use high-effic iency filters and follow regular maintenanc e schedules. Keep indoor air dry with a dehumidifi er.Use a portable high-effic iency particulat e air (HEPA) filter in your bedroom.Cl keyana floors often with a vacuum plate cleaner that has a HEPA filter. Fatigue 75664941 R53.83 awaiting lab worksleep hygiene [id number] Yaya Gonzáles MD [facility] [address] [place], [place] [address] 07/14/2023 14:26:37 07/14/2023 15:39:25 Tobacco dependence caused by cigarettes in remission [id number] F17.211 Essential hypertension 72855961 I10 educated on goal of less than 130/90advi sed low sodium diet, healthy lifestyle including exercise as ablecontin ue current medication regimenER if any symptoms such as chest pain, shortness of breath Adult [facility] examination [id number] Z00.00 Patient presented to office today for their Medicare Annual Wellness Visit. Education was provided on healthy nutrition, including a diet rich in fruits and vegetables , minimizing simple carbohydra estrella, salt, and saturated fats. Encouraged regular cardiovasc ular exercise such as walking at least 30 minutes daily, 5 times per week. Emphasized preventive health measures and educated pt on fall prevention and community- based lifestyle interventi ons to help reduce health risks and promote healthy living. Screening for malignant neoplasm of breast 589025159 Z12.39 Screening for osteoporosis 561113333 Z13.820 Vitamin D deficiency 347 67966 E55.9 recheck lab work today Hyperuricemia 28194122 E 79.0 recheck todaycurre ntly on allopurino l therapycon trolled Anemia 196726297 D64.9 awaiting lab work Hyperglycemia 93021578 R 73.9 reinforced healthy lifestyle Mixed hyperlipidemia 267 293018 E78.2 Patient advised to exercise, eat a prudent diet and lose weight as appropriat e. Administra tion of viral vaccine 11134707 Z23 Moderate p ersistent asthma 278757401 J45.40 -Patient with mild persistent asthma under good control. -Triggers include: -Advised to continue to use albuterol no more than q4h PRN, but call clinic for exacerbati on or if needing to use more than 2x/week or more than 2 nighttime awakenings per month. MDI and spacer use reviewed. -Controlle r medication unchanged. understand s the medication plan including the difference between controller and rescue medication s. -F/u in 3-6 months, sooner if needed. Congestive heart failure 63121798 I50.9 continue workup and follow-up with Cardiology [id number] OZZY JOLLY NP [facility]- [facility] [address] [place], [place] [address] 05/20/2024 14:13:37 05/20/2024 14:56:25 Cough 95969729 R05.1 Dysuria 76128319 R30.0 Acute cystitis 28339899 N30.00 Office UA suggesting UTI, urine sent for culture and office will call after culture received. Take all medicines prescribed for you for the allotted time period. Push fluids especially water. If no better in 48-72 hours or if you develop abdominal or back pain, with fever chills nausea or vomiting come back or go to the emergency room immediatel y Exacerbati on of intermittent asthma 377179046 J45.21 discussed steroid pack as prescribed , use of her inhalers, ER if any urgent signs or symptoms arise Restless legs 62303296 G 25.81 request to return to 0.5 mg dosing, medication sent [id number] OZZY JOLLY NP [address] [place] [address] 05/31/2024 15:28:18 06/06/2024 07:52:36 Anemia 866574554 D64.9 awaiting lab work Chronic ki dney disease 564457694 N18.9 avoid NSAIDS, stay well hydrated, recommend being followed by nephrology Essential hypertension 23586747 I10 educated on goal of less than 130/90advi sed low sodium diet, healthy lifestyle including exercise as ablecontin ue current medication regimenER if any symptoms such as chest pain, shortness of breath Hyperuricemia 37865192 E 79.0 recheck todaycurre ntly on allopurino l therapycon trolled Acute cystitis 57966040 N30.00 Office UA suggesting UTI, urine sent for culture and office will call after culture received. Take all medicines prescribed for you for the allotted time period. Push fluids especially water. If no better in 48-72 hours or if you develop abdominal or back pain, with fever chills nausea or vomiting come back or go to the emergency room immediatel y [id number] OZZY JOLLY NP [address] [place] [address] 07/15/2024 13:26:27 07/15/2024 15:27:03 Adult health examination 704054338 Z00.00 Patient presented to office today for their Medicare Annual Wellness Visit. Education was provided on healthy nutrition, including a diet rich in fruits and vegetables , minimizing simple carbohydra estrella, salt, and saturated fats. Encouraged regular cardiovasc ular exercise such as walking at least 30 minutes daily, 5 times per week. Emphasized preventive health measures and educated pt on fall prevention and community- based lifestyle interventi ons to help reduce health risks and promote healthy living. Tobacco de pendence caused by cigarettes in remission [id number] 1120401 F17.211 Essential hypertension 90350743 I10 educated on goal of less than 130/90advi sed low sodium diet, healthy lifestyle including exercise as ablecontin ue current medication regimenER if any symptoms such as chest pain, shortness of breath Screening for malignant neoplasm of breast 144980771 Z12.39 Vitamin D deficiency 347 34432 E55.9 recheck lab work today Hyperuricemia 36529597 E 79.0 recheck todaycurre ntly on allopurino l therapycon trolled Anemia 321544891 D64.9 awaiting lab work Hyperglycemia 72742884 R 73.9 reinforced healthy lifestyle Mixed hyperlipidemia 267 329793 E78.2 Reinforced lifestyle changes, continue atorvastat in 40 mg once daily Congestive heart failure 30647408 I50.9 continue follow-up with Cardiology , Entresto therapy Immunization due 4932943 08 Z23 Acute cystitis 52801186 N30.00 Office UA suggesting UTI, urine sent for culture and office will call after culture received. Take all medicines prescribed for you for the allotted time period. Push fluids especially water. If no better in 48-72 hours or if you develop abdominal or back pain, with fever chills nausea or vomiting come back or go to the emergency room immediatel y Health Concerns Section Related Observation LastModified by Organization Detai ls LastModified Time None Recorded Concern Status LastModified by Organization Details LastModified Time None Recorded Advance Directives Directive N: Payers Insurance Date Sequence Insurance Name Policy Number Policy Reid Covered Member ID Reid Member ID Guarantor Name 10/20/2024 1 [employer] (MEDICARE REPLACEMENT/ ADVANTAGE - PPO) Jamal Randall [id number] Jamal Randall Notes Date Note Type Note Provider Name and Address Organization Details Recorded Time 02/03/2023 text/html ROS as noted in the HPI Ms. Jamal Randall is a 72-year-old female, previously followed by Anna Kaur, PCP, who is no longer here. 3-month follow-up. On allopurinol therapy for gout, wants to know if she has to take this daily. She had a heart cath last week and had her follow-up yesterday. Thinks she is holding fluid around her heart, so they want to increase her furosemide to twice a day. Echo was normal and no blockages. She has progressively worsened dyspnea mainly with exertion. She quit smoking approximately 5 years ago. She does use Breo and albuterol for asthma. She did try triple-therapy Trelegy but did not see much of a difference. She noticed a scratchy throat that started on Thursday but has not been taking her Zyrtec consistently. Denies any Singulair therapy. OZZY JOLLY NP [address] [place], [address], [facility] & [place] 02/10/2023 13:02:17 07/14/2023 text/html ROS as noted in the HPI Patient presents for annual visit.Vision screening: not UTD, dueDental screening: not UTD, dueAny falls, fractures surgeries: deniesSpecialist: followed by cardiology- seen since last visit due to her continued shortness of breath, diagnosed with heart failure, furosemide switched torsemide- no improvement in breathing, does have lower ext swelling; lactation coordinator ruled out lungs causing her breathing issueColonoscopy: cologuard 2022, negativeAnxiety/Dep ression screening:Mammogram : needsDEXA: needsImmunizations: needs shingles and TdapFormer smoker, 30+ pack-year Needs low-dose CT screening hypertension, started on amlodipine 5 mg; also taking lisinopril 40 mg; as mentioned above does have swelling, shortness of breath, denies chest pain allopurinol for gout, denies any flare ups. Hyperlipidemia, atorvastatin therapy without side effects GERD, lansoprazole OTC restless legs- pramipexole- controlled COPD trelegy, rescue inhaler as needed, controlled, followed by pulmonary OZZY JOLLY NP [address] [place], [address], [facility] & [place] 07/17/2023 08:16:39 05/20/2024 text/html ROS as noted in the HPI 73-year-old female who presents with multiple complaints. Reports urine is cloudy and burning with urination that has been present for over week. She also has sinus drainage, sneezing, wheezing. Tried Mucinex. Denies any fever, chills. Using inhalers as prescribed. Denies any abdominal pain nausea vomiting diarrhea. Also request for her medication for her restless legs go back to 0.5 mg dosing; 0.25 mg not working for her OZZY JOLLY NP [address] [facility], [place], [address], [facility] & [place] 05/23/2024 07:47:14 05/31/2024 text/html ROS as noted in the HPI 73-year-old female who presents for follow-up. Medication list reviewed. She was given antibiotics for lung exacerbation and that is much improved, she also had a urinary tract infection, much improved but has mild burning with [facility]inationfollow[facility]; reports did not follow-up with Nephrology, reports cardiology has been monitoring her kidney function and advised her it is stable. This has been her 1st urinary tract infection since being on Farxiga. Using her wegovy without side effects. Normal bowel and bladder habits. OZZY JOLLY NP [address] [facility], [place], [address], [facility] & [place] 06/05/2024 20:18:52 07/15/2024 text/html ROS as noted in the [facility] Patient presents for annual visit.Vision screening: April 2024Dental screening: last yearAny falls, fractures surgeries: deniesSpecialist: cardiology HMHColonoscopy: did Cologuard 2022 negAnxiety/Depressi on screening: negativeMammogram: July 2023, normalDEXA: July 2023, normalImmunizations : due for shingles vaccination medications reviewed. Denies chest pain shortness of breath or swelling. Continues to work on lifestyle changes. Reports cardiology started on G LP and plans to increase at next visit. Taking Mucinex and Zyrtec, unable to use Flonase for allergy symptoms OZZY JOLLY NP [address] [facility], [place], [address], [facility] & [place] 07/18/2024 08:47:03 OBGyn Episode No OBEpisode recorded.
--- NOTE | 2024-10-27 14:00 | US_ITS ---
FINAL REPORT TECHNIQUE: Sonographic images of the thyroid were obtained. CLINICAL HISTORY: Difficulty swallowing COMPARISON: None FINDINGS: THYROID ULTRASOUND The thyroid is mildly atrophic. There is a 12 mm TR 3 isoechoic nodule in the right lobe. No lesions are noted in the left lobe. IMPRESSION: No thyromegaly. Right thyroid nodule measuring up to 12 mm. There are no specific recommendations for imaging follow-up due to the high likelihood of benign etiology. Reviewed, Interpreted and Dictated by Savannah Casiano MD Transcribed by Lor Moseley Authenticated and [facility]
== END 2024-10-27 23:59 | disposition home or self-care (01) ==
LOC: RAD 13:42
PROVIDERS: PCP Nurse Practitioner Family; Visit Provider Physician Assistant
DX: E04.1 Nontoxic single thyroid nodule (principal); E78.2 Mixed hyperlipidemia; R53.83 Other fatigue; R06.09 Other forms of dyspnea; R00.2 Palpitations; R13.10 Dysphagia, unspecified
CPT/HCPCS: 76536

== ENCOUNTER 2025-01-04 12:53 | Day surgery (SDC) | payer MEDICARE, SELFPAY ==
[2025-01-03 08:42] VITALS: BMI 33.3
--- NOTE | 2025-01-03 17:48 | EXP.HP ---
History of Present Illness *Admission Date: 01/03/25 *History of present illness: Mrs. Randall is a 74-year-old female who is here for diagnostic EGD secondary to dysphagia, globus sensation and LPR. She was referred by ENT/DMITRI Wynn. The examination is deemed medically necessary for diagnostic EGD. The patient has been seen, interviewed and examined prior to the procedure by both myself and the anesthesia provider. [facility] Disclaimer: The information contained in this section may have been updated after the patient was seen, as this information can be updated by other users. Medical History Hx of esophageal ulcer Hoarseness Dysphagia Vocal cord edema Other forms of dyspnea Mixed hyperlipidemia HLD (hyperlipidemia) (HFpEF) heart failure with preserved ejection fraction Coronary artery disease Diastolic dysfunction Pulmonary HTN Abnormal result of cardiovascular function study Abnormal electrocardiogram [ECG] [EKG] Edema of both lower extremities Moderate persistent asthma Encounter for screening for malignant neoplasm of lung in current smoker with 30 pack year history or greater History of smoking 30 or more pack years Allergic rhinitis Asthma Pulmonary emphysema Dyspnea on exertion Asthma High cholesterol Hypertension Surgical History (Updated 01/04/25 @ 13:11 by Bisi Keating RN) History of surgery History of appendectomy Family History Other Asthma Emphysema lung Social History (Updated 01/03/25 @ 08:43 by Judith Beard RN) Smoking Status: Former smoker years smoked: 30 smoking status stop date: 2014 alcohol intake: never substance use type: unknown current occupational status: retired Travel in the last 8 weeks?: None Other Medical History Have you received the Flu Vaccine for this season: No Have you received the Pneumonia Vaccine: Yes Review of Systems Review of Systems Review of systems (narrative): Negative *Cardiovascular Comments: Negative *Gastrointestinal Comments: Negative *Genitourinary Comments: Negative *Musculoskeletal Comments: Negative *Neurologic Comments: Negative Meds Home Medications and Allergies Home Medications ?Medication ?Instructions ?Recorded ?Confirmed ?Type albuterol sulfate 90 mcg/actuation 2 inh inhalation Q6H PRN shortness 12/26/21 01/04/25 Rx aerosol inhaler of breath or wheezing 90 days #8.5 grams pramipexole 0.5 mg tablet 0.5 mg PO DAILY 12/26/21 01/04/25 History allopurinol 100 mg tablet 100 mg PO DAILY 01/05/23 01/04/25 History fluticasone fur. 200 mcg-umeclid 1 inh inhalation DAILY 04/28/23 01/04/25 History 62.5 mcg-vilant 25 mcg inhalat.powder (Trelegy Ellipta) metoprolol succinate 25 mg 25 mg PO QDAY #90 tabs 01/25/24 01/04/25 Rx tablet,extended release 24 hr atorvastatin 80 mg tablet 80 mg PO HS #90 tabs 10/11/24 01/04/25 Rx semaglutide (weight loss) 1.7 1.7 mg (0.75 mL) SQ WEEKLY #3 mL 10/11/24 01/04/25 Rx mg/0.75 mL subcutaneous pen injector famotidine 40 mg tablet 40 mg PO HS #30 tabs 11/09/24 01/04/25 Rx omeprazole 40 mg capsule,delayed 40 mg PO DAILY #30 caps 11/09/24 01/04/25 Rx release torsemide 20 mg tablet 10 mg PO Q OTHER DAY 11/09/24 01/04/25 History dapagliflozin propanediol 10 mg 10 mg PO DAILY #30 tabs 11/21/24 01/04/25 Rx tablet (Farxiga) calcium carb-ergocalciferol (vit 1 tab PO BID 01/04/25 01/04/25 History D2) 600 mg calcium-200 unit tablet New Prescriptions to Start Prescriptions: Allergies Allergy/AdvReac Type Severity Reaction Status Date / Time tetracycline Allergy Rash Verified 01/04/25 13:11 Exam Data for Last 24 hours I & O for Last 24 hours: Intake & Output 12/31/24 01/01/25 01/02/25 01/03/25 23:59 23:59 23:59 23:59 Weight 200 lb *Routine HEENT Exam Head: Present normocephalic Eye: Present EOMI and PERRL ENT: Present mucous membranes moist *Routine Neck Exam Neck: Present supple *Routine Respiratory Exam Respiratory: Present CTA bilaterally *Routine Cardiovascular Exam Cardiovascular: Present RRR *Routine Abdominal Exam Abdominal: Present soft and normoactive bowel sounds; Absent tenderness *Routine Rectal Exam Rectal:: deferred *Routine Genitalia Exam Genitalia:: deferred *Routine Extremities Exam Extremities: Absent cyanosis, clubbing or edema *Routine Skin Exam Skin: Present warm; Absent rash *Routine Neurological Exam Neurological: Present alert and oriented X3 Assessment and Plan *Assessment and plan (1) Dysphagia: Status: Acute Qualifiers: Dysphagia type: unspecified Qualified Code(s): R13.10 - Dysphagia, unspecified Category: Medical Code(s): R13.10 - Dysphagia, unspecified (2) Hoarseness: Status: Acute Category: Medical Code(s): R49.0 - Dysphonia (3) Hx of esophageal ulcer: Status: Acute Category: Medical Code(s): Z87.19 - Personal history of other diseases of the digestive system (4) Vocal cord edema: Status: Acute Category: Medical Code(s): J38.4 - Edema of larynx (5) Laryngopharyngeal reflux: Status: Acute Category: Medical Code(s): K21.9 - Gastro-esophageal reflux disease without esophagitis Plan A/P: 1. Dysphagia, hoarseness, globus, LPR is the preprocedural diagnosis. The patient will be anesthetized/sedated using MAC sedation. The patient has been seen and examined. Cardiac and lung assessment prior to the examination is stable. Proceed with planned diagnostic EGD.
--- NOTE | 2025-01-04 07:15 | P.PCN_ITS ---
[facility] Procedure Note Date: 01/04/25 Time: 13:46 Procedure Note:: Upper Endoscopy Procedure Report: Esophagogastroduodenoscopy with cold biopsies and TTS balloon dilation Endoscopost: Justice Jones II, MD Referring Physician: DMITRI Turcios/DMTIRI Wynn Date of Procedure: January 04, 2025 Equipment: Olympus GIF-1100 standard upper endoscope Sedation: MAC sedation Indications: Mrs. Randall is a 74-year-old female who is here for diagnostic EGD secondary to dysphagia, globus sensation and LPR. The patient reports a lump in her throat and some swallowing difficulty. She has had some belching. She does have a long history of GERD and had been on lansoprazole. She did have the laryngoscopy and she was referred by ENT/DMITRI Wynn. There was evidence of laryngeal edema and LPR. The patient does report frequent clearance of the throat. She does report belching but no bloating. She has been on Wegovy for a year. She has a long history of heartburn and reflux and had an EGD (2008 at [facility]) and had reflux esophagitis. The patient was re cently switched from lansoprazole to omeprazole daily and famotidine nightly. The examination is deemed medically necessary for diagnostic EGD. Procedure: Prior to the procedure, a history and physical exam was performed, and patient's medications and allergies were reviewed. The risks, benefits and alternatives of the sedation and procedure were discussed with the patient. All questions were answered and informed consent was obtained. The patient was brought to the procedure room. Patient identification and proposed procedure were verified by the physician and the nurse. The patient was placed in a left lateral decubitus position and the scope was passed under direct vision. Throughout the procedure, the patient's blood pressure, pulse, and oxygen saturations were monitored continuously. The upper GI endoscopy was accomplished without difficulty. The patient tolerated the procedure well. Findings: The scope was passed directly into the upper esophagus and advanced to the third portion of the duodenum. The post bulbar duodenum and duodenal bulb were normal with normal mucosa and conniventes. There was mild duodenal lymphoid stasis. A cold biopsy was taken from the second portion of the duodenum for the disaccharidase assay. The scope was withdrawn through a normal duodenal bulb and pylorus into the stomach. There was mild antral reactive gastropathy. There was atrophy of the mucosal lining in the body and fundus consistent with chronic atrophic gastritis. 4 cold biopsies were taken from the body and fundus to rule out intestinal metaplasia of the stomach. Upon retroflexion, there was a very small sliding 1 to 2 cm hiatal hernia. The scope was then withdrawn into the esophagus. There was a distal fibrous ring/Schatzki's ring. There was no evidence of reflux esophagitis or Mittal's. There were tertiary contractions and evidence of mild esophageal dysmotility. The entire esophagus was dilated to 60 Syriac/20 mm with a TTS hydrostatic balloon. There was shattering of the Schatzki's ring. There was also a fibrous web at the cricopharyngeus with some cricopharyngeal spasm and this was dilated as well. There was no inlet patch. There was no evidence of eosinophilic esophagitis, corrugation or furrowing. The remainder of the esophageal mucosa was normal. Impression: 1. Proximal esophageal web with cricopharyngeal spasm status post dilation to 20 mm 2. Distal esophageal Schatzki's ring status post dilation to 20 mm 3. Nonerosive GERD with mild esophageal dysmotility and very small sliding 1 to 2 cm hiatal hernia 4. Gastric atrophy?early chronic atrophic gastritis Plan: The patient should improve with esophageal dilation but her globus sensation can be related to increased resistance at the cricopharyngeus. I would recommend avoiding heavy acid suppression in the setting of atrophic gastritis. This affects the parietal cell portion of the stomach (fundus) and most patients are achlorhydria and thus do not produce much acid (HCl). PPI and acid suppression therapy is not going to solve this issue. We will discuss treatment options. I will follow-up the biopsies and disaccharidase assay.
[2025-01-04 13:17] VITALS: BP 100/64; PULSE 64; RESP 20; TEMP 36.3; O2SAT 98
[2025-01-04] MEDS: LACTATED RINGERS 1000ML 1,000 ML 50 ML IV (13:24)
--- NOTE | 2025-01-04 13:34 | EXP.ANES.CKL ---
[facility] Disclaimer: The information contained in this section may have been updated after the patient was seen, as this information can be updated by other users. Medical History Hx of esophageal ulcer Hoarseness Dysphagia Vocal cord edema Other forms of dyspnea Mixed hyperlipidemia HLD (hyperlipidemia) (HFpEF) heart failure with preserved ejection fraction Coronary artery disease Diastolic dysfunction Pulmonary HTN Abnormal result of cardiovascular function study Abnormal electrocardiogram [ECG] [EKG] Edema of both lower extremities Moderate persistent asthma Encounter for screening for malignant neoplasm of lung in current smoker with 30 pack year history or greater History of smoking 30 or more pack years Allergic rhinitis Asthma Pulmonary emphysema Dyspnea on exertion Asthma High cholesterol Hypertension Surgical History History of surgery History of appendectomy Family History Other Asthma Emphysema lung Social History Smoking Status: Former smoker years smoked: 30 smoking status stop date: 2014 alcohol intake: never substance use type: unknown current occupational status: retired Travel in the last 8 weeks?: None [facility] Anesthesia Checklist Patient Identification Patient Identification: Arm Band and Verbal (Name & ) Structural Data Admitted From: Home Planned Operative Procedure/s: EGD Consent for Planned Operative Procedure(s) Verified: Yes Verified Documents: Surgical Consent and History and Physical NPO Status Verified Time NPO: 00:00 Airway Assessment Mallampati Score:: Class II Dentition: Good Dentition Neurological Assessment Level of Consciousness: Awake, Alert and Appropriate Anesthesia Plan Anesthesia Risk discussed: Yes Anesthesia Plan: Verified ASA Class: III Anesthesia Type: MAC
[2025-01-04 13:51] VITALS: BP 101/73; PULSE 70; RESP 18; TEMP 36.3; O2SAT 98
[2025-01-04 14:01] VITALS: BP 110/60; PULSE 63; RESP 16; O2SAT 98
[2025-01-04 14:11] VITALS: BP 117/68; PULSE 59; RESP 16; O2SAT 99
[2025-01-04 14:21] VITALS: BP 127/65; PULSE 59; RESP 16; O2SAT 99
[2025-01-10 13:26] LABS: Interpretation Notes (.); Lactase 38.72 (>/= 14.0); Maltase 191.89 (>/= 110.0); Palatinase 15 (>/= 8.5); Reference Notes (.); Sucrase 59.31 (>/= 25.0)
== END 2025-01-04 14:21 | disposition home or self-care (01) ==
PROVIDERS: PCP Nurse Practitioner Family; Visit Provider Internal Medicine Gastroenterology
PROC: 0DJ08ZZ Inspection of Upper Intestinal Tract, Via Natural or Artificial Opening Endoscopic (ICD-10-PCS; CPT 43239; principal; 2025-01-04 14:30)
DX: K29.40 Chronic atrophic gastritis without bleeding (principal); K22.4 Dyskinesia of esophagus; K44.9 Diaphragmatic hernia without obstruction or gangrene; K22.2 Esophageal obstruction; I89.8 Other specified noninfective disorders of lymphatic vessels and lymph nodes; K31.89 Other diseases of stomach and duodenum; J38.4 Edema of larynx; K21.9 Gastro-esophageal reflux disease without esophagitis; J45.40 Moderate persistent asthma, uncomplicated; E78.5 Hyperlipidemia, unspecified; I11.0 Hypertensive heart disease with heart failure; I50.30 Unspecified diastolic (congestive) heart failure; I25.10 Atherosclerotic heart disease of native coronary artery without angina pectoris; Z87.19 Personal history of other diseases of the digestive system; Z87.891 Personal history of nicotine dependence; Z88.1 Allergy status to other antibiotic agents
CPT/HCPCS: 43239; 43249; 82657; C1726; J2003; J2704; J7120

== ENCOUNTER 2025-02-01 14:23 | Outpatient (CLI) | payer MEDICARE, SELFPAY ==
--- OUTSIDE RECORDS SUMMARY | 2024-12-06 00:11 | XMS_ITS | Continuity of Care Document ---
Author Organization [facility] Phone Care Team Providers Care Aerospace Quality Engineer Name Role Phone OZZY JOLLY Admitting [phone] OZZY JOLLY Primary Care OZZY JOLLY Primary Attending [phone] ALLERGIES AND ADVERSE REACTIONS ALLERGIES AND ADVERSE REACTIONS Code System Allergy Substance Adverse Reaction Date Reaction (Severity) [place] [id number] RXNorm TETRACYCLINE Adverse reaction to substance active [id number] on November 21, 2021 2:26:58 PM UTC RESULTS Patient: ADRIANA Aquino Date of : 1950 LABORATORY RESULTS ORDER 100: CBC AUTO W DIFF ( LOINC: 24480-9) ORDER DATE: December 02, 2024 5:02:00 PM UTC Specimen Source: Whole Blood Specimen Type: Whole blood s ample PERFORMING LAB: [address] [id number] Result Comment: Final Result Date: December 02, 2024 5:37:00 PM UTC (TECH: LT) LOINC TEST FLAG RESULT REFERENCE RANGE UPDA DIANE BY 6690-2 Leukocytes [#/volume] in Blood by Automated count N 9.2 10^3/uL 4.5 10^3/uL - 11.5 10^3/uL December 02, 2024 5:37:00 PM UTC (TECH: LT) 789-8 Erythrocytes [#/volume] in Blood by Automated count L 4.13 10^6/uL 4.25 10^6/uL - 5.57 10^6/uL December 02, 2024 5:37:00 PM UTC (TECH: LT) 718-7 Hemoglobin [Mass/volume] in Blood N 12.5 g/dL 12.0 g/dL - 15.7 g/dL December 02, 2024 5:37:00 PM UTC (TECH: LT) 00151-4 Hematocrit [Volume Fraction] of Blood N 36.7 % 36.0 % - 47.0 % December 02, 2024 5:37:00 PM UTC (TECH: LT) 787-2 Erythrocyte mean corpuscular volume [Entitic volume] by Automated count N 88.9 fl 80 fl - 95 fl December 02, 2024 5:37:00 PM UTC (TECH: LT) 12313-7 Erythrocyte mean corpuscular hemoglobin [Entitic mass] in Blood from Fetus by Automated count N 30.3 pg 27.0 pg - 34.0 pg December 02, 2024 5:37:00 PM UTC (TECH: LT) 35972-0 Erythrocyte mean corpuscular hemoglobin concentration [Mass/volume] in Blood from Fetus by Automated count N 34.1 g/dL 32.0 g/dL - 36.0 g/dL December 02, 2024 5:37:00 PM UTC (TECH: LT) 37195-8 Platelets [#/volume] in Blood N 213 10^3/uL 150 10^3/uL - 450 10^3/uL December 02, 2024 5:37:00 PM UTC (TECH: LT) 60761-6 Erythrocyte distribution width [Ratio] N 13.9 % 12.3 % - 15.1 % December 02, 2024 5:37:00 PM UTC (TECH: LT) 75959-6 Platelet mean volume [Entitic volume] in Blood by Automated count N 10.3 fl 7.4 fl - 10.4 fl December 02, 2024 5:37:00 PM UTC (TECH: LT) 60503-9 Granulocytes/100 leukocytes in Blood by Automated count N 60.5 % 40 % - 75 % December 02, 2024 5:37:00 PM UTC (TECH: LT) 736-9 Lymphocytes/100 leukocytes in Blood by Automated count N 27.2 % 15 % - 57 % December 02, 2024 5:37:00 PM UTC (TECH: LT) 5905-5 Monocytes/100 leukocytes in Blood by Automated count N 10.1 % 4.0 % - 12.0 % December 02, 2024 5:37:00 PM UTC (TECH: LT) 713-8 Eosinophils/100 leukocytes in Blood by Automated count N 1.7 % 0.0 % - 4.0 % December 02, 2024 5:37:00 PM UTC (TECH: LT) 706-2 Basophils/100 leukocytes in Blood by Automated count N 0.3 % 0.0 % - 1.0 % December 02, 2024 5:37:00 PM UTC (TECH: LT) 75714-2 Immature granulocytes [#/volume] in Blood N 0.2 % 0.0 % - 0.8 % December 02, 2024 5:37:00 PM UTC (TECH: LT) 85496-9 Granulocytes [#/volume] in Blood by Automated count N 5.55 10^3/uL December 02, 2024 5:37:00 PM UTC (TECH: LT) 731-0 Lymphocytes [#/volume] in Blood by Automated count N 2.50 10^3/uL December 02, 2024 5:37:00 PM UTC (TECH: LT) 742-7 Monocytes [#/volume] in Blood by Automated count N 0.93 10^3/uL December 02, 2024 5:37:00 PM UTC (TECH: LT) 711-2 Eosinophils [#/volume] in Blood by Automated count N 0.16 10^3/uL December 02, 2024 5:37:00 PM UTC (TECH: LT) 704-7 Basophils [#/volume] in Blood by Automated count N 0.03 10^3/uL December 02, 2024 5:37:00 PM UTC (TECH: LT) 69921-1 Immature granulocytes [#/volume] in Blood N 0.02 10^3/uL December 02, 2024 5:37:00 PM UTC (TECH: LT) 98663-5 Manual differential performed [Presence] in Blood N NO December 02, 2024 5:37:00 PM UTC (TECH: LT) ORDER 200: THYROID STIMULATI NG HORMONE (LOINC: 3016-3) ORDER DATE: December 02, 2024 5:02:00 PM UTC Specimen Source: Serum/Plasm a Specimen Type: Acellular blo od (serum or plasma) specimen PERFORMING LAB: [address] [id number] Result Comment: Final Result Date: December 02, 2024 6:18:00 PM UTC (TECH: LT) LOINC TEST FLAG RESULT REFERENCE RANGE UPDA DIANE BY 3016-3 Thyrotropin [Units/volume] in Serum or Plasma N 0.91 mIU/mL 0.34 mIU/mL - 4.80 mIU/mL December 02, 2024 6:18:00 PM UTC (TECH: LT) ORDER 300: VITAMIN D TOTAL D 2 D3 (LOINC: 06001-6) ORDER DATE: December 02, 2024 5:02:00 PM UTC Specimen Source: Serum/Plasm a Specimen Type: Acellular blo od (serum or plasma) specimen PERFORMING LAB: [address] [id number] Result Comment: Final Result Date: December 02, 2024 6:18:00 PM UTC (TECH: LT) LOINC TEST [place] [address]-4 Calcidiol+Calci ferol [Mass/volume] in Serum or Plasma N 76.4 ng/mL 30 ng/mL - 100 ng/mL December 02, 2024 6:18:00 PM UTC (TECH: LT) ORDER 400: VITAMIN B12 AND F OLATE (LOINC: 78985-9) ORDER DATE: December 02, 2024 5:02:00 PM UTC Specimen Source: Serum/Plasm a Specimen Type: Acellular blo od (serum or plasma) specimen PERFORMING LAB: [address] [id number] Result Comment: Final Result Date: December 02, 2024 6:18:00 PM UTC (TECH: LT) LOINC TEST FLAG RESULT REFERENCE RANGE UPDA DIANE BY 2132-9 Cobalamin (Vitamin B12) [Mass/volume] in Serum or Plasma N 366 pg/mL 193 pg/mL - 986 pg/mL December 02, 2024 6:18:00 PM UTC (TECH: LT) 2282-2 Folate [Mass/volume] in Blood N 13.0 ng/mL 8.6 ng/mL - 58.9 ng/mL December 02, 2024 6:18:00 PM UTC (TECH: LT) ORDER 500: COMP METABOLIC PA SANTHOSH (LOINC: 04959-6) ORDER DATE: December 02, 2024 5:02:00 PM UTC Specimen Source: Serum/Plasm a Specimen Type: Acellular blo od (serum or plasma) specimen PERFORMING LAB: [address] [id number] Result Comment: Final Result Date: December 02, 2024 6:18:00 PM UTC (TECH: LT) LOINC TEST FLAG RESULT REFERENCE RANGE UPDA DIANE BY 2951-2 Sodium [Moles/volume ] in Serum or Plasma N 136 mmol/L 136 mmol/L - 145 mmol/L December 02, 2024 6:18:00 PM UTC (TECH: LT) 2823-3 Potassium [Moles/volume] in Serum or Plasma N 4.3 mmol/L 3.5 mmol/L - 5.1 mmol/L December 02, 2024 6:18:00 PM UTC (TECH: LT) 2075-0 Chloride [Moles/volu me] in Serum or Plasma N 102 mmol/L 98 mmol/L - 107 mmol/L December 02, 2024 6:18:00 PM UTC (TECH: LT) 8-9 Carbon dioxide, tota l [Moles/volume] in Serum or Plasma N 26 mmol/L 21 mmol/L - 32 mmol/L December 02, 2024 6:18:00 PM UTC (TECH: LT) 41671-3 Anion gap 3 in Serum or Plasma N 8.0 December 02, 2024 6:18:00 PM UTC (TECH: LT) 2345-7 Glucose [Mass/volume ] in Serum or Plasma N 103 mg/dL 70 mg/dL - 110 mg/dL December 02, 2024 6:18:00 PM UTC (TECH: LT) 3094-0 Urea nitrogen [Mass/volume] in Serum or Plasma H 24 mg/dL 7 mg/dL - 18 mg/dL December 02, 2024 6:18:00 PM UTC (TECH: LT) 2160-0 Creatinine [Mass/volume] in Serum or Plasma H 1.6 mg/dL 0.6 mg/dL - 1.0 mg/dL December 02, 2024 6:18:00 PM UTC (TECH: LT) 3097-3 Urea nitrogen/Creatinine [Mass Ratio] in Serum or Plasma N 15.0 9 - 21 December 02, 2024 6:18:00 PM UTC (TECH: LT) 62754-1 Glomerular filtratio n rate/1.73 sq M.predicted by Creatinine-based formula (MDRD) L 34 mL/min >60 December 02, 2024 6:18:00 PM UT (TECH: LT) 71417-2 Osmolality of Serum or Plasma by calculated by sum of electrolytes N 287 mosm/kg 275 mosm/kg - 301 mosm/kg December 02, 2024 6:18:00 PM UT (TECH: LT) 2885-2 Protein [Mass/volume ] in Serum or Plasma N 6.9 g/dL 6.4 g/dL - 8.2 g/dL December 02, 2024 6:18:00 PM UT (TECH: LT) 1751-7 Albumin [Mass/volume ] in Serum or Plasma N 3.4 g/dL 3.4 g/dL - 5.0 g/dL December 02, 2024 6:18:00 PM UT (TECH: LT) 10952-4 Calcium [Mass/volume ] in Serum or Plasma N 9.4 mg/dL 8.5 mg/dL - 10.1 mg/dL December 02, 2024 6:18:00 PM UT (TECH: LT) 39963-6 Calcium [Mass/volume ] corrected for total protein in Serum or Plasma N 9.9 mg/dL 8.5 mg/dL - 10.1 mg/dL December 02, 2024 6:18:00 PM [facility] (TECH: LT) 1975-2 Bilirubin.total [Mass/volume] in Serum or Plasma L 0.3 mg/dL 0.4 mg/dL - 1.5 mg/dL December 02, 2024 6:18:00 PM UT (TECH: LT) 1920-8 Aspartate aminotransferase [Enzymatic activity/volume] in Serum or Plasma N 15 U/L 15 U/L - 37 U/L December 02, 2024 6:18:00 PM UT (TECH: LT) 1742-6 Alanine aminotransferase [Enzymatic activity/volume] in Serum or Plasma N 17 U/L 12 U/L - 78 U/L December 02, 2024 6:18:00 PM UT (TECH: LT) 6768-6 Alkaline phosphatase [Enzymatic activity/volume] in Serum or Plasma N 89 U/L 53 U/L - 141 U/L December 02, 2024 6:18:00 PM UTC (TECH: LT) ORDER 600: IRON/TIBC/ SAT IR ON STUDIES (LOINC: 53506-1) ORDER DATE: December 02, 2024 5:02:00 PM UTC Specimen Source: Serum/Plasm a Specimen Type: Acellular blo od (serum or plasma) specimen PERFORMING LAB: [address] [id number] Result Comment: Final Result Date: December 02, 2024 5:49:00 PM UTC (TECH: LT) LOINC TEST FLAG RESULT REFERENCE RANGE UPDA DIANE BY 2498-4 Iron [Mass/volume] in Serum or Plasma N 67 ug/dL 35 ug/dL - 150 ug/dL December 02, 2024 5:49:00 PM UTC (TECH: LT) 2500-7 Iron binding capacity [Mass/volume] in Serum or Plasma N 289 ug/dL 250 ug/dL - 450 ug/dL December 02, 2024 5:49:00 PM UTC (TECH: LT) 78232-1 Oxygen saturation in Blood N 23 % 15 % - 55 % December 02, 2024 5:49:00 PM UTC (TECH: LT) ORDER 700: FERRITIN (LOINC: 2276-4) ORDER DATE: December 02, 2024 5:02:00 PM UTC Specimen Source: Serum/Plasm a Specimen Type: Acellular blo od (serum or plasma) specimen PERFORMING LAB: [address] [id number] Result Comment: Final Result Date: December 02, 2024 6:18:00 PM UTC (TECH: LT) LOINC TEST FLAG RESULT REFERENCE RANGE UPDA DIANE BY 2276-4 Ferritin [Mass/volume] in Serum or Plasma N 203 ng/mL 8 ng/mL - 388 ng/mL December 02, 2024 6:18:00 PM UTC (TECH: LT) ORDER 800: MAGNESIUM (LOINC: 66489-6) ORDER DATE: December 02, 2024 5:02:00 PM UTC Specimen Source: Serum/Plasm a Specimen Type: Acellular blo od (serum or plasma) specimen PERFORMING LAB: [address] [id number] Result Comment: Final Result Date: December 02, 2024 6:18:00 PM UTC (TECH: LT) LOINC TEST FLAG [place] [address]-6 Magnesium [Mass/volume] in Serum or Plasma N 2.2 mg/dL 1.8 mg/dL - 2.4 mg/dL December 02, 2024 6:18:00 PM [facility] (TECH: LT) LABORATORY NARRATIVE RESULTS Information is not available RADIOLOGY RESULTS Information is not available PATHOLOGY NARRATIVE RESULTS Information is not available MICROBIOLOGY RESULTS No Micro Labs/Results Exist for Patient BLOOD ADMIN RESULTS Information is not available MEDICATIONS HOME MEDICATIONS Status RXNORM NDC Medication Dose Route Frequency Dates Comments Reported By Updated By Drug Treatment Unknown DISCHARGE MEDICATIONS Status RXNORM NDC Medication Dose Route Frequency Dates Dis pense Data Comments Physician Updated By No Discharge Medication Info rmation Available INPATIENT MEDICATIONS Status RXNORM NDC Medication Dose Route Frequency Rat e Quantity Dates Indication Dispense Data Comments Physician Updated By No Inpatient Medication Info rmation Available SOCIAL HISTORY SOCIAL HISTORY - Smoking Status SNOMED-CT Social History Element Description Effective Dates Offered Cessation Comment Updated By [id number] Smoking Status Unknown If Ever Smoked SOCIAL HISTORY - Gender Sex: Female SOCIAL HISTORY - Status : status i nformation is not available Intention in Next Year: intention information is not available SOCIAL HISTORY - Assessments Code System Description Status Date Value of Assessment Updated By Comment Assessment Information is no t available SOCIAL HISTORY - [place] Affiliation [place] information is not av ailable SOCIAL HISTORY - Legal Sex Legal Sex information is not available SOCIAL HISTORY - Sexual Behavior Sexual Orientation Gender Identity SNOMED-CT Description SNO MED -CT Description Activity Level No of Partners Partner Type UpdatedBy Information is not available SOCIAL HISTORY - Occupation Occupation information is no t available HEALTH CONCERNS Problems Concern Status Health Concern problem infor mation not available. Smoking Status Status Years Used Consumed packs p er day Health Concern smoking histo ry information not available. Family History Concern Status Health Concern family histor y information not available. ENCOUNTERS ENCOUNTER INFORMATION Reason for Visit Not Specified Admission December 02, 2024 5:02:00 PM [place] [address] [id number] Discharge December 03, 2024 5:02:00 PM [place] D ISCHARGED TO HOME OR SELF CARE ENCOUNTER DIAGNOSES Notes information is not rubens ilable. Code System Diagnosis Onset Date Diagnosis information is not available. ABSTRACT DIAGNOSES Code System Diagnosis Updated By Abatement Date I10 ICD10 ESSENTIAL (PRIMA RY) HYPERTENSION [id number] on December 06, 2024 4:11:02 AM UTC E55.9 ICD10 VITAMIN D DEFICI ENCY, UNSPECIFIED [id number] on December 06, 2024 4:11:02 AM UTC E83.42 ICD10 HYPOMAGNESEMIA [id number] on Se ptember 2024 4:11:02 AM UTC I10 ICD10 ESSENTIAL (PRIMA RY) HYPERTENSION [id number] on December 06, 2024 4:11:02 AM UTC E55.9 ICD10 VITAMIN D DEFICI ENCY, UNSPECIFIED [id number] on December 06, 2024 4:11:02 AM UTC E83.42 ICD10 HYPOMAGNESEMIA [id number] on Se ptember 2024 4:11:02 AM UTC D64.9 ICD10 ANEMIA, UNSPECIFIED [id number] on December 06, 2024 4:11:02 AM UTC CARE TEAM Care Aerospace Quality Engineer Role OZZY JOLLY Admitting OZZY JOLLY Primary Care OZZY JOLLY Primary Attending CARE TEAM CARE machine shop repair technician Role on Team Location Telecom Status Start Date End Jase e Updated By RIK RIZVI Attending normal December 02, 2024 4:00:00 AM UT December 03, 2024 5:02:00 PM UTC [id number] on December 06, 2024 4:09:00 AM [facility] RIK RIZVI Admitting normal December 02, 2024 4:00:00 AM UT December 03, 2024 5:02:00 PM UT [id number] on December 06, 2024 4:09:00 AM [facility] RIK RIZVI PCP normal December 02, 2024 5:02:18 PM UT December 03, 2024 5:02:00 PM UTC [id number] on December 06, 2024 4:09:00 AM UT
--- OUTSIDE RECORDS SUMMARY | 2025-02-01 14:27 | XMS_ITS | Clinical Summary ---
Author Organization [facility] Address [address] [place] [address] Care Team Providers Care Physiotherapy Assistant Name Role Phone Anna Kaur SHAVONNE Primary [...] ANNUAL PHYSICAL 12/19/2022 HEPATITIS C SCREENING 12/19/2022 INFLUENZA VACCINE 11/04/2024 COVID-19 Vaccine ( - season) 2024 Care Teams Physiotherapy Assistant Relationship Specialty Start Date End Date Anna Kaur APRN PCP - General Nurse Practitioner 01/02/23
== END 2025-02-01 23:59 | disposition home or self-care (01) ==
LOC: RT 14:23
PROVIDERS: PCP Nurse Practitioner Family; Visit Provider Physician Assistant
DX: I49.1 Atrial premature depolarization (principal); I49.3 Ventricular premature depolarization; R94.31 Abnormal electrocardiogram [ECG] [EKG]; I25.10 Atherosclerotic heart disease of native coronary artery without angina pectoris; I27.20 Pulmonary hypertension, unspecified
CPT/HCPCS: 93225; 93227

== ENCOUNTER 2025-02-03 13:23 | Outpatient (CLI) | payer MEDICARE, SELFPAY ==
--- OUTSIDE RECORDS SUMMARY | 2025-02-03 13:25 | XMS_ITS | Clinical Summary ---
Author Organization [facility] Address [address] [place] [address] Care Team Providers Care Commercial Glazier Name Role Phone Anna Kaur SHAVONNE Primary [...] Vaccine ( - season) 2024 Care Teams Commercial Glazier Relationship Specialty Start Date End Date Anna Kaur APRN PCP - General Nurse Practitioner 01/02/23
--- NOTE | 2025-02-03 13:45 | CA_ITS ---
APPROVED REPORT EXAM: Comprehensive 2D, Doppler, and color-flow Echocardiogram Radiotelephone Technical Operator: CHAI Jacome, RVS Ht: 5 ft 5 in Wt: 205lbs BSA: 2.00 BP: 110/57 mmHg Indications: CAD, Dyspnea, Fatigue, Pulm HTN, HTN, Palpitations 2D Dimensions Left Atrium 3.36 cm F: 2.7 - 3.8 LA Volume 45.00 mL LA Volume Index 22.927120 mL/m2 (M/F) 16-34 M-Mode Dimensions RVDd 2.13 cm (0.9-2.6) LA Diam 4.47 cm (1.9-4.0) LVDd 5.24 cm (3.5-5.7) LVDs 3.49 cm (3.5-5.7) IVSd 1.11 cm (0.6-1.1) PWd 0.89 cm (0.6-1.1) EF (Teich) 61.70% EPSs 0.60 cm FS 33.40% EDV (Teich) 131.80 mL TAPSE 2.40 (<1.7) ESV (Teich) 50.50 mL LV Diastology E Decel Time 203 (160-240 msec) E/A Ratio 0.81 MED A' 7.70 cm/s LAT A' 10.20 cm/s Aortic Valve MARGUERITE Index 1.51 cm2/m2 AoV Peak Tyree. 131.0 (50-130 cm/s) AO Peak GR. 6.80 mmHg AO Mean GR. 3.50 (<5 mmHg) AO VTI 27.5 (18-25 cm) MARGUERITE (VTI) 3.10 (2.5-4.5 cm2) Mitral Valve MV A Velocity 85.0 (40-130 cm/s) E/A Ratio 0.81 Pulmonary Valve PV Peak Velocity 86.0 (50-150 cm/s) Left Ventricle The left ventricle is normal size. Left ventricular systolic function is normal. The left ventricular ejection fraction is within the normal range. There is increased left ventricular wall thickness. There is normal LV segmental wall motion. Transmitral Doppler flow pattern suggests impaired LV relaxation. LVEF is 55% Right Ventricle The right ventricle is mildly dilated. There is increased RV wall thickness. The right ventricular systolic function is mildly hypokinetic. Atria Left atrium is mildly dilated. Right atrium is mildly dilated. There is no color Doppler evidence of interatrial shunt. Aortic Valve The aortic valve is mildly thickened. There is no hemodynamically significant aortic valvular stenosis. No aortic regurgitation is present. Mitral Valve The mitral valve is normal in structure. No evidence of mitral valve stenosis. Trace mitral regurgitation is present. Tricuspid Valve The tricuspid valve leaflets are thin and pliable. Trace tricuspid regurgitation. There is insufficient TR jet to estimate RVSP. Pulmonic Valve The pulmonary valve is grossly normal in structure. Trace pulmonic valve regurgitation is present. Great Vessels The aortic root is normal in size. IVC is normal in size and collapses >50% with inspiration. Pericardium There is no pericardial effusion. Other Information Study Quality: Technically Difficult Conclusion Normal LV systolic function. Mild RV dilation with mildly reduced RV function. Mild biatrial dilation. No significant valvular stenosis or regurgitation. Electronically signed by : Saundra Kaiser MD 02/06/2025 00:39:44
== END 2025-02-03 23:59 | disposition home or self-care (01) ==
LOC: RT 13:23
PROVIDERS: PCP Nurse Practitioner Family; Visit Provider Physician Assistant
DX: I11.9 Hypertensive heart disease without heart failure (principal); I49.1 Atrial premature depolarization; I47.19 Other supraventricular tachycardia; I49.3 Ventricular premature depolarization; I45.89 Other specified conduction disorders; I25.10 Atherosclerotic heart disease of native coronary artery without angina pectoris; I27.20 Pulmonary hypertension, unspecified
CPT/HCPCS: 93270; 93306